=== PATIENT | female | born 1930 | race Caucasian/White ===

== ENCOUNTER 2018-03-07 12:31 | Inpatient (IN) ==
[2018-03-07] MEDS ORDERED: *HR* LORazepam 1 MG TABLET PO ONE (13:04)
--- NOTE | 2018-03-07 13:42 | Emergency Department Note ---
Disposition Clinical Impression: Suicidal ideation Urinary tract infection Qualifiers: Urinary tract infection type: acute cystitis Hematuria presence: with hematuria Qualified Code(s): N30.01 - Acute cystitis with hematuria Disposition: Still a Patient Condition: Good General Adult HPI - General Chief complaint: ED Urogenital-Female Stated complaint: UTI Time Seen by Provider: 03/07/18 12:40 Source: patient Limitations: no limitations Nursing Notes Reviewed: Yes Vital Signs Reviewed: Yes - History of Present Illness HPI Narrative: Female patient with indwelling catheter presenting to the emergency department complaining of a UTI. States she was sent here by her primary care physician for admission. She has no complaints currently. Family is at bedside stating that she has not been acting herself for the past 3 days. They deny any trauma. Pain Scale: 0 - Related Data Home Medications Medication Instructions Recorded Confirmed Aspirin Enteric Coated [Aspirin EC] 81 mg PO DAILY 12/31/16 03/07/18 Calcium Crb,Cit/D3/Min34/Antonio 1 each PO DAILY 12/31/16 03/07/18 [Citracal + Bone Density Tablet] Ergocalciferol (VITAMIN D2) 50,000 unit PO QWEEK 12/31/16 03/07/18 [Vitamin D2] Gluc Quan/Chondro Quan A/Vit C/Mn 1 each PO DAILY 12/31/16 03/07/18 [Glucosamine Chondroitin Tab] Lansoprazole [Prevacid] 30 mg PO DAILY 12/31/16 03/07/18 Metformin HCl [Glucophage] 1,000 mg PO BID 12/31/16 03/07/18 Oxygen 2 l NS HS 12/31/16 03/07/18 Triamterene/HCTZ 37.5/25mg 1 tab PO DAILY 12/31/16 03/07/18 [Dyazide] amLODIPine [Norvasc] 5 mg PO DAILY 12/31/16 03/07/18 Oxybutynin [Ditropan] 5 mg PO BID 11/11/17 03/07/18 Trazodone HCl 150 mg PO HS 11/15/17 03/07/18 Magnesium Oxide [Magnesium] 400 mg PO DAILY 03/07/18 03/07/18 Meloxicam [Meloxicam] 7.5 mg PO BID 03/07/18 03/07/18 Previous Rx's Medication Instructions Recorded Atorvastatin [Lipitor] 40 mg PO HS tablet 11/16/17 LORazepam [Ativan] 0.5 mg PO TID 5 Days #15 tablet 11/16/17 Sennosides/Docusate Sodium [Senna 2 each PO BID tablet 11/16/17 Plus] Allergies Allergy/AdvReac Type Severity Reaction Status Date / Time atorvastatin [From Lipitor] Allergy Hives Verified 07/23/15 16:34 bacitracin Allergy Blister Verified 07/23/15 16:34 [From Neosporin ([id number])] brompheniramine Allergy See Verified 07/23/15 16:34 [From Drixoral] Comments codeine Allergy Rash Verified 07/23/15 16:34 Cyclobenzaprine Allergy Fatigued Verified 07/23/15 16:34 [From Flexeril] dexbrompheniramine Allergy See Verified 07/23/15 16:34 [From Drixoral] Comments Erythromycin Base Allergy Rash Verified 07/23/15 16:34 [From Erythrocin] Neomycin Allergy Blister Verified 07/23/15 16:34 [From Neosporin ([id number])] Penicillins [PCN] Allergy Rash Verified 07/23/15 16:34 polymyxin B Allergy Blister Verified 07/23/15 16:34 [From Neosporin ([id number])] pseudoephedrine Allergy See Verified 07/23/15 16:34 [From Drixoral] Comments trospium Allergy Swelling Verified 07/23/15 16:34 of Lip/Tongue/Throat All systems ED: reviewed and negative except as stated. Constitutional: Denies: fever, chills ENT ED: Denies: congestion Cardiovascular: Denies: chest pain, palpitations, syncope Respiratory: Denies: cough, dyspnea Gastrointestinal: Reports: abdominal pain (Suprapubic). Denies: nausea, vomiting, diarrhea, hematemesis, melena, hematochezia Genitourinary: Reports: other (Indwelling Alexandra catheter) Musculoskeletal: Denies: back pain Integumentary: Denies: rash Psychiatric: Reports: anxiety Past Medical History - Past Medical History Attestation: Yes The following information was validated with the patient. Source: patient Medical history: Reports: COPD, diabetes, GERD, hyperlipidemia, RA, thyroid disease, other Surgical history: Reports: cataract Psychiatric history: Reports: anxiety, depression ADMIN ASST history: Reports: no ADMIN ASST history - Social History Smoking Status: Former smoker Smokeless Tobacco Status: No Alcohol use: Reports: none Drug use: Reports: none Physical Exam - General Limitations: no limitations General appearance: alert, in no apparent distress Course Course Narrative: Female patient presenting to emergency with a complaint of Chronic UTIs. She is very anxious. She is requesting her Ativan that she generally takes at home but did not take today. She states that she did not like him to the emergency department by her primary care physician suggested she come to the hospital get admitted. She has been on antibiotics 2 times with no relief of her urinary tract infection. He does have a chronic indwelling Alexandra she is unsure why other than she is incontinent. She denies any fevers or chills. He states she has been admitted before for what appeared to be sepsis from a UTI that was not cured outpatient. We will get basic labs on patient and get a urine on her. We will attempt to contact her primary care physician. - Reevaluation(s) Reevaluation #1: We will get basic lab workup on patient and start her on Bactrim at this time. She is now stating that she just wants to . She stated this several times our social work program coordinator. We have pink slipped her. We will have her evaluated by Geriatric psych. Time: 14:12 - Consultations Consultation #1: I spoke with one of the workers at Dr. Alvarenga's office. She states that Dr. Alvarenga told her to call the patient to come to the emergency room to have her Alexandra changed and be started on IV antibiotics. Urine culture from [facility] recently that was positive for Klebsiella in her urine. We have microbiology that is positive for this here 2. The micro-on March 02 shows the sensitivities are consistent with the same micro-from [facility]. Time: 14:08 Consultation #2: Dr Meek accepted pt in stable condition Time: 16:06 Vital Signs Temperature 97.4 F L 03/07/18 12:34 Pulse Rate 91 03/07/18 12:34 Respiratory Rate 16 03/07/18 12:34 Blood Pressure 106/71 03/07/18 12:34 O2 Sat by Pulse Oximetry 96 03/07/18 12:34 Temperature 97.4 F L 03/07/18 12:58 Pulse Rate 79 03/07/18 14:43 Respiratory Rate 18 03/07/18 16:23 Blood Pressure 110/69 03/07/18 16:23 O2 Sat by Pulse Oximetry 96 03/07/18 14:43 Oxygen Delivery Oxygen Delivery Room Air Medical Decision Making - Medical Records Medical records reviewed: Yes I reviewed the patient's medical records. - Lab Data Lab results reviewed: Yes I reviewed the patient's lab results. Result diagrams: 03/07/18 13:58 03/07/18 13:58 Lab Results 03/07/18 03/07/18 03/07/18 Range/Units 13:58 13:58 16:04 WBC 10.6 (4.3-11.1) K/mcL RBC 4.14 (3.82-4.97) M/mcL Hgb 12.3 (11.5-15.4) g/dL Hct 36.1 (35.3-44.9) % MCV 87.2 (83.0-100.0) fL MCH 29.7 (28.0-33.3) pg MCHC 34.1 (31.6-35.5) g/dL RDW 12.9 (11.5-14.5) % Plt Count 167 (140-400) K/mcL MPV 10.3 (9.4-12.4) fL Immature Gran % 0.4 (0-4) % Seg Neutrophils % 69.0 % Lymphocytes % 20.2 % Monocytes % 9.0 % Eosinophils % 1.1 % Basophils % 0.3 % Neutrophils # 7.3 (1.6-8.9) K/mcL Lymphocytes # 2.2 (0.6-4.6) K/mcL Monocytes # 1.0 (0.0-1.3) K/mcL Eosinophils # 0.1 (0.0-0.6) K/mcL Basophils # 0.0 (0.0-0.2) K/mcL Sodium 138 (136-145) mEq/L Potassium 4.6 (3.5-5.1) mEq/L Chloride 101 (98-107) mEq/L Carbon Dioxide 27 (23-29) mEq/L BUN 25 H (8-23) mg/dL Creatinine 1.06 (0.60-1.20) mg/dL Est GFR ( Amer) 60 (> 60) Est GFR (Non-Af Amer) 49 L (> 60) BUN/Creatinine Ratio 24 (6-26) Glucose 115 H (70-105) mg/dL Calculated Osmolality 291 (280-300) Calcium 9.5 (8.6-10.3) mg/dL Urine Color Yellow (Yellow) Urine Clarity Clear (Clear) Urine pH 8.0 (5.0-8.0) pH Units Ur Specific [place] 1.016 (1.010-1.025) Urine Protein Trace (Neg-Trace) mg/dL Urine Glucose (UA) Normal (Normal) mg/dL Urine Ketones Negative (Negative) mg/dL Urine Blood Negative (Negative) Urine Nitrite Negative (Negative) Urine Bilirubin Negative (Negative) Urine Urobilinogen Normal (Normal) mg/dL Ur Leukocyte Esterase Moderate H (Negative) Urine Microscopic RBC 3-5 H (0-3) per hpf Urine Microscopic WBC 30-50 H (0-3) per hpf Ur Squamous Epith Cells Many H (None-Few) per lpf Urine Bacteria None Seen (None-Few) per hpf Hyaline Casts None Seen (None-Few) per lpf Ur Culture Indicated? NO. A (NO) Salicylates < 2.5 L (15.0-30.0) mg/dL Acetaminophen < 10 L (10-20) mcg/mL Ethyl Alcohol < 10 (Less than 10) mg/dL
[2018-03-07] MEDS ORDERED: D5 IVPB STA (14:12)
[2018-03-07] MEDS ORDERED: WATER IVPB STA (14:12)
[2018-03-07] MEDS ORDERED: SULFAMETHOXAZOLE IVPB STA (14:12)
[2018-03-07] MEDS ORDERED: TRIMETH IVPB STA (14:12)
[2018-03-07 14:13] LABS: Basophils % 0.3 %; Eosinophils # 0.1 K/mcL (0.0-0.6); Eosinophils % 1.1 %; Hematocrit 36.1 % (35.3-44.9); Hemoglobin 12.3 g/dL (11.5-15.4); Immature Granulocytes % 0.4 % (0-4); Lymphocytes # 2.2 K/mcL (0.6-4.6); Lymphocytes % 20.2 %; Mean Corpuscular HGB Conc 34.1 g/dL (31.6-35.5); Mean Corpuscular Hemoglobin 29.7 pg (28.0-33.3); Mean Corpuscular Volume 87.2 fL (83.0-100.0); Mean Platelet Volume 10.3 fL (9.4-12.4); Neutrophils # 7.3 K/mcL (1.6-8.9); Platelet Count 167 K/mcL (140-400); Red Blood Count 4.14 M/mcL (3.82-4.97); Red Cell Distribution Width 12.9 % (11.5-14.5)
--- NOTE | 2018-03-07 14:46 | Emergency Department Note ---
Disposition Clinical Impression: Urinary tract infection Qualifiers: Urinary tract infection type: acute cystitis Hematuria presence: with hematuria Qualified Code(s): N30.01 - Acute cystitis with hematuria Disposition: Still a Patient Referrals: Aldo Alvarenga MD [Primary Care Provider] - Forms: ED Satisfaction Letter General Adult HPI - General Chief complaint: ED Urogenital-Female Stated complaint: UTI Time Seen by Provider: 03/07/18 12:40 Source: patient Limitations: no limitations - History of Present Illness Pain Scale: 0 - Related Data Home Medications Medication Instructions Recorded Confirmed Aspirin Enteric Coated [Aspirin EC] 81 mg PO DAILY 12/31/16 11/11/17 Calcium Crb,Cit/D3/Min34/Antonio 1 each PO DAILY 12/31/16 11/11/17 [Citracal + Bone Density Tablet] Ergocalciferol (VITAMIN D2) 50,000 unit PO QWEEK 12/31/16 11/11/17 [Vitamin D2] Gluc Quan/Chondro Quan A/Vit C/Mn 1 each PO DAILY 12/31/16 11/11/17 [Glucosamine Chondroitin Tab] Lansoprazole [Prevacid] 30 mg PO DAILY 12/31/16 11/11/17 Magnesium Oxide [Magnesium] 500 mg PO DAILY 12/31/16 11/11/17 Metformin HCl [Glucophage] 1,000 mg PO BID 12/31/16 11/11/17 Oxygen 2 l NS HS 12/31/16 11/11/17 Potassium Chloride [Klor-Con 10] 10 meq PO BID 12/31/16 11/11/17 Triamterene/HCTZ 37.5/25mg 1 tab PO DAILY 12/31/16 11/11/17 [Dyazide] amLODIPine [Norvasc] 5 mg PO DAILY 12/31/16 11/11/17 Oxybutynin [Ditropan] 5 mg PO BID 11/11/17 11/11/17 Levothyroxine [Synthroid] 25 [place] [address]/15/17 11/15/17 Trazodone HCl 150 mg PO HS 11/15/17 11/15/17 Previous Rx's Medication Instructions Recorded Atorvastatin [Lipitor] 40 mg PO HS tablet 11/16/17 Cefdinir [Omnicef] 300 mg PO BID capsule 11/16/17 LORazepam [Ativan] 0.5 mg PO TID 5 Days #15 tablet 11/16/17 Nitrofurantoin (BID) [Macrobid] 100 mg PO BIDWM capsule 11/16/17 Sennosides/Docusate Sodium [Senna 2 each PO BID tablet 11/16/17 Plus] Allergies Allergy/AdvReac Type Severity Reaction Status Date / Time atorvastatin [From Lipitor] Allergy Hives Verified 07/23/15 16:34 bacitracin Allergy Blister Verified 07/23/15 16:34 [From Neosporin ([id number])] brompheniramine Allergy See Verified 07/23/15 16:34 [From Drixoral] Comments codeine Allergy Rash Verified 07/23/15 16:34 Cyclobenzaprine Allergy Fatigued Verified 07/23/15 16:34 [From Flexeril] dexbrompheniramine Allergy See Verified 07/23/15 16:34 [From Drixoral] Comments Erythromycin Base Allergy Rash Verified 07/23/15 16:34 [From Erythrocin] Neomycin Allergy Blister Verified 07/23/15 16:34 [From Neosporin ([id number])] Penicillins [PCN] Allergy Rash Verified 07/23/15 16:34 polymyxin B Allergy Blister Verified 07/23/15 16:34 [From Neosporin ([id number])] pseudoephedrine Allergy See Verified 07/23/15 16:34 [From Drixoral] Comments trospium Allergy Swelling Verified 07/23/15 16:34 of Lip/Tongue/Throat Past Medical History - Past Medical History Medical history: Reports: COPD, diabetes, GERD, hyperlipidemia, RA, thyroid disease, other Surgical history: Reports: cataract Psychiatric history: Reports: anxiety, depression BEADING INSTALLER history: 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 I agree with the documented findings, disposition and treatment plan as described except to the extent set forth below. Patient seen with emergency medicine resident Dr. Davida Hancock, Please see a copy of his note for details of the H&P, ED evaluation, management and disposition. I have independently evaluated the patient and confirmed appropriate portions of the history and physical exam. Briefly: 87-year-old female anxiety and some dementia presents by EMS for UTI. Patient had a Alexandra catheter changed, urinalysis suggestive for UTI. Patient did make statements of suicidal ideation which is not characteristic for her per family member and medical record review. Patient will undergo comprehensive evaluation and then likely be admitted to the hospitalist service for medical clearance and then evaluation by mental health service. Admission disposition pending Time: 14:44 Vital Signs Temperature 97.4 F L 03/07/18 12:34 Pulse Rate 91 03/07/18 12:34 Respiratory Rate 16 03/07/18 12:34 Blood Pressure 106/71 03/07/18 12:34 O2 Sat by Pulse Oximetry 96 03/07/18 12:34 Temperature 97.4 F L 03/07/18 12:58 Pulse Rate 79 03/07/18 14:43 Respiratory Rate 18 03/07/18 14:43 Blood Pressure 118/74 03/07/18 14:43 O2 Sat by Pulse Oximetry 96 03/07/18 14:43 Oxygen Delivery Oxygen Delivery Room Air Medical Decision Making - Lab Data Result diagrams: 03/07/18 13:58 Lab Results 03/07/18 Range/Units 13:58 WBC 10.6 (4.3-11.1) K/mcL RBC 4.14 (3.82-4.97) M/mcL Hgb 12.3 (11.5-15.4) g/dL Hct 36.1 (35.3-44.9) % MCV 87.2 (83.0-100.0) fL MCH 29.7 (28.0-33.3) pg MCHC 34.1 (31.6-35.5) g/dL RDW 12.9 (11.5-14.5) % Plt Count 167 (140-400) K/mcL MPV 10.3 (9.4-12.4) fL Immature Gran % 0.4 (0-4) % Seg Neutrophils % 69.0 % Lymphocytes % 20.2 % Monocytes % 9.0 % Eosinophils % 1.1 % Basophils % 0.3 % Neutrophils # 7.3 (1.6-8.9) K/mcL Lymphocytes # 2.2 (0.6-4.6) K/mcL Monocytes # 1.0 (0.0-1.3) K/mcL Eosinophils # 0.1 (0.0-0.6) K/mcL Basophils # 0.0 (0.0-0.2) K/mcL
[2018-03-07 14:47] LABS: BUN/Creatinine Ratio 24 (6-26); Blood Urea Nitrogen 25 mg/dL (8-23); Calcium 9.5 mg/dL (8.6-10.3); Carbon Dioxide 27 mEq/L (23-29); Chloride 101 mEq/L (98-107); Glucose 115 mg/dL (70-105); Osmolality,Calculated 291 (280-300); Potassium 4.6 mEq/L (3.5-5.1); Sodium 138 mEq/L (136-145); eGFR For African Americans 60 (> 60); eGFR For Non-African Americans 49 (> 60)
[2018-03-07 15:50] LABS: Acetaminophen < 10 mcg/mL (10-20); Ethanol < 10 mg/dL (Less than 10); Salicylate < 2.5 mg/dL (15.0-30.0)
[2018-03-07 16:19] LABS: Bilirubin,Urine Negative (Negative); Blood,Urine Negative (Negative); Clarity,Urine Clear (Clear); Color,Urine Yellow (Yellow); Glucose,Urine (UA) Normal (Normal); Ketones,Urine Negative (Negative); Leukocyte Esterase,Urine Moderate (Negative); Nitrite,Urine Negative (Negative); Protein,Urine Trace mg/dL (Neg-Trace); Specific Gravity,Urine 1.016 (1.010-1.025); Urobilinogen,Urine Normal (Normal)
[2018-03-07 16:22] LABS: Bacteria,Urine None Seen per hpf (None-Few); Hyaline Casts,Urine None Seen per lpf (None-Few); Squamous Epithelial Cell,Urine Many per lpf (None-Few); WBC,Urine 30-50 per hpf (0-3)
[2018-03-07 16:40] LABS: Amphetamine Screen,Urine Negative ng/mL (Cutoff=1000); Barbiturate Screen,Urine Negative ng/mL (Cutoff=200); Benzodiazepines Screen,Urine Negative ng/mL (Cutoff=200); Cannabinoid Screen,Urine Negative ng/mL (Cutoff = 50); Cocaine Screen,Urine Negative ng/mL (Cutoff= 300); Opiate Screen,Urine Positive ng/mL (Cutoff=300); Phencyclidine Screen,Urine Negative ng/mL (Cutoff=25)
[2018-03-07] MEDS ORDERED: D5% in Water 1,000 ML IVC PRN (17:09)
[2018-03-07] MEDS ORDERED: *HR* Dextrose 50 % in Water (Syg) 50 ML SYRINGE IVP PRN (17:09)
[2018-03-07] MEDS ORDERED: Dextrose Gel 15 GM/37.5 ML TUBE PO PRN ×2 (17:09)
[2018-03-07] MEDS ORDERED: *HR* LORazepam 2 MG/ML VIAL IVP ONE (17:49)
[2018-03-07] MEDS ORDERED: Naloxone 0.4 MG/ML INJ IVP PRN (17:52)
--- NOTE | 2018-03-07 18:18 | Internal Med History&Physical ---
<Pop Balderas - Last Filed: 03/07/18 19:26> Date of Encounter: 03/07/18 Time of Encounter: 17:00 Internal Medicine - H&P: HPI Chief complaint: Urinary Urgency/Frequency/UTI sx Admitted From: Emergency Dept Plans for Post Hospital Care: Home History of present illness: Ms. Fonseca is a 87 year old female w/PMH of COPD, diabetes controlled with oral antihyperglycemic medications, GERD, HLD, RA, and thyroid disease presents from the ED w/CC of urinary urgency, frequency, and UTI sx for the past several days. Pt. reports hx of chronic UTIs w/last hospitalization on November 11, 2017 for UTI/urosepsis. Also reports urinary and fecal incontinence. Sent to ED by PCP d/t being on abx x2 for UTI w/o relief. Alexandra changed in ED. Pt. denies recent illness, fever, chills, nausea, vomiting, changes in vision, headache, unusual bleeding, cough, chest congestion, chest pain, shortness of breath, abdominal pain, diarrhea, constipation, dizziness, lightheadedness, numbness, tingling, pre-syncope, or syncope. Past Med Surg Social Fam HX - Past Medical History Source: patient, old records reviewed, obtained from family Medical history: COPD, diabetes, GERD, hyperlipidemia, RA, thyroid disease, other Psychiatric history: anxiety, depression - Past Surgical History Surgical History: cataract Additional surgical history: tonsils,carpal tunnel - Social History Smoking Status: Former smoker Packs per day: 1 PPD - Reports quitting >30 years ago Smokeless Tobacco Status: No Alcohol use: none Drug use: none Current living situation: Home, With Family Activity Level: Uses cane/walker Recent Out of Country Travel Within the Last 8 Weeks: No Exposure or Possible Exposure to Illness During Travel: No - Family History Daughter Race: Family Member Ethnicity: Non- Living Status: Still Living Hx Family Cardiac Disorders: Yes Mother Race: Family Member Ethnicity: Non- Living Status: Age at : 73 Cause of : Colon cancer Hx Family Cancer: Yes (Colon) Father Race: Family Member Ethnicity: Non- Living Status: Age at : 71 Cause of : [place] Hx Family Cardiac Disorders: Yes ([place], [place]) Internal Medicine - H&P: Meds Aspirin Enteric Coated [Aspirin EC] 81 mg PO DAILY 12/31/16 [History] Calcium Crb,Cit/D3/Min34/Antonio [Citracal + Bone Density Tablet] 1 each PO DAILY 12/31/16 [History] Ergocalciferol (VITAMIN D2) [Vitamin D2] 50,000 unit PO QWEEK 12/31/16 [History] Gluc Quan/Chondro Quan A/Vit C/Mn [Glucosamine Chondroitin Tab] 1 each PO DAILY [History] Lansoprazole [Prevacid] 30 mg PO DAILY 12/31/16 [History] Metformin HCl [Glucophage] 1,000 mg PO BID 12/31/16 [History] Oxygen 2 l NS HS 12/31/16 [History] Triamterene/HCTZ 37.5/25mg [Dyazide] 1 tab PO DAILY 12/31/16 [History] amLODIPine [Norvasc] 5 mg PO DAILY 12/31/16 [History] Oxybutynin [Ditropan] 5 mg PO BID 11/11/17 [History] Trazodone HCl 150 mg PO HS 11/15/17 [History] Atorvastatin [Lipitor] 40 mg PO HS tablet 11/16/17 [Rx] LORazepam [Ativan] 0.5 mg PO TID 5 Days #15 tablet 11/16/17 [Rx] Sennosides/Docusate Sodium [Senna Plus] 2 each PO BID tablet 11/16/17 [Rx] Magnesium Oxide [Magnesium] 400 mg PO DAILY 03/07/18 [History] Meloxicam [Meloxicam] 7.5 mg PO BID 03/07/18 [History] 3 Allergy/AdvReac Type Severity Reaction Status Date / Time bacitracin Allergy Blister Verified 07/23/15 16:34 [From Neosporin ([id number])] brompheniramine Allergy See Verified 07/23/15 16:34 [From Drixoral] Comments codeine Allergy Rash Verified 07/23/15 16:34 Cyclobenzaprine Allergy Fatigued Verified 07/23/15 16:34 [From Flexeril] dexbrompheniramine Allergy See Verified 07/23/15 16:34 [From Drixoral] Comments Erythromycin Base Allergy Rash Verified 07/23/15 16:34 [From Erythrocin] Neomycin Allergy Blister Verified 07/23/15 16:34 [From Neosporin ([id number])] Penicillins [PCN] Allergy Rash Verified 07/23/15 16:34 polymyxin B Allergy Blister Verified 07/23/15 16:34 [From Neosporin ([id number])] pseudoephedrine Allergy See Verified 07/23/15 16:34 [From Drixoral] Comments trospium Allergy Swelling Verified 07/23/15 16:34 of Lip/Tongue/Throat All Systems PM: A 10-system review of systems was performed and is negative for pertinent findings except as documented above in the HPI. - Constitutional Constitutional: fatigue, weakness (Bilateral LEs), no chills, no fever(s), no night sweats - EENT Eyes: no change in vision, no discharge, no pain, no photophobia Ears: no ear discharge, no ear pain, no tinnitus Nose, mouth and throat: no dysphagia, no nasal discharge, no neck pain, no sore throat - Breasts Breasts: as per HPI - Cardiovascular Cardiovascular ROS IM: no chest pain, no diaphoresis, no dyspnea, no lightheadedness, no palpitations, no syncope - Respiratory Respiratory: no cough, no dyspnea, no wheezing, no excessive phlegm production - Gastrointestinal Gastrointestinal: no abdominal pain, no diarrhea, no hematemesis, no hematochezia, no melena, no nausea, no vomiting - Genitourinary Genitourinary: no change in urinary stream, no dysuria, no flank pain, no hematuria - Musculoskeletal Musculoskeletal ROS IM: as per HPI, arthralgias, no numbness, no tingling - Integumentary Integumentary IM: no rash, no unusual bruising - Neurological Neurological ROS: as per HPI, confusion, weakness, no convulsions, no focal weakness, no numbness, no tingling, no tremor(s) - Psychiatric Psychiatric: as per HPI, anxiety, depression - Endocrine Endocrine IM: as per HPI - Hematologic/Lymphatic Hematologic/Lymphatic: no easy bruising - Allergic/Immunologic Allergic/Immunologic: as per HPI - Constitutional Vitals: Temp Pulse Resp BP Pulse Ox 97.4 F L 79 18 110/69 96 03/07/18 12:58 03/07/18 14:43 03/07/18 16:23 03/07/18 16:23 03/07/18 14:43 General appearance: Present: cooperative, mild distress (Anxiety), A&O X 3, pleasant, obese, answers questions appropriately - Head Head exam: Present: atraumatic, normocephalic - Eye Eye exam: Present: PERRL, conjuntiva pink, sclera anicteric Pupils: Present: PERRL - ENT ENT exam: Present: normal exam - Neck Neck exam general surgery: Present: normal inspection, supple, trachea midline. Absent: lymphadenopathy - Respiratory Respiratory exam: Present: CTAB. Absent: accessory muscle use, rales, rhonchi, wheezes - GI/Abdominal GI/Abdominal exam: Present: normal bowel sounds, soft, no peritoneal signs. Absent: distended, tenderness - Rectal Rectal exam: Present: deferred - Additional comments: exam deferred. - Extremities Exam Extremities exam: Present: warm, radial pulses palpable and symmetrical. Absent : calf tenderness, cyanotic, pedal edema - Back Exam Back exam: Present: normal inspection - Neurological Exam Neurological exam: Present: CN II-XII intact, oriented X3, no focal deficits. Absent: pronater drift, facial droop, speech deficit - Psychiatric Psychiatric exam: Present: anxious - Skin Skin exam: Present: dry, intact Internal Med - H&P Results - Labs CBC & Chem 7: 03/07/18 13:58 03/07/18 13:58 - EKG Data EKG shows normal: sinus rhythm - EKG Data Prior EKG available for review: no EKG comments: 03/07/18 19:25 EKG dated 03/07/18 shows sinus rhythm with RBBB. - Assessment and plan (1) Urinary tract infection Current Visit: Yes Status: Acute Assessment and plan: Acute on chronic UTI. Hospitalized on 11/11/17 for UTI. Reports hx of chronic UTIs. Indwelling Alexandra catheter changed today in ED. Microbiology C&S report shows sensitivity to Bactrim from previous admission. ID consult ordered and requires follow-up from morning provider d/t consult being placed after 5 p.m. IVPB Bactrim started in ED @ 800 mg. Will reduce to 400 mg. daily d/t current renal dysfunction. Pt. does not currently meet sepsis criteria w/VS of 97.9F temp, HR of 75, RR of 14, BP of 121/64, and SpO2 of 93% on RA. Pt. has hx of urosepsis and should be monitored closely. Continuous cardiac telemetry. Supplemental O2 w/titration and SpO2 monitoring. Monitor f/u labs, I&O, and daily weight. Pt. discussed w/Dr. Burns who agrees w/plan of care. Pt. is high risk for further morbidity and increasing infection d/t current sx, failed OP therapy for UTI, hx of recurrent UTIs and urosepsis, generalized weakness, current renal dysfunction, hx, and risk factors of hopelessness and anxiety/ depression r/t health. Inpatient. Qualifiers: Urinary tract infection type: acute cystitis Hematuria presence: with hematuria Qualified Code(s): N30.01 - Acute cystitis with hematuria (2) Weakness Current Visit: Yes Status: Acute Assessment and plan: Acute weaknes d/t current and re-current UTIs. Pt. reports being in an ECF post- discharge in 11/28 for rehabilitation. States she has bilateral LE weakness and left hip pain. Falls/safety precautions. Up with assist only. PT/OT consults ordered to assess for rehabilitation needs. (3) GERD (gastroesophageal reflux disease) Current Visit: Yes Status: Chronic Assessment and plan: Hx of chronic GERD. Continue pts. PO Prevacid. IVP Zofran 4 mg Q6HR PRN for N/ V. Qualifiers: Esophagitis presence: esophagitis presence not specified Qualified Code(s) : K21.9 - Gastro-esophageal reflux disease without esophagitis (4) Rheumatoid arthritis Current Visit: Yes Status: Chronic Assessment and plan: Hx of chronic RA. Will hold pts. Meloxicam d/t current renal dysfunction. Tylenol 650 mg Q6HR PRN for mild pain. Tramadol 50 mg TID PRN for moderate pain. Qualifiers: Rheumatoid arthritis location: multiple sites Rheumatoid factor presence: unspecified presence Qualified Code(s): M06.9 - Rheumatoid arthritis, unspecified (5) Thyroid disease Current Visit: Yes Status: Chronic Assessment and plan: Hx of chronic thyroid disease. TSH and Free T4 in a.m. labs. Pt. does not currently take Synthroid but reports taking in the past. (6) Anxiety and depression Current Visit: Yes Status: Chronic Assessment and plan: Hx of chronic anxiety and depression. Pt. reports that she just wants to go to sleep and not wake up. States that she is 87 years old and has anxiety about her health and health of her family. Pt. is clear that she has no suicidal ideations or feelings of self-harm. More feelings of despair and hopelessness. Continue pts. trazodone and Ativan. Monitor pt. for signs of increasing anxiety or depression. Will order sitter if needed. (7) HLD (hyperlipidemia) Current Visit: Yes Status: Chronic Assessment and plan: Hx of chronic HLD. Lipid panel in a.m. labs. Continue patient's Lipitor. Qualifiers: Hyperlipidemia type: pure hypercholesterolemia Qualified Code(s): E78.00 - Pure hypercholesterolemia, unspecified; E78.0 - Pure hypercholesterolemia (8) COPD (chronic obstructive pulmonary disease) Current Visit: Yes Status: Chronic Assessment and plan: Hx of chronic COPD. Stable. Supplemental O2 w/titration and SpO2 monitoring. Qualifiers: COPD type: emphysema Emphysema type: unspecified Qualified Code(s): J43.9 - Emphysema, unspecified (9) Constipation Current Visit: Yes Status: Chronic Assessment and plan: Hx of chronic constipation. Pt. reports no BM since Wednesday. Will continue pts. Senna and add Colace 200 mg daily. Monitor I&O. Qualifiers: Constipation type: other constipation type Qualified Code(s): K59.09 - Other constipation (10) Diabetes 1.5, managed as type 2 Current Visit: Yes Status: Chronic Assessment and plan: Hx of diabetes controlled by oral anti-hyperglycemic medications. Hold Glucophage and administer low-dose correction insulin sliding scale with hypoglycemic protocol. BG checks ACHS. A1c in a.m. labs. (11) DVT prophylaxis Current Visit: Yes Status: Acute Assessment and plan: Bilateral SCDs on LEs for DVT prophylaxis. (12) Hopelessness Current Visit: Yes Status: Acute Assessment and plan: Acute on chronic feelings of hopelessness. ED notes state that pt. wants to resulting in pt. being pink-slipped. During admission assessment, I clarified with the patient that she is not having suicidal ideations or feelings of harming herself. Pt. states that she is tired of being sick and has high anxiety regarding her poor health as well as poor health of family members. Pt. states that she would just like to go to sleep and not wake up. Denies ever having thoughts of suicide. Will place sitter if anxiety or depression increases. - Time Spent With Patient Total time spent is greater than 50% in coordination of care (as documented) at patient's floor/unit and/or counseling patient: Greater than 35 minutes <Sadie Burns - Last Filed: 03/07/18 22:24> Date of Encounter: 03/07/18 Internal Medicine - H&P: HPI History of present illness: Ms. Fonseca is a 87 year old female All Systems PM: A 10-system review of systems was performed and is negative for pertinent findings except as documented above in the HPI. - Constitutional Vitals: Temp Pulse Resp BP Pulse Ox 97.9 F 75 14 121/64 93 03/07/18 18:46 03/07/18 18:46 03/07/18 18:46 03/07/18 18:46 03/07/18 18:46 Internal Med - H&P Results - Labs CBC & Chem 7: 03/07/18 13:58 03/07/18 13:58 - Attending Attestation I have seen and examined this patient independently. I have discussed with KEG WASHER Mr Balderas regarding the management plan. Agree with the documentation. - Assessment and plan (1) Diabetes 1.5, managed as type 2 Current Visit: Yes Status: Chronic (2) COPD (chronic obstructive pulmonary disease) Current Visit: Yes Status: Chronic Qualifiers: COPD type: emphysema Emphysema type: unspecified Qualified Code(s): J43.9 - Emphysema, unspecified (3) Weakness Current Visit: Yes Status: Acute (4) Constipation Current Visit: Yes Status: Chronic Qualifiers: Constipation type: other constipation type Qualified Code(s): K59.09 - Other constipation (5) Urinary tract infection Current Visit: Yes Status: Acute Qualifiers: Urinary tract infection type: acute cystitis Hematuria presence: with hematuria Qualified Code(s): N30.01 - Acute cystitis with hematuria (6) GERD (gastroesophageal reflux disease) Current Visit: Yes Status: Chronic Qualifiers: Esophagitis presence: esophagitis presence not specified Qualified Code(s) : K21.9 - Gastro-esophageal reflux disease without esophagitis (7) Rheumatoid arthritis Current Visit: Yes Status: Chronic Qualifiers: Rheumatoid arthritis location: multiple sites Rheumatoid factor presence: unspecified presence Qualified Code(s): M06.9 - Rheumatoid arthritis, unspecified (8) Thyroid disease Current Visit: Yes Status: Chronic (9) Anxiety and depression Current Visit: Yes Status: Chronic (10) DVT prophylaxis Current Visit: Yes Status: Acute (11) HLD (hyperlipidemia) Current Visit: Yes Status: Chronic Qualifiers: Hyperlipidemia type: pure hypercholesterolemia Qualified Code(s): E78.00 - Pure hypercholesterolemia, unspecified; E78.0 - Pure hypercholesterolemia (12) Hopelessness Current Visit: Yes Status: Acute - Time Spent With Patient Total time spent is greater than 50% in coordination of care (as documented) at patient's floor/unit and/or counseling patient:
[2018-03-07] MEDS ORDERED: Ondansetron 4 MG/2 ML VIAL IVP PRN (18:28)
[2018-03-07] MEDS ORDERED: traMADol 50 MG TABLET PO PRN (18:55)
[2018-03-07] MEDS ORDERED: Acetaminophen 325 MG TABLET PO PRN (18:55)
[2018-03-07] MEDS: Sennosides/Docusate Sodium TABLET PO SCH (20:23)
[2018-03-07] MEDS: Lactobacillus 1 EACH CAP.SPRINK PO SCH (20:23)
[2018-03-07] MEDS: traZODone 50 MG TABLET PO SCH (20:24)
[2018-03-07] MEDS: Insulin LISPRO 300 UNITS/3 ML VIAL SQ SCH (20:42)
[2018-03-07] MEDS ORDERED: *HR* LORazepam 0.5 MG TABLET PO SCH (21:00)
[2018-03-08 05:46] LABS: Basophils % 0.3 %; Eosinophils # 0.3 K/mcL (0.0-0.6); Eosinophils % 3.6 %; Hemoglobin 11.4 g/dL (11.5-15.4); Immature Granulocytes % 0.4 % (0-4); Lymphocytes # 1.3 K/mcL (0.6-4.6); Mean Corpuscular HGB Conc 32.6 g/dL (31.6-35.5); Mean Corpuscular Hemoglobin 28.3 pg (28.0-33.3); Mean Corpuscular Volume 86.8 fL (83.0-100.0); Mean Platelet Volume 10.4 fL (9.4-12.4); Monocytes # 0.8 K/mcL (0.0-1.3); Monocytes % 10.1 %; Neutrophils # 5.1 K/mcL (1.6-8.9); Platelet Count 157 K/mcL (140-400); Red Blood Count 4.03 M/mcL (3.82-4.97); Red Cell Distribution Width 13.1 % (11.5-14.5); Segmented Neutrophils % 68.6 %
[2018-03-08 06:02] LABS: Alanine Aminotransferase 11 Units/L (7-52); Albumin 3.9 g/dL (3.5-5.7); Albumin/Globulin Ratio 1.8 (1.1-2.2); Alkaline Phosphatase 64 Units/L (34-104); Aspartate Amino Transferase 15 Units/L (13-39); BUN/Creatinine Ratio 18 (6-26); Bilirubin,Total 0.5 mg/dL (0.3-1.0); Blood Urea Nitrogen 17 mg/dL (8-23); Calcium 8.9 mg/dL (8.6-10.3); Carbon Dioxide 29 mEq/L (23-29); Chloride 100 mEq/L (98-107); Chol/HDL Ratio 3.7 (0-4.9); Cholesterol 107 mg/dL (< 200); Globulin 2.2 g/dL (2.4-3.5); Glucose 136 mg/dL (70-105); HDL Cholesterol 29 mg/dL (40-59); LDL Cholesterol,Calculated 34 mg/dL (0-99); Magnesium 1.2 mg/dL (1.6-2.6); Osmolality,Calculated 288 (280-300); Potassium 4.2 mEq/L (3.5-5.1); Sodium 137 mEq/L (136-145); Total Protein 6.1 g/dL (6.4-8.9); Triglycerides 221 mg/dL (< 150); eGFR For African Americans > 60 (> 60); eGFR For Non-African Americans 56 (> 60)
[2018-03-08 07:00] LABS: Estimated Average Glucose 143 mg/dl; Hemoglobin A1C 6.6 %
[2018-03-08] MEDS: Magnesium Oxide 400 MG TABLET PO SCH (08:36)
[2018-03-08] MEDS: Insulin LISPRO 300 UNITS/3 ML VIAL SQ SCH ×4 (08:36→21:16)
[2018-03-08] MEDS: Sennosides/Docusate Sodium TABLET PO SCH ×2 (08:36→21:16)
[2018-03-08] MEDS: amLODIPine 5 MG TABLET PO SCH (08:36)
[2018-03-08] MEDS: Lactobacillus 1 EACH CAP.SPRINK PO SCH (08:36)
[2018-03-08] MEDS: Aspirin Enteric Coated 81 MG Tablet PO SCH (08:36)
[2018-03-08] MEDS ORDERED: D3 PO SCH (09:00)
[2018-03-08] MEDS ORDERED: CHONDRO SU A PO SCH (09:00)
[2018-03-08] MEDS ORDERED: [UNRECOGNIZED DRUG - OTHER] PO SCH (09:00)
[2018-03-08] MEDS ORDERED: [UNRECOGNIZED DRUG - OTHER] PO SCH (09:00)
[2018-03-08] MEDS ORDERED: VIT C PO SCH (09:00)
[2018-03-08] MEDS ORDERED: CALCIUM CRB CIT PO SCH (09:00)
[2018-03-08] MEDS ORDERED: GLUC SU PO SCH (09:00)
[2018-03-08] MEDS: Sulfamethoxazole/Trimeth 10 ML in D5% in Water 500 ML IVPB SCH (09:20)
[2018-03-08] MEDS: *HR* LORazepam 0.5 MG TABLET PO PRN ×2 (12:49→21:27)
--- NOTE | 2018-03-08 13:29 | Infectious Disease Consult ---
Date of Encounter: 03/08/18 Time of Encounter: 13:26 Assessment and Plan (1) UTI (urinary tract infection) Status: Resolved Assessment and plan: Causative organism is klebsiella pneumoniae multidrug resistant susceptible to aminoglycosides, fluoroquinolones and Bactrim. Patient is on Bactrim IV Agree with current management Duration of treatment and 14 days A switched to oral Bactrim; CrCl measured at about 40, no dose adjustment for now, if CrCl gets worse, i'd consider changing patient to oral ciprofloxacin We will sign off, please call us if there is any change in the clinical picture. Qualifiers: Urinary tract infection type: acute cystitis Hematuria presence: without hematuria Qualified Code(s): N30.00 - Acute cystitis without hematuria (2) Allergy to antibiotic Status: Acute Assessment and plan: Multiple antibiotic allergies. Exact reaction not known. Patient tells me she does not remember. (3) Chronic kidney disease, stage 4 (severe) Status: Acute Assessment and plan: crcl 40 Infectious Disease HPI - Data of Consult Patient: new to practice Consult date: 03/08/18 Requesting Physician: Flakito Meek Primary Care Provider: Aldo Alvarenga MD - Consult Narrative Reason for consult: uti History of present illness: Ms. Fonseca is a 87 year old female Patient is an 87-year-old woman admitted to [facility] on 03/07 4 recurrent multidrug resistant UTI. We are consulted for antibiotic recommendations. Patient with extensive past medical history mentioned below including her with arthritis, diabetes mellitus, coronary artery disease, thyroid disease represent a chronic Alexandra catheter. Exact reason why she has a chronic Alexandra is probably due to neurogenic bladder but patient does not know. She tells me that without a Alexandra she leaks urine all day. Patient follows up with urology. I saw notes from our urology team on her previously. She apparently tells me that her Alexandra fell off and the nurses came on 3 different days prior to placement of Alexandra. The third day was successful. Nurse and up getting a urine culture. I asked the nurse why she said because the doctor ordered. Patient is not the best historian and not sure if she had any symptoms at that time there was no documentation. Patient denied any fevers or chills or altered mental status or nausea or vomiting or abdominal pain home. CC: Flakito Meek Past Med Surg Social Fam HX - Past Medical History Medical history: COPD, diabetes, GERD, hyperlipidemia, RA, thyroid disease, other Psychiatric history: anxiety, depression - Past Surgical History Surgical History: cataract Additional surgical history: tonsils,carpal tunnel - Social History Smoking Status: Former smoker Packs per day: 1 PPD - Reports quitting >30 years ago Smokeless Tobacco Status: No Alcohol use: none Drug use: none - Family History Daughter Race: Family Member Ethnicity: Non- Living Status: Still Living Hx Family Cardiac Disorders: Yes Mother Race: Family Member Ethnicity: Non- Living Status: Age at : 73 Cause of : Colon cancer Hx Family Cancer: Yes (Colon) Father Race: Family Member Ethnicity: Non- Living Status: Age at : 71 Cause of : [place] Hx Family Cardiac Disorders: Yes ([place], [place]) Infectious Disease-CN:Meds Aspirin Enteric Coated [Aspirin EC] 81 mg PO DAILY 12/31/16 [History] Calcium Crb,Cit/D3/Min34/Antonio [Citracal + Bone Density Tablet] 1 each PO DAILY 12/31/16 [History] Ergocalciferol (VITAMIN D2) [Vitamin D2] 50,000 unit PO QWEEK 12/31/16 [History] Gluc Quan/Chondro Quan A/Vit C/Mn [Glucosamine Chondroitin Tab] 1 each PO DAILY [History] Lansoprazole [Prevacid] 30 mg PO DAILY 12/31/16 [History] Metformin HCl [Glucophage] 1,000 mg PO BID 12/31/16 [History] Oxygen 2 l NS HS 12/31/16 [History] Triamterene/HCTZ 37.5/25mg [Dyazide] 1 tab PO DAILY 12/31/16 [History] amLODIPine [Norvasc] 5 mg PO DAILY 12/31/16 [History] Oxybutynin [Ditropan] 5 mg PO BID 11/11/17 [History] Trazodone HCl 150 mg PO HS 11/15/17 [History] Atorvastatin [Lipitor] 40 mg PO HS tablet 11/16/17 [Rx] LORazepam [Ativan] 0.5 mg PO TID 5 Days #15 tablet 11/16/17 [Rx] Sennosides/Docusate Sodium [Senna Plus] 2 each PO BID tablet 03/06/18 [Rx] Magnesium Oxide [Magnesium] 400 mg PO DAILY 03/07/18 [History] Meloxicam [Meloxicam] 7.5 mg PO BID 03/07/18 [History] 3 Allergy/AdvReac Type Severity Reaction Status Date / Time bacitracin Allergy Blister Verified 07/23/15 16:34 [From Neosporin ([id number])] brompheniramine Allergy See Verified 07/23/15 16:34 [From Drixoral] Comments codeine Allergy Rash Verified 07/23/15 16:34 Cyclobenzaprine Allergy Fatigued Verified 07/23/15 16:34 [From Flexeril] dexbrompheniramine Allergy See Verified 07/23/15 16:34 [From Drixoral] Comments Erythromycin Base Allergy Rash Verified 07/23/15 16:34 [From Erythrocin] Neomycin Allergy Blister Verified 07/23/15 16:34 [From Neosporin ([id number])] Penicillins [PCN] Allergy Rash Verified 07/23/15 16:34 polymyxin B Allergy Blister Verified 07/23/15 16:34 [From Neosporin ([id number])] pseudoephedrine Allergy See Verified 07/23/15 16:34 [From Drixoral] Comments trospium Allergy Swelling Verified 07/23/15 16:34 of Lip/Tongue/Throat Review of systems: 10 point review of systems done, negative other for what mentioned in history of present illness. Exam - Constitutional Vitals: Temp Pulse Resp BP Pulse Ox 98.9 F 64 15 123/53 94 03/08/18 06:46 03/08/18 06:46 03/08/18 06:46 03/08/18 06:46 03/08/18 08:36 General appearance: no acute distress, no febrile - Head Head exam: Present: atraumatic, normocephalic - Respiratory Respiratory exam: Present: CTAB. Absent: wheezes - Cardiovascular Cardiovascular exam: Present: RRR, +S1, +S2 - GI/Abdominal GI/Abdominal exam: Present: normal bowel sounds, soft. Absent: tenderness Infectious Disease CN: Results - Labs CBC & Chem 7: 03/08/18 05:23 03/08/18 05:23 Consult Discharge Plan - Plan Referrals: Aldo Alvarenga MD [Primary Care Provider] - 03/23/18 2:45 pm
--- NOTE | 2018-03-08 16:23 | Electrocardiograph Report ---
[address] [place] [address] Test Date: 2018-03-07 Pat Name: Mitzi Fonseca Department: 113 Room: 3B14 Gender: District Director: ISIDRA : [id number] Requested By: [id number] Order Number: [id number] Reading MD: Paz Gaspar Measurements Intervals [place] Rate: 75 P: 44 OK: 160 QRS: -1 QRSD: 125 T: 29 QT: 467 QTc: 495 Interpretive Statements SINUS RHYTHM RIGHT BUNDLE BRANCH BLOCK Electronically Signed On 03-08-2018 16:21:59 EDT by Paz Gaspar
--- NOTE | 2018-03-08 17:21 | Internal Med Progress Note ---
Date of Encounter: 03/08/18 Time of Encounter: 17:18 - Assessment and plan (1) Urinary tract infection Current Visit: Yes Status: Acute Assessment and plan: She has history of for UTI and was recently hospitalized, urine culture from previous admission showed multidrug resistant organism but sensitive to Bactrim and a fluoroquinolone. Patient already started on IV Bactrim. ID consulted and appreciate his input, recommended to continue Bactrim for total course of 14 days. Plan to change to oral antibiotics tomorrow and a discharge. Qualifiers: Urinary tract infection type: acute cystitis Hematuria presence: with hematuria Qualified Code(s): N30.01 - Acute cystitis with hematuria (2) Diabetes 1.5, managed as type 2 Current Visit: Yes Status: Chronic Assessment and plan: Hx of diabetes controlled by oral anti-hyperglycemic medications. Hold Glucophage and administer low-dose correction insulin sliding scale with hypoglycemic protocol. A1c 6.6. (3) COPD (chronic obstructive pulmonary disease) Current Visit: Yes Status: Chronic Assessment and plan: Hx of chronic COPD. Stable. Supplemental O2 w/titration and SpO2 monitoring. Qualifiers: COPD type: emphysema Emphysema type: unspecified Qualified Code(s): J43.9 - Emphysema, unspecified (4) Weakness Current Visit: Yes Status: Acute (5) Constipation Current Visit: Yes Status: Chronic Assessment and plan: Hx of chronic constipation. Pt. reports no BM since Wednesday. Will continue pts. Senna and add Colace 200 mg daily. Monitor I&O. Qualifiers: Constipation type: other constipation type Qualified Code(s): K59.09 - Other constipation (6) GERD (gastroesophageal reflux disease) Current Visit: Yes Status: Chronic Assessment and plan: Hx of chronic GERD. Continue pts. PO Prevacid. IVP Zofran 4 mg Q6HR PRN for N/ V. Qualifiers: Esophagitis presence: esophagitis presence not specified Qualified Code(s) : K21.9 - Gastro-esophageal reflux disease without esophagitis (7) Rheumatoid arthritis Current Visit: No Status: Chronic Assessment and plan: Hx of chronic RA. Will hold pts. Meloxicam d/t current renal dysfunction. Tylenol 650 mg Q6HR PRN for mild pain. Tramadol 50 mg TID PRN for moderate pain. Qualifiers: Rheumatoid arthritis location: multiple sites Rheumatoid factor presence: unspecified presence Qualified Code(s): M06.9 - Rheumatoid arthritis, unspecified (8) Thyroid disease Current Visit: No Status: Chronic Assessment and plan: Hx of chronic thyroid disease. TSH and Free T4 in a.m. labs. Pt. does not currently take Synthroid but reports taking in the past. (9) Anxiety and depression Current Visit: Yes Status: Chronic Assessment and plan: Hx of chronic anxiety and depression. Pt. reports that she just wants to go to sleep and not wake up. States that she is 87 years old and has anxiety about her health and health of her family. Pt. is clear that she has no suicidal ideations or feelings of self-harm. More feelings of despair and hopelessness. Continue pts. trazodone and Ativan. Monitor pt. for signs of increasing anxiety or depression. Will order sitter if needed. (10) DVT prophylaxis Current Visit: Yes Status: Acute (11) HLD (hyperlipidemia) Current Visit: Yes Status: Chronic Assessment and plan: Hx of chronic HLD. Continue patient's Lipitor. Qualifiers: Hyperlipidemia type: pure hypercholesterolemia Qualified Code(s): E78.00 - Pure hypercholesterolemia, unspecified; E78.0 - Pure hypercholesterolemia (12) Hopelessness Current Visit: Yes Status: Acute Assessment and plan: Acute on chronic feelings of hopelessness. ED notes state that pt. wants to resulting in pt. being pink-slipped. During admission assessment, I clarified with the patient that she is not having suicidal ideations or feelings of harming herself. Pt. states that she is tired of being sick and has high anxiety regarding her poor health as well as poor health of family members. Pt. states that she would just like to go to sleep and not wake up. Denies ever having thoughts of suicide. Will place sitter if anxiety or depression increases. - Time Spent With Patient Total time spent is greater than 50% in coordination of care (as documented) at patient's floor/unit and/or counseling patient: Greater than 35 minutes - Subjective Interval history: Patient seen and examined, she has no complaints at this time. - Constitutional Vitals: Temp Pulse Resp BP Pulse Ox 98.3 F 82 16 110/74 95 03/08/18 15:37 03/08/18 15:37 03/08/18 15:37 03/08/18 15:37 03/08/18 15:37 General appearance: Present: cooperative, mild distress (Anxiety), A&O X 3, pleasant, obese, answers questions appropriately Exam: PHYSICAL EXAMINATION: GENERAL APPEARANCE: The patient is alert, oriented and in no acute distress. HEENT: Head is normocephalic. The sinuses are nontender. Pupils are equal and reactive. The nares are patent. Oropharynx clear without lesions. NECK: Supple without lymphadenopathy. HEART: Regular rate and rhythm. LUNGS: No crackles or wheezes are heard. ABDOMEN: Soft, nontender, nondistended with good bowel sounds heard. Inguinal area is normal. EXTREMITIES: Without cyanosis, clubbing or edema. NEUROLOGICAL: Gross nonfocal. SKIN: Warm and dry without any rash. Internal Medicine: Result - Labs CBC & Chem 7: 03/08/18 05:23 03/08/18 05:23 Labs: Short CBC 03/08/18 Range/Units 05:23 WBC 7.5 (4.3-11.1) K/mcL Hgb 11.4 L (11.5-15.4) g/dL Hct 35.0 L (35.3-44.9) % Plt Count 157 (140-400) K/mcL Neutrophils # 5.1 (1.6-8.9) K/mcL BMP 03/08/18 05:23 Sodium 137 Potassium 4.2 Chloride 100 Carbon Dioxide 29 BUN 17 Creatinine 0.94 Glucose 136 H Calcium 8.9 Liver Function 03/08/18 Range/Units 05:23 Total Bilirubin 0.5 (0.3-1.0) mg/dL AST 15 (13-39) Units/L ALT 11 (7-52) Units/L Alkaline Phosphatase 64 (34-104) Units/L Albumin 3.9 (3.5-5.7) g/dL Consult Discharge Plan - Plan Referrals: Aldo Alvarenga MD [Primary Care Provider] - 03/23/18 2:45 pm
[2018-03-08] MEDS: traZODone 50 MG TABLET PO SCH (21:16)
[2018-03-09 06:26] LABS: Basophils % 0.4 %; Eosinophils # 0.3 K/mcL (0.0-0.6); Eosinophils % 2.9 %; Hematocrit 35.5 % (35.3-44.9); Hemoglobin 11.9 g/dL (11.5-15.4); Immature Granulocytes % 0.3 % (0-4); Lymphocytes # 2.2 K/mcL (0.6-4.6); Lymphocytes % 22.2 %; Mean Corpuscular HGB Conc 33.5 g/dL (31.6-35.5); Mean Corpuscular Hemoglobin 28.9 pg (28.0-33.3); Mean Corpuscular Volume 86.2 fL (83.0-100.0); Mean Platelet Volume 10.9 fL (9.4-12.4); Monocytes # 1.1 K/mcL (0.0-1.3); Monocytes % 11.3 %; Neutrophils # 6.2 K/mcL (1.6-8.9); Platelet Count 157 K/mcL (140-400); Red Blood Count 4.12 M/mcL (3.82-4.97); Red Cell Distribution Width 13.1 % (11.5-14.5); Segmented Neutrophils % 62.9 %
[2018-03-09 06:44] LABS: Albumin/Globulin Ratio 1.7 (1.1-2.2); Bilirubin,Total 0.3 mg/dL (0.3-1.0); Calcium 9.4 mg/dL (8.6-10.3); Globulin 2.4 g/dL (2.4-3.5); Potassium 3.9 mEq/L (3.5-5.1); Total Protein 6.4 g/dL (6.4-8.9)
[2018-03-09 07:32] VITALS: BP 155/76
[2018-03-09] MEDS: Lactobacillus 1 EACH CAP.SPRINK PO SCH (08:37)
[2018-03-09] MEDS: amLODIPine 5 MG TABLET PO SCH (08:37)
[2018-03-09] MEDS: Magnesium Oxide 400 MG TABLET PO SCH (08:37)
[2018-03-09] MEDS: Aspirin Enteric Coated 81 MG Tablet PO SCH (08:37)
[2018-03-09] MEDS: Sennosides/Docusate Sodium TABLET PO SCH (08:38)
[2018-03-09] MEDS: Insulin LISPRO 300 UNITS/3 ML VIAL SQ SCH ×2 (08:38→12:04)
[2018-03-09] MEDS: Sulfamethoxazole/Trimeth 10 ML in D5% in Water 500 ML IVPB SCH (08:38)
--- NOTE | 2018-03-09 09:43 | Discharge Summary ---
- NOTES TO OUTPATIENT PROVIDER Notes to Outpatient Provider: Recommend follow-up within one week for repeat BMP. 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 UA indicative of UTI. 03/02/18 Urine culture showed Klebsiella. Evaluated by infectious disease who recommended Bactrim; to complete a total course of 14 days. Qualifiers: Urinary tract infection type: acute cystitis Hematuria presence: with hematuria Qualified Code(s): N30.01 - Acute cystitis with hematuria (2) Weakness Priority: Primary Status: Acute Assessment and Plan: secondary to current and re-current UTIs. Evaluated by PT/OT who recommended SNF at discharge however patient refused. Discharge home with C. (3) Diabetes 1.5, managed as type 2 Priority: Secondary Status: Chronic Assessment and Plan: per hx. Hgb A1c 6.6%. Continue home diabetes medication regimen. (4) COPD (chronic obstructive pulmonary disease) Priority: Secondary Status: Chronic Assessment and Plan: per hx. No evidence of exacerbation. Qualifiers: COPD type: emphysema Emphysema type: unspecified Qualified Code(s): J43.9 - Emphysema, unspecified (5) Constipation Priority: Secondary Status: Chronic Assessment and Plan: hx chronic constipation. Cont MiraLAX at discharge. Qualifiers: Constipation type: other constipation type Qualified Code(s): K59.09 - Other constipation (6) GERD (gastroesophageal reflux disease) Priority: Secondary Status: Chronic Assessment and Plan: Hx of chronic GERD. Continue prevacid Qualifiers: Esophagitis presence: esophagitis presence not specified Qualified Code(s) : K21.9 - Gastro-esophageal reflux disease without esophagitis (7) Rheumatoid arthritis Priority: Secondary Status: Chronic Assessment and Plan: Hx of chronic RA. Hold home meloxicam while she is on Bactrim for UTI. Defer resuming meloxicam to PCP. Qualifiers: Rheumatoid arthritis location: multiple sites Rheumatoid factor presence: unspecified presence Qualified Code(s): M06.9 - Rheumatoid arthritis, unspecified (8) Thyroid disease Priority: Secondary Status: Chronic Assessment and Plan: Hx of chronic thyroid disease. Not on levothyroxine. TSH normal. Free T4 0.9. Recommend follow-up with PCP outpatient. (9) Anxiety and depression Priority: Secondary Status: Chronic Assessment and Plan: Hx of chronic anxiety and depression. Per previous documentation, patient reported that she just wants to go to sleep and not wake up; stated that she is 87 years old and has anxiety about her health and health of her family. Denied SI/HI on 03/09/18 exam. (10) HLD (hyperlipidemia) Priority: Secondary Status: Chronic Assessment and Plan: Hx of chronic HLD. Continue patient's Lipitor. Qualifiers: Hyperlipidemia type: pure hypercholesterolemia Qualified Code(s): E78.00 - Pure hypercholesterolemia, unspecified; E78.0 - Pure hypercholesterolemia (11) Hopelessness Priority: Primary Status: Acute Assessment and Plan: plan as noted above Hospital course: See assessment and plan for hospital course Discharge discussed with: patient (Seen and examined at bedside; patient is new to me. Information obtained from chart review and patient report. Says she is weak and tired but overall improved. Discussed with her discharge plans to home versus SNF per therapy recommendations and patient is adamantly refusing SNF. Says she will be over take care of herself at home with however . I strongly encouraged her to reconsider however she is adamantly refusing. Stress case with infectious disease and will discharge home on Bactrim.) - Time Spent with Patient Total time spent providing and/or coordinating discharge services: - Discharge Medications Prescriptions: Polyethylene Glycol 3350 [MiraLAX] 17 gm PO DAILY #30 powd.pack Sulfamethoxazole/Trimeth DS [Bactrim DS] 1 each PO BID 12 Days #24 tablet Home Medications: Aspirin Enteric Coated [Aspirin EC] 81 mg PO DAILY 12/31/16 [History] Calcium Crb,Cit/D3/Min34/Antonio [Citracal + Bone Density Tablet] 1 each PO DAILY 12/31/16 [History] Ergocalciferol (VITAMIN D2) [Vitamin D2] 50,000 unit PO QWEEK 12/31/16 [History] Gluc Quan/Chondro Quan A/Vit C/Mn [Glucosamine Chondroitin Tab] 1 each PO DAILY [History] Lansoprazole [Prevacid] 30 mg PO DAILY 12/31/16 [History] Metformin HCl [Glucophage] 1,000 mg PO BID 12/31/16 [History] Oxygen 2 l NS HS 12/31/16 [History] Triamterene/HCTZ 37.5/25mg [Dyazide] 1 tab PO DAILY 12/31/16 [History] amLODIPine [Norvasc] 5 mg PO DAILY 12/31/16 [History] Oxybutynin [Ditropan] 5 mg PO BID 11/11/17 [History] Trazodone HCl 150 mg PO HS 11/15/17 [History] Atorvastatin [Lipitor] 40 mg PO HS tablet 11/16/17 [Rx] LORazepam [Ativan] 0.5 mg PO TID 5 Days #15 tablet 11/16/17 [Rx] Sennosides/Docusate Sodium [Senna Plus] 2 each PO BID tablet 11/16/17 [Rx] Magnesium Oxide [Magnesium] 400 mg PO DAILY 03/07/18 [History] Polyethylene Glycol 3350 [MiraLAX] 17 gm PO DAILY #30 powd.pack 03/09/18 [Rx] Sulfamethoxazole/Trimeth DS [Bactrim DS] 1 each PO BID 12 Days #24 tablet [Rx] Allergies/Adverse Reactions: 3 Allergy/AdvReac Type Severity Reaction Status Date / Time bacitracin Allergy Blister Verified 07/23/15 16:34 [From Neosporin ([id number])] brompheniramine Allergy See Verified 07/23/15 16:34 [From Drixoral] Comments codeine Allergy Rash Verified 07/23/15 16:34 Cyclobenzaprine Allergy Fatigued Verified 07/23/15 16:34 [From Flexeril] dexbrompheniramine Allergy See Verified 07/23/15 16:34 [From Drixoral] Comments Erythromycin Base Allergy Rash Verified 07/23/15 16:34 [From Erythrocin] Neomycin Allergy Blister Verified 07/23/15 16:34 [From Neosporin ([id number])] Penicillins [PCN] Allergy Rash Verified 07/23/15 16:34 polymyxin B Allergy Blister Verified 07/23/15 16:34 [From Neosporin ([id number])] pseudoephedrine Allergy See Verified 07/23/15 16:34 [From Drixoral] Comments trospium Allergy Swelling Verified 07/23/15 16:34 of Lip/Tongue/Throat Date of admission: 03/07/18 18:15 Primary care physician: Aldo Alvarenga MD Discharging clinician: Susy Savage Anticipated date of discharge: 03/09/18 - Constitutional Vitals: Temp Pulse Resp BP Pulse Ox 98.6 F 95 14 155/76 91 03/09/18 07:25 03/09/18 07:25 03/09/18 07:25 03/09/18 07:25 03/09/18 08:38 General appearance: Present: cooperative, A&O X 3, pleasant, obese, answers questions appropriately - Head Head exam: Present: atraumatic, normocephalic - Eye Eye exam: Present: PERRL, conjuntiva pink, sclera anicteric Pupils: Present: PERRL - Neck Neck exam general surgery: Present: supple, trachea midline. Absent: lymphadenopathy - Respiratory Respiratory exam: Present: CTAB. Absent: accessory muscle use, rales, rhonchi, wheezes - Cardiovascular Cardiovascular exam: Present: RRR, +S1, +S2. Absent: diastolic murmur, gallop, rubs, systolic murmur - GI/Abdominal GI/Abdominal exam: Present: normal bowel sounds, soft, no peritoneal signs. Absent: distended, tenderness - Extremities Exam Extremities exam: Present: warm, radial pulses palpable and symmetrical. Absent : calf tenderness, cyanotic, pedal edema - Neurological Exam Neurological exam: Present: CN II-XII intact, oriented X3, no focal deficits. Absent: pronater drift, facial droop, speech deficit - Skin Skin exam: Present: dry, intact - Patient Status Disposition: Home Health Service Condition: Good Functional capacity at discharge: uses cane/walker Overall status at discharge: patient is back to baseline - Discharge Instructions Instructions: Sulfamethoxazole/Trimethoprim (By mouth), Urinary Tract Infection in Women (GEN), Alexandra Catheter Placement and Care (DC), Fall Prevention for Older Adults (GEN), Chronic Urinary Retention in Women (DC) Follow Up With: Aldo Alvarenga MD [Primary Care Provider] - 03/17/18 11:00 am - Diet and Activity Activity: as per physical therapy Diet: diabetic diet
--- NOTE | 2018-03-09 10:06 | Physician Discharge Referral ---
Home Health/Hosp Referral Info Transfer to: Home Health Attending Provider: Susy Savage CNP Provider in Charge Post Discharge: PCP - Diagnosis (1) Urinary tract infection Status: Acute (2) Weakness Status: Acute (3) Diabetes 1.5, managed as type 2 Status: Chronic (4) COPD (chronic obstructive pulmonary disease) Status: Chronic (5) Constipation Status: Chronic (6) GERD (gastroesophageal reflux disease) Status: Chronic (7) Rheumatoid arthritis Status: Chronic (8) Thyroid disease Status: Chronic (9) Anxiety and depression Status: Chronic (10) HLD (hyperlipidemia) Status: Chronic (11) Hopelessness Status: Acute - Respiratory Orders None Smoking Cessation: Smoking cessation has been advised. For more information, call the [place] Tobacco Quit Line at 2-853-LMEM-NOW. - Diet/Nutrition Diet/Nutrition Orders: No Concentrated Sweets - Activity Activity Orders: Ambulate, Walker - Services Needed Following services are medically necessary services: Nursing (Recommend repeat BMP within one week to monitor renal function; results to be faxed to primary care physician), Home Health Aide, Physical Therapy, Occupational Therapy - Transfer Medications Prescriptions: Polyethylene Glycol 3350 [MiraLAX] 17 gm PO DAILY #30 powd.pack Sulfamethoxazole/Trimeth DS [Bactrim DS] 1 each PO BID 12 Days #24 tablet Home Medications: Aspirin Enteric Coated [Aspirin EC] 81 mg PO DAILY 12/31/16 [History] Calcium Crb,Cit/D3/Min34/Antonio [Citracal + Bone Density Tablet] 1 each PO DAILY 12/31/16 [History] Ergocalciferol (VITAMIN D2) [Vitamin D2] 50,000 unit PO QWEEK 12/31/16 [History] Gluc Quan/Chondro Quan A/Vit C/Mn [Glucosamine Chondroitin Tab] 1 each PO DAILY [History] Lansoprazole [Prevacid] 30 mg PO DAILY 12/31/16 [History] Metformin HCl [Glucophage] 1,000 mg PO BID 12/31/16 [History] Oxygen 2 l NS HS 12/31/16 [History] Triamterene/HCTZ 37.5/25mg [Dyazide] 1 tab PO DAILY 12/31/16 [History] amLODIPine [Norvasc] 5 mg PO DAILY 12/31/16 [History] Oxybutynin [Ditropan] 5 mg PO BID 11/11/17 [History] Trazodone HCl 150 mg PO HS 11/15/17 [History] Atorvastatin [Lipitor] 40 mg PO HS tablet 11/16/17 [Rx] LORazepam [Ativan] 0.5 mg PO TID 5 Days #15 tablet 11/16/17 [Rx] Sennosides/Docusate Sodium [Senna Plus] 2 each PO BID tablet 11/16/17 [Rx] Magnesium Oxide [Magnesium] 400 mg PO DAILY 03/07/18 [History] Polyethylene Glycol 3350 [MiraLAX] 17 gm PO DAILY #30 powd.pack 03/09/18 [Rx] Sulfamethoxazole/Trimeth DS [Bactrim DS] 1 each PO BID 12 Days #24 tablet [Rx] Allergies/Adverse Reactions: 3 Allergy/AdvReac Type Severity Reaction Status Date / Time bacitracin Allergy Blister Verified 07/23/15 16:34 [From Neosporin ([id number])] brompheniramine Allergy See Verified 07/23/15 16:34 [From Drixoral] Comments codeine Allergy Rash Verified 07/23/15 16:34 Cyclobenzaprine Allergy Fatigued Verified 07/23/15 16:34 [From Flexeril] dexbrompheniramine Allergy See Verified 07/23/15 16:34 [From Drixoral] Comments Erythromycin Base Allergy Rash Verified 07/23/15 16:34 [From Erythrocin] Neomycin Allergy Blister Verified 07/23/15 16:34 [From Neosporin ([id number])] Penicillins [PCN] Allergy Rash Verified 07/23/15 16:34 polymyxin B Allergy Blister Verified 07/23/15 16:34 [From Neosporin ([id number])] pseudoephedrine Allergy See Verified 07/23/15 16:34 [From Drixoral] Comments trospium Allergy Swelling Verified 07/23/15 16:34 of Lip/Tongue/Throat Certification: Further, I certify that my clinical findings support that this patient is homebound (i.e. absences from home require considerable and taxing effort and are for medical reasons or anabaptist services or infrequently or short duration when for other reasons) because: Homebound Reason: Patient requires assistance of a person or device to safely leave home Attestation: My signature below is to certify that this patient is under my care and that I, or nurse practitioner, or a physician's producer assistant working with me, has a face-to -face encounter with this patient.
== END 2018-03-09 15:03 | disposition home health service (06) | DRG 690 ==
LOC: 3BNU 12:31 → EMEROO 12:31 → 3BNU 17:14
PROVIDERS: ADMIT Hospitalist; ATTEND Hospitalist

== ENCOUNTER 2018-05-03 09:23 | Inpatient (IN) ==
[2018-05-03 09:56] LABS: Basophils % 0.2 %; Eosinophils % 0.2 %; Hematocrit 39.8 % (35.3-44.9); Hemoglobin 13.6 g/dL (11.5-15.4); Immature Granulocytes % 1.8 % (0-4); Lymphocytes # 2.6 K/mcL (0.6-4.6); Mean Corpuscular HGB Conc 34.2 g/dL (31.6-35.5); Mean Corpuscular Hemoglobin 28.7 pg (28.0-33.3); Mean Platelet Volume 10.3 fL (9.4-12.4); Monocytes # 1.5 K/mcL (0.0-1.3); Monocytes % 8.7 %; Neutrophils # 12.8 K/mcL (1.6-8.9); Platelet Count 169 K/mcL (140-400); Red Blood Count 4.74 M/mcL (3.82-4.97); Red Cell Distribution Width 13.1 % (11.5-14.5); Segmented Neutrophils % 74.1 %
[2018-05-03] MEDS ORDERED: *HR* HYDROcodone/Acet 5/325 mg TABLET PO ONE ×2 (10:02→12:08)
[2018-05-03] MEDS ORDERED: Ondansetron 4 MG/2 ML VIAL IVP ONE (10:02)
[2018-05-03] MEDS ORDERED: Aspirin 325 MG TABLET PO ONE (10:02)
[2018-05-03 10:14] LABS: Bilirubin,Urine Negative (Negative); Blood,Urine Small (Negative); Clarity,Urine Turbid (Clear); Color,Urine Yellow (Yellow); Glucose,Urine (UA) Normal (Normal); Ketones,Urine Negative (Negative); Leukocyte Esterase,Urine Large (Negative); Nitrite,Urine Positive (Negative); PH,Urine 7.5 pH Units (5.0-8.0); Protein,Urine 100 mg/dL (Neg-Trace); Specific Gravity,Urine 1.016 (1.010-1.025); Urobilinogen,Urine Normal (Normal)
[2018-05-03 10:17] LABS: Squamous Epithelial Cell,Urine Few per lpf (None-Few); WBC,Urine TNTC per hpf (0-3)
[2018-05-03 10:21] LABS: Troponin I < 0.03 ng/mL (< 0.04)
[2018-05-03 10:25] LABS: Alanine Aminotransferase 20 Units/L (7-52); Albumin 3.9 g/dL (3.5-5.7); Albumin/Globulin Ratio 1.5 (1.1-2.2); Alkaline Phosphatase 84 Units/L (34-104); Aspartate Amino Transferase 10 Units/L (13-39); BUN/Creatinine Ratio 21 (6-26); Bilirubin,Direct 0.2 mg/dL (0.0-0.2); Bilirubin,Indirect 1.2 mg/dL (0.0-1.2); Bilirubin,Total 1.4 mg/dL (0.3-1.0); Blood Urea Nitrogen 18 mg/dL (8-23); Calcium 9.7 mg/dL (8.6-10.3); Carbon Dioxide 28 mEq/L (23-29); Chloride 94 mEq/L (98-107); Globulin 2.6 g/dL (2.4-3.5); Glucose 285 mg/dL (70-105); Osmolality,Calculated 288 (280-300); Potassium 3.7 mEq/L (3.5-5.1); Sodium 133 mEq/L (136-145); Total Protein 6.5 g/dL (6.4-8.9); eGFR For Non-African Americans > 60 (> 60)
[2018-05-03 10:33] LABS: Yeast,Urine Many per hpf (None Seen)
[2018-05-03 10:34] LABS: Bacteria,Urine Moderate per hpf (None-Few)
[2018-05-03] MEDS ORDERED: 0.9 % Sodium Chloride 1,000 ML IVC ONE (11:02)
--- NOTE | 2018-05-03 11:11 | Emergency Department Note ---
Disposition Clinical Impression: Hyperbilirubinemia UTI (urinary tract infection) Qualifiers: Urinary tract infection type: site unspecified Hematuria presence: without hematuria Qualified Code(s): N39.0 - Urinary tract infection, site not specified Shoulder pain Qualifiers: Chronicity: acute Laterality: left Qualified Code(s): M25.512 - Pain in left shoulder Right ankle pain Qualifiers: Chronicity: acute Qualified Code(s): M25.571 - Pain in right ankle and joints of right foot Disposition: Admitted As Inpatient Condition: Fair Referrals: Aldo Alvarenga MD [Primary Care Provider] - Altered Mental Status HPI - General Chief Complaint: ED Altered Mental Status Stated Complaint: UTI Time Seen by Provider: 05/03/18 09:31 Source: patient, family, EMS Mode of arrival: EMS Limitations: no limitations Nursing Notes Reviewed: Yes Vital Signs Reviewed: Yes - History of Present Illness complaint: altered mental status, other (left shoulder and right ankle pain) Onset (ago): day(s) (2) Timing confirmed by: spouse Pain Severity: moderate Pain Scale: 6 Consistency of Symptoms: constant Context: history of similar presentation Associated symptoms: Denies: chest pain, cough, diaphoresis, fever, chills, headaches, loss of appetite, malaise, nausea/vomiting, rash, seizure, shortness of breath, syncope, weakness, difficulty walking, diarrhea, incontinence, other Treatments prior to arrival: other (none) - Related Data Home Medications Medication Instructions Recorded Confirmed Aspirin Enteric Coated [Aspirin EC] 81 mg PO DAILY 12/31/16 03/07/18 Calcium Crb,Cit/D3/Min34/Antonio 1 each PO DAILY 12/31/16 03/07/18 [Citracal + Bone Density Tablet] Ergocalciferol (VITAMIN D2) 50,000 unit PO QWEEK 12/31/16 03/07/18 [Vitamin D2] Gluc Quan/Chondro Quan A/Vit C/Mn 1 each PO DAILY 12/31/16 03/07/18 [Glucosamine Chondroitin Tab] Lansoprazole [Prevacid] 30 mg PO DAILY 12/31/16 03/07/18 Metformin HCl [Glucophage] 1,000 mg PO BID 12/31/16 03/07/18 Triamterene/HCTZ 37.5/25mg 1 tab PO DAILY 12/31/16 03/07/18 [Dyazide] amLODIPine [Norvasc] 5 mg PO DAILY 12/31/16 03/07/18 Oxybutynin [Ditropan] 5 mg PO BID 11/11/17 03/07/18 Trazodone HCl 150 mg PO HS 11/15/17 03/07/18 Magnesium Oxide [Magnesium] 400 mg PO DAILY 03/07/18 03/07/18 Escitalopram [Lexapro] 30 mg PO DAILY 05/03/18 05/03/18 HYDROcodone/Acet 5/325 mg [[place] 1 tab PO BID PRN 05/03/18 05/03/18 5-325 mg] predniSONE [PredniSONE] 20 mg PO BID 05/03/18 05/03/18 Previous Rx's Medication Instructions Recorded LORazepam [Ativan] 0.5 mg PO TID 5 Days #15 tablet 11/16/17 Allergies Allergy/AdvReac Type Severity Reaction Status Date / Time bacitracin Allergy Blister Verified 07/23/15 16:34 [From Neosporin ([id number])] brompheniramine Allergy See Verified 07/23/15 16:34 [From Drixoral] Comments ciprofloxacin [From Cipro] Allergy See Verified 05/03/18 12:34 Comments codeine Allergy Rash Verified 07/23/15 16:34 Cyclobenzaprine Allergy Fatigued Verified 07/23/15 16:34 [From Flexeril] dexbrompheniramine Allergy See Verified 07/23/15 16:34 [From Drixoral] Comments Erythromycin Base Allergy Rash Verified 07/23/15 16:34 [From Erythrocin] Neomycin Allergy Blister Verified 07/23/15 16:34 [From Neosporin ([id number])] Penicillins [PCN] Allergy Rash Verified 07/23/15 16:34 polymyxin B Allergy Blister Verified 07/23/15 16:34 [From Neosporin ([id number])] pseudoephedrine Allergy See Verified 07/23/15 16:34 [From Drixoral] Comments trospium Allergy Swelling Verified 07/23/15 16:34 of Lip/Tongue/Throat mirtazapine [From Remeron] AdvReac Shakiness Verified 05/03/18 12:34 prednisone AdvReac Anxiety Verified 05/03/18 12:34 rosuvastatin [From Crestor] AdvReac Muscle Pain Verified 05/03/18 12:34 All systems ED: reviewed and negative except as stated. Review of Systems: As Per HPI Constitutional: Denies: fever, chills, weakness Eyes: Denies: vision change Cardiovascular: Denies: chest pain, palpitations Respiratory: Denies: dyspnea Gastrointestinal: Denies: abdominal pain, nausea, vomiting Genitourinary: Reports: hematuria (last week ), other (Smith changed last week. Chronic indwelling for years. Sees Dr. Forde). Denies: urgency, dysuria, frequency Musculoskeletal: Reports: arthralgia (left shoulder, right ankle). Denies: back pain, neck pain, joint swelling Integumentary: Denies: rash, abrasion, lesions Neurological: Denies: headache, weakness, numbness, paresthesias, confusion, abnormal gait, vertigo Endocrine: Denies: fatigue Hematological/Lymphatic: Denies: easy bleeding, easy bruising, lymphadenopathy Past Medical History - Past Medical History Attestation: Yes The following information was validated with the patient. 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 Absent: scleral icterus, conjunctival injection, periorbital swelling - ENT ENT exam: mucous membranes moist - Neck Neck exam: Present: normal inspection, full ROM, trachea midline. Absent: tenderness, meningismus - Chest Chest inspection: Present: normal inspection - Respiratory Respiratory exam: Present: normal lung sounds bilaterally. Absent: respiratory distress - Cardiovascular Cardiovascular exam: Present: regular rate, normal rhythm - Extremities Exam Extremities exam: Present: normal inspection, normal capillary refill, joint swelling (mild, right ankle - medial and lateral. No other joint edema). Absent : tenderness, pedal edema, calf tenderness - Expanded Lower Extremity Exam Neurovascular/Tendon exam: Present: normal capillary refill, normal fine/light touch. Absent: pulse deficit, motor deficit, sensory deficit, tendon deficit, extremity cold to touch, pallor, foot drop, significant pain with passive ROM of distal joint Gait: not tested/not observed - Back Exam Back exam: Present: normal inspection. Absent: CVA tenderness (R), CVA tenderness (L) - Neurological Exam Neurological exam: Present: alert, oriented X3, CN II-XII intact. Absent: motor sensory deficit - Psychiatric Psychiatric exam: Present: normal affect, normal mood - Skin Skin exam: Present: warm, dry, intact, normal color Course Vital Signs Temperature 98.3 F 05/03/18 09:25 Pulse Rate 94 05/03/18 09:25 Respiratory Rate 18 05/03/18 09:25 Blood Pressure 137/96 05/03/18 09:25 O2 Sat by Pulse Oximetry 100 05/03/18 09:25 Temperature 98.3 F 05/03/18 09:25 Pulse Rate 94 05/03/18 09:25 Respiratory Rate 18 05/03/18 09:25 Blood Pressure 137/96 05/03/18 09:25 O2 Sat by Pulse Oximetry 100 05/03/18 09:25 Oxygen Delivery Oxygen Delivery Room Air Altered Mental Status - Medical Records Medical records reviewed: Yes I reviewed the patient's medical records. - Lab Data Lab results reviewed: Yes I reviewed the patient's lab results. Lab results narrative: Laboratory Last Values WBC 17.3 K/mcL (4.3-11.1) H 05/03/18 09:45 RBC 4.74 M/mcL (3.82-4.97) 05/03/18 09:45 Hgb 13.6 g/dL (11.5-15.4) 05/03/18 09:45 Hct 39.8 % (35.3-44.9) 05/03/18 09:45 MCV 84.0 fL (83.0-100.0) 05/03/18 09:45 MCH 28.7 pg (28.0-33.3) 05/03/18 09:45 MCHC 34.2 g/dL (31.6-35.5) 05/03/18 09:45 RDW 13.1 % (11.5-14.5) 05/03/18 09:45 Plt Count 169 K/mcL (140-400) 05/03/18 09:45 MPV 10.3 fL (9.4-12.4) 05/03/18 09:45 Immature Gran % 1.8 % (0-4) 05/03/18 09:45 Seg Neutrophils % 74.1 % 05/03/18 09:45 Lymphocytes % 15.0 % 05/03/18 09:45 Monocytes % 8.7 % 05/03/18 09:45 Eosinophils % 0.2 % 05/03/18 09:45 Basophils % 0.2 % 05/03/18 09:45 Neutrophils # 12.8 K/mcL (1.6-8.9) H 05/03/18 09:45 Lymphocytes # 2.6 K/mcL (0.6-4.6) 05/03/18 09:45 Monocytes # 1.5 K/mcL (0.0-1.3) H 05/03/18 09:45 Eosinophils # 0.0 K/mcL (0.0-0.6) 05/03/18 09:45 Basophils # 0.0 K/mcL (0.0-0.2) 05/03/18 09:45 Sodium 133 mEq/L (136-145) L 05/03/18 09:45 Potassium 3.7 mEq/L (3.5-5.1) 05/03/18 09:45 Chloride 94 mEq/L (98-107) L 05/03/18 09:45 Carbon Dioxide 28 mEq/L (23-29) 05/03/18 09:45 BUN 18 mg/dL (8-23) 05/03/18 09:45 Creatinine 0.87 mg/dL (0.60-1.20) 05/03/18 09:45 Est GFR ( Amer) > 60 (> 60) 05/03/18 09:45 Est GFR (Non-Af Amer) > 60 (> 60) 05/03/18 09:45 BUN/Creatinine Ratio 21 (6-26) 05/03/18 09:45 Glucose 285 mg/dL (70-105) H 05/03/18 09:45 Calculated Osmolality 288 (280-300) 05/03/18 09:45 Lactic Acid 1.5 mmol/L (0.5-2.2) 05/03/18 11:29 Calcium 9.7 mg/dL (8.6-10.3) 05/03/18 09:45 Total Bilirubin 1.6 mg/dL (0.3-1.0) H 05/03/18 11:29 Direct Bilirubin 0.3 mg/dL (0.0-0.2) H 05/03/18 11:29 Indirect Bilirubin 1.3 mg/dL (0.0-1.2) H 05/03/18 11:29 AST 10 Units/L (13-39) L 05/03/18 09:45 ALT 20 Units/L (7-52) 05/03/18 09:45 Alkaline Phosphatase 84 Units/L (34-104) 05/03/18 09:45 Troponin I < 0.03 ng/mL (< 0.04) 05/03/18 09:45 Serum Total Protein 6.5 g/dL (6.4-8.9) 05/03/18 09:45 Albumin 3.9 g/dL (3.5-5.7) 05/03/18 09:45 Globulin 2.6 g/dL (2.4-3.5) 05/03/18 09:45 Albumin/Globulin Ratio 1.5 (1.1-2.2) 05/03/18 09:45 TSH 2.240 mcIU/mL (0.340-5.600) 05/03/18 09:45 Urine Color Yellow (Yellow) 05/03/18 10:04 Urine Clarity Turbid (Clear) A 05/03/18 10:04 Urine pH 7.5 pH Units (5.0-8.0) 05/03/18 10:04 Ur Specific [place] 1.016 (1.010-1.025) 05/03/18 10:04 Urine Protein 100 mg/dL (Neg-Trace) H 05/03/18 10:04 Urine Glucose (UA) Normal mg/dL (Normal) 05/03/18 10:04 Urine Ketones Negative mg/dL (Negative) 05/03/18 10:04 Urine Blood Small (Negative) H 05/03/18 10:04 Urine Nitrite Positive (Negative) A 05/03/18 10:04 Urine Bilirubin Negative (Negative) 05/03/18 10:04 Urine Urobilinogen Normal mg/dL (Normal) 05/03/18 10:04 Ur Leukocyte Esterase Large (Negative) H 05/03/18 10:04 Urine Microscopic RBC 3-5 per hpf (0-3) H 05/03/18 10:04 Urine Microscopic WBC TNTC per hpf (0-3) H 05/03/18 10:04 Ur Squamous Epith Cells Few per lpf (None-Few) 05/03/18 10:04 Urine Bacteria Moderate per hpf (None-Few) H 05/03/18 10:04 Urine Yeast Many per hpf (None Seen) H 05/03/18 10:04 Ur Culture Indicated? YES (NO) A 05/03/18 10:04 Result diagrams: 05/03/18 09:45 05/03/18 09:45 Lab Results 05/03/18 05/03/18 05/03/18 Range/Units 09:45 09:45 10:04 WBC 17.3 H (4.3-11.1) K/mcL RBC 4.74 (3.82-4.97) M/mcL Hgb 13.6 (11.5-15.4) g/dL Hct 39.8 (35.3-44.9) % MCV 84.0 (83.0-100.0) fL MCH 28.7 (28.0-33.3) pg MCHC 34.2 (31.6-35.5) g/dL RDW 13.1 (11.5-14.5) % Plt Count 169 (140-400) K/mcL MPV 10.3 (9.4-12.4) fL Immature Gran % 1.8 (0-4) % Seg Neutrophils % 74.1 % Lymphocytes % 15.0 % Monocytes % 8.7 % Eosinophils % 0.2 % Basophils % 0.2 % Neutrophils # 12.8 H (1.6-8.9) K/mcL Lymphocytes # 2.6 (0.6-4.6) K/mcL Monocytes # 1.5 H (0.0-1.3) K/mcL Eosinophils # 0.0 (0.0-0.6) K/mcL Basophils # 0.0 (0.0-0.2) K/mcL Sodium 133 L (136-145) mEq/L Potassium 3.7 (3.5-5.1) mEq/L Chloride 94 L (98-107) mEq/L Carbon Dioxide 28 (23-29) mEq/L BUN 18 (8-23) mg/dL Creatinine 0.87 (0.60-1.20) mg/dL Est GFR ( Amer) > 60 (> 60) Est GFR (Non-Af Amer) > 60 (> 60) BUN/Creatinine Ratio 21 (6-26) Glucose 285 H (70-105) mg/dL Calculated Osmolality 288 (280-300) Calcium 9.7 (8.6-10.3) mg/dL Total Bilirubin 1.4 H (0.3-1.0) mg/dL Direct Bilirubin 0.2 (0.0-0.2) mg/dL Indirect Bilirubin 1.2 (0.0-1.2) mg/dL AST 10 L (13-39) Units/L ALT 20 (7-52) Units/L Alkaline Phosphatase 84 (34-104) Units/L Troponin I < 0.03 (< 0.04) ng/mL Serum Total Protein 6.5 (6.4-8.9) g/dL Albumin 3.9 (3.5-5.7) g/dL Globulin 2.6 (2.4-3.5) g/dL Albumin/Globulin Ratio 1.5 (1.1-2.2) TSH 2.240 (0.340-5.600) mcIU/mL Urine Color Yellow (Yellow) Urine Clarity Turbid A (Clear) Urine pH 7.5 (5.0-8.0) pH Units Ur Specific [place] 1.016 (1.010-1.025) Urine Protein 100 H (Neg-Trace) mg/dL Urine Glucose (UA) Normal (Normal) mg/dL Urine Ketones Negative (Negative) mg/dL Urine Blood Small H (Negative) Urine Nitrite Positive A (Negative) Urine Bilirubin Negative (Negative) Urine Urobilinogen Normal (Normal) mg/dL Ur Leukocyte Esterase Large H (Negative) Urine Microscopic RBC 3-5 H (0-3) per hpf Urine Microscopic WBC TNTC H (0-3) per hpf Ur Squamous Epith Cells Few (None-Few) per lpf Urine Bacteria Moderate H (None-Few) per hpf Urine Yeast Many H (None Seen) per hpf Ur Culture Indicated? YES A (NO) - Radiology Data Radiology results reviewed: Yes I reviewed the patient's radiology results. Chest X-Ray 05/03/18 09:36 IMPRESSION: 1. No active pulmonary disease. D/ / Terrell Jonas MD / Terrell Jonas MD Interpreting Provider: Terrell Jonas MD Abdomen/Pelvis CT 05/03/18 11:02 IMPRESSION: Normal exam. COMPARISON: None. 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 Heart is normal in size. No pericardial effusion. Organs: Liver, gallbladder, pancreas, spleen, bilateral adrenal glands are unremarkable. GI/Bowel: Stomach, small and large bowel loops are grossly unremarkable. Pelvis: Balloon of Smith catheter in the urinary bladder. Small amount of gas in the bladder related to the presence of Smith catheter. The bladder is decompressed.. No lymphadenopathy. No soft tissue masses or abnormal fluid collections. Uterus and bilateral ovaries are unremarkable. 2 subcentimeter calcified uterine fibroids. Peritoneum/Retroperitoneum: Punctate nonobstructive stone in the midpole of the right kidney. No hydronephrosis. 5 mm hyperdense exophytic mass in the lower pole of the right kidney, too small to be further characterized, may represent a hyperdense cyst. No abdominal aortic aneurysm. Calcified plaque in the wall of abdominal aorta and its branches. No retroperitoneal lymphadenopathy. Bones/Soft Tissues: No lytic or blastic lesions in all visualized osseous structures. Facet degenerative changes lead to grade 1 anterolisthesis of L5 on S1. IMPRESSION: 1. 5 mm hyperdense exophytic mass in the lower pole of the right kidney, too small to be further characterized, may represent a hyperdense cyst. This is too small to be reliably identified with renal ultrasound. Suggest follow-up with abdomen CT without contrast in 6 months. 2. Punctate nonobstructive stone in the midpole of the right kidney. No hydronephrosis. D/ / Marily Fernandez MD / Marily Fernandez MD Interpreting Provider: Marily Fernandez MD - EKG Data EKG attestation: Yes I reviewed and interpreted this EKG. EKG shows normal: sinus rhythm Rate: normal Rhythm: NSR ST segment depression in: v4, v5 When compared to previous EKG there are: no significant changes Interpretation: unchanged when compared to prior tracing (date), nonspecific ST- T wave changes TPA Checklist - LKW: 3-4.5 hrs Add. Warnings/Precautions Patient/family understanding: The patient/family members have been counseled and understood the risk, benefit , and alternatives of treatment.
[2018-05-03 12:18] LABS: Bilirubin,Direct 0.3 mg/dL (0.0-0.2); Bilirubin,Indirect 1.3 mg/dL (0.0-1.2); Bilirubin,Total 1.6 mg/dL (0.3-1.0)
[2018-05-03] MEDS: cefTRIAXone 1,000 MG in 0.9 % Sodium Chloride Mini Bag 100 ML IVPB ONE ×2 (12:54→13:20)
[2018-05-03] MEDS ORDERED: cefTRIAXone 2,000 MG in Water for inj. (sterile) 20 ML 20 ML IVP ONE (12:55)
--- NOTE | 2018-05-03 13:18 | Emergency Department Note ---
Disposition Clinical Impression: Hyperbilirubinemia UTI (urinary tract infection) Qualifiers: Urinary tract infection type: site unspecified Hematuria presence: without hematuria Qualified Code(s): N39.0 - Urinary tract infection, site not specified Shoulder pain Qualifiers: Chronicity: acute Laterality: left Qualified Code(s): M25.512 - Pain in left shoulder Right ankle pain Qualifiers: Chronicity: acute Qualified Code(s): M25.571 - Pain in right ankle and joints of right foot Disposition: Admitted As Inpatient Condition: Fair General Adult HPI - General Chief complaint: ED Altered Mental Status Stated complaint: UTI Time Seen by Provider: 05/03/18 09:31 Source: patient, family, EMS Mode of arrival: EMS Limitations: no limitations - History of Present Illness Pain Scale: 6 - Related Data Home Medications Medication Instructions Recorded Confirmed Aspirin Enteric Coated [Aspirin EC] 81 mg PO DAILY 12/31/16 05/03/18 Calcium Crb,Cit/D3/Min34/Antonio 1 each PO DAILY 12/31/16 05/03/18 [Citracal + Bone Density Tablet] Ergocalciferol (VITAMIN D2) 50,000 unit PO QWEEK 12/31/16 05/03/18 [Vitamin D2] Gluc Quan/Chondro Quan A/Vit C/Mn 1 each PO DAILY 12/31/16 05/03/18 [Glucosamine Chondroitin Tab] Lansoprazole [Prevacid] 30 mg PO DAILY 12/31/16 05/03/18 Metformin HCl [Glucophage] 1,000 mg PO BID 12/31/16 05/03/18 Triamterene/HCTZ 37.5/25mg 1 tab PO DAILY 12/31/16 05/03/18 [Dyazide] amLODIPine [Norvasc] 5 mg PO DAILY 12/31/16 05/03/18 Oxybutynin [Ditropan] 5 mg PO BID 11/11/17 05/03/18 Trazodone HCl 150 mg PO HS 11/15/17 05/03/18 Magnesium Oxide [Magnesium] 400 mg PO DAILY 03/07/18 05/03/18 Escitalopram [Lexapro] 30 mg PO DAILY 05/03/18 05/03/18 HYDROcodone/Acet 5/325 mg [[place] 1 tab PO BID PRN 05/03/18 05/03/18 5-325 mg] predniSONE [PredniSONE] 20 mg PO BID 05/03/18 05/03/18 Previous Rx's Medication Instructions Recorded LORazepam [Ativan] 0.5 mg PO TID 5 Days #15 tablet 11/16/17 Allergies Allergy/AdvReac Type Severity Reaction Status Date / Time bacitracin Allergy Blister Verified 07/23/15 16:34 [From Neosporin ([id number])] brompheniramine Allergy See Verified 07/23/15 16:34 [From Drixoral] Comments ciprofloxacin [From Cipro] Allergy See Verified 05/03/18 12:34 Comments codeine Allergy Rash Verified 07/23/15 16:34 Cyclobenzaprine Allergy Fatigued Verified 07/23/15 16:34 [From Flexeril] dexbrompheniramine Allergy See Verified 07/23/15 16:34 [From Drixoral] Comments Erythromycin Base Allergy Rash Verified 07/23/15 16:34 [From Erythrocin] Neomycin Allergy Blister Verified 07/23/15 16:34 [From Neosporin ([id number])] Penicillins [PCN] Allergy Rash Verified 07/23/15 16:34 polymyxin B Allergy Blister Verified 07/23/15 16:34 [From Neosporin ([id number])] pseudoephedrine Allergy See Verified 07/23/15 16:34 [From Drixoral] Comments trospium Allergy Swelling Verified 07/23/15 16:34 of Lip/Tongue/Throat mirtazapine [From Remeron] AdvReac Shakiness Verified 05/03/18 12:34 prednisone AdvReac Anxiety Verified 05/03/18 12:34 rosuvastatin [From Crestor] AdvReac Muscle Pain Verified 05/03/18 12:34 Constitutional: Denies: fever, chills, weakness Eyes: Denies: vision change Cardiovascular: Denies: chest pain, palpitations Respiratory: Denies: dyspnea Gastrointestinal: Denies: abdominal pain, nausea, vomiting Genitourinary: Reports: hematuria (last week ), other (Alexandra changed last week. Chronic indwelling for years. Sees Dr. Forde). 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 - Social History Smoking Status: Former smoker Smokeless Tobacco Status: No Alcohol use: Reports: none Drug use: Reports: none Physical Exam - General Limitations: no limitations General appearance: alert, in no apparent distress Course Vital Signs Temperature 98.3 F 05/03/18 09:25 Pulse Rate 94 05/03/18 09:25 Respiratory Rate 18 05/03/18 09:25 Blood Pressure 137/96 05/03/18 09:25 O2 Sat by Pulse Oximetry 100 05/03/18 09:25 Temperature 97.8 F 05/05/18 00:10 Pulse Rate 100 05/05/18 00:10 Respiratory Rate 16 05/05/18 00:10 Blood Pressure 107/72 05/05/18 00:10 O2 Sat by Pulse Oximetry 95 05/05/18 00:10 Oxygen Delivery Oxygen Delivery Room Air Medical Decision Making - Lab Data Result diagrams: 05/04/18 05:27 05/04/18 05:27 Lab Results 05/03/18 05/03/18 05/03/18 Range/Units 09:45 09:45 10:04 WBC 17.3 H (4.3-11.1) K/mcL RBC 4.74 (3.82-4.97) M/mcL Hgb 13.6 (11.5-15.4) g/dL Hct 39.8 (35.3-44.9) % MCV 84.0 (83.0-100.0) fL MCH 28.7 (28.0-33.3) pg MCHC 34.2 (31.6-35.5) g/dL RDW 13.1 (11.5-14.5) % Plt Count 169 (140-400) K/mcL MPV 10.3 (9.4-12.4) fL Immature Gran % 1.8 (0-4) % Seg Neutrophils % 74.1 % Lymphocytes % 15.0 % Monocytes % 8.7 % Eosinophils % 0.2 % Basophils % 0.2 % Neutrophils # 12.8 H (1.6-8.9) K/mcL Lymphocytes # 2.6 (0.6-4.6) K/mcL Monocytes # 1.5 H (0.0-1.3) K/mcL Eosinophils # 0.0 (0.0-0.6) K/mcL Basophils # 0.0 (0.0-0.2) K/mcL Sodium 133 L (136-145) mEq/L Potassium 3.7 (3.5-5.1) mEq/L Chloride 94 L (98-107) mEq/L Carbon Dioxide 28 (23-29) mEq/L BUN 18 (8-23) mg/dL Creatinine 0.87 (0.60-1.20) mg/dL Est GFR ( Amer) > 60 (> 60) Est GFR (Non-Af Amer) > 60 (> 60) BUN/Creatinine Ratio 21 (6-26) Glucose 285 H (70-105) mg/dL Calculated Osmolality 288 (280-300) Lactic Acid (0.5-2.2) mmol/L Calcium 9.7 (8.6-10.3) mg/dL Total Bilirubin 1.4 H (0.3-1.0) mg/dL Direct Bilirubin 0.2 (0.0-0.2) mg/dL Indirect Bilirubin 1.2 (0.0-1.2) mg/dL AST 10 L (13-39) Units/L ALT 20 (7-52) Units/L Alkaline Phosphatase 84 (34-104) Units/L Troponin I < 0.03 (< 0.04) ng/mL Serum Total Protein 6.5 (6.4-8.9) g/dL Albumin 3.9 (3.5-5.7) g/dL Globulin 2.6 (2.4-3.5) g/dL Albumin/Globulin Ratio 1.5 (1.1-2.2) TSH 2.240 (0.340-5.600) mcIU/mL Urine Color Yellow (Yellow) Urine Clarity Turbid A (Clear) Urine pH 7.5 (5.0-8.0) pH Units Ur Specific [place] 1.016 (1.010-1.025) Urine Protein 100 H (Neg-Trace) mg/dL Urine Glucose (UA) Normal (Normal) mg/dL Urine Ketones Negative (Negative) mg/dL Urine Blood Small H (Negative) Urine Nitrite Positive A (Negative) Urine Bilirubin Negative (Negative) Urine Urobilinogen Normal (Normal) mg/dL Ur Leukocyte Esterase Large H (Negative) Urine Microscopic RBC 3-5 H (0-3) per hpf Urine Microscopic WBC TNTC H (0-3) per hpf Ur Squamous Epith Cells Few (None-Few) per lpf Urine Bacteria Moderate H (None-Few) per hpf Urine Yeast Many H (None Seen) per hpf Ur Culture Indicated? YES A (NO) 05/03/18 05/03/18 Range/Units 11:29 11:29 WBC (4.3-11.1) K/mcL RBC (3.82-4.97) M/mcL Hgb (11.5-15.4) g/dL Hct (35.3-44.9) % MCV (83.0-100.0) fL MCH (28.0-33.3) pg MCHC (31.6-35.5) g/dL RDW (11.5-14.5) % Plt Count (140-400) K/mcL MPV (9.4-12.4) fL Immature Gran % (0-4) % Seg Neutrophils % % Lymphocytes % % Monocytes % % Eosinophils % % Basophils % % Neutrophils # (1.6-8.9) K/mcL Lymphocytes # (0.6-4.6) K/mcL Monocytes # (0.0-1.3) K/mcL Eosinophils # (0.0-0.6) K/mcL Basophils # (0.0-0.2) K/mcL Sodium (136-145) mEq/L Potassium (3.5-5.1) mEq/L Chloride (98-107) mEq/L Carbon Dioxide (23-29) mEq/L BUN (8-23) mg/dL Creatinine (0.60-1.20) mg/dL Est GFR ( Amer) (> 60) Est GFR (Non-Af Amer) (> 60) BUN/Creatinine Ratio (6-26) Glucose (70-105) mg/dL Calculated Osmolality (280-300) Lactic Acid 1.5 (0.5-2.2) mmol/L Calcium (8.6-10.3) mg/dL Total Bilirubin 1.6 H (0.3-1.0) mg/dL Direct Bilirubin 0.3 H (0.0-0.2) mg/dL Indirect Bilirubin 1.3 H (0.0-1.2) mg/dL AST (13-39) Units/L ALT (7-52) Units/L Alkaline Phosphatase (34-104) Units/L Troponin I (< 0.04) ng/mL Serum Total Protein (6.4-8.9) g/dL Albumin (3.5-5.7) g/dL Globulin (2.4-3.5) g/dL Albumin/Globulin Ratio (1.1-2.2) TSH (0.340-5.600) mcIU/mL Urine Color (Yellow) Urine Clarity (Clear) Urine pH (5.0-8.0) pH Units Ur Specific [place] (1.010-1.025) Urine Protein (Neg-Trace) mg/dL Urine Glucose (UA) (Normal) mg/dL Urine Ketones (Negative) mg/dL Urine Blood (Negative) Urine Nitrite (Negative) Urine Bilirubin (Negative) Urine Urobilinogen (Normal) mg/dL Ur Leukocyte Esterase (Negative) Urine Microscopic RBC (0-3) per hpf Urine Microscopic WBC (0-3) per hpf Ur Squamous Epith Cells (None-Few) per lpf Urine Bacteria (None-Few) per hpf Urine Yeast (None Seen) per hpf Ur Culture Indicated? (NO) Attestation Statement - Attestation Attestation: I examined this patient and my medical decision-making was reviewed with the Resident Physician. I agree with the documented findings, disposition and treatment plan as described except to the extent set forth below. Findings consistent with urinary tract infection. Patient will be admitted for further management. Antibiotics and cultures were initiated.
[2018-05-03] MEDS ORDERED: cefTRIAXone 1,000 MG in 0.9 % Sodium Chloride Mini Bag 100 ML IVPB ONE (14:00)
--- NOTE | 2018-05-03 16:12 | Electrocardiograph Report ---
[address] [place], [place] [address] Test Date: 2018-05-03 Pat Name: Mitzi Fonseca Department: Room: 2A Gender: F Tool Analyst: : 1930 Requested By: Terrie Sewell Order Number: [id number] Reading MD: Paz Gaspar Measurements Intervals [place] Rate: 92 P: 68 WI: 126 QRS: 55 QRSD: 120 T: 63 QT: 392 QTc: 485 Interpretive Statements Sinus rhythm RBBB Electronically Signed On 05-03-2018 16:10:57 EDT by Paz Gaspar
[2018-05-03] MEDS: *HR* Heparin 5,000 UNIT/ML VIAL SQ SCH (17:06)
[2018-05-03] MEDS ORDERED: Naloxone 0.4 MG/ML INJ IVP PRN (17:13)
[2018-05-03] MEDS ORDERED: Acetaminophen 325 MG TABLET PO PRN (17:13)
[2018-05-03] MEDS ORDERED: Ringers Solution, Lactated 1,000 ML IVC SCH (17:15)
--- NOTE | 2018-05-03 17:25 | Internal Med History&Physical ---
Date of Encounter: 05/03/18 Time of Encounter: 17:24 Internal Medicine - H&P: HPI Chief complaint: Joint pains Admitted From: Emergency Dept Plans for Post Hospital Care: Home History of present illness: Ms. Fonseca is a 87 year old female with history of diabetes, rheumatoid arthritis, he is being admitted for catheter associated UTI, per emergency room records. Upon questioning the patient, she reports three-day history of multiple joint pains, especially left shoulder and right ankle and multiple small joints of her hand. She has been feeling sick with worsening generalized weakness and significant debilitating joint pains. She does take tramadol and occasional [place] at home for chronic arthritic pains, which does not seem to help at this time. Reports no falls or trauma. Does not follow with rheumatology. No fever , chills, nausea, vomiting or abdominal pain. Patient does have chronic indwelling Alexandra catheter for the past year, which is changed every month, the last time about one week ago. She follows in the urology clinic for this. Noticed a tinge of hematuria last week when she followed with Dr. Forde, was told that this is normal with chronic Alexandra and no cause for worry. Past Med Surg Social Fam HX - Past Medical History Source: patient Medical history: arthritis, COPD, diabetes, GERD, RA, thyroid disease, other Psychiatric history: anxiety, depression - Past Surgical History Surgical History: no surgical history, cataract Additional surgical history: tonsils,carpal tunnel - Social History Smoking Status: Former smoker (quit long time ago) Smokeless Tobacco Status: No Alcohol use: none Drug use: none Current living situation: Home, With Family Activity Level: Uses cane/walker Recent Out of Country Travel Within the Last 8 Weeks: No Exposure or Possible Exposure to Illness During Travel: No - Family History Daughter Family Member Ethnicity: Non- Living Status: Still Living Hx Family Cardiac Disorders: Yes Mother Family Member Ethnicity: Non- Living Status: Hx Family Cancer: Yes (Colon) Father Family Member Ethnicity: Non- Living Status: Hx Family Cardiac Disorders: Yes (HD, [place]) Internal Medicine - H&P: Meds Aspirin Enteric Coated [Aspirin EC] 81 mg PO DAILY 12/31/16 [History] Calcium Crb,Cit/D3/Min34/Antonio [Citracal + Bone Density Tablet] 1 each PO DAILY 12/31/16 [History] Ergocalciferol (VITAMIN D2) [Vitamin D2] 50,000 unit PO QWEEK 12/31/16 [History] Gluc Quan/Chondro Quan A/Vit C/Mn [Glucosamine Chondroitin Tab] 1 each PO DAILY [History] Lansoprazole [Prevacid] 30 mg PO DAILY 12/31/16 [History] Metformin HCl [Glucophage] 1,000 mg PO BID 12/31/16 [History] Triamterene/HCTZ 37.5/25mg [Dyazide] 1 tab PO DAILY 12/31/16 [History] amLODIPine [Norvasc] 5 mg PO DAILY 12/31/16 [History] Oxybutynin [Ditropan] 5 mg PO BID 11/11/17 [History] Trazodone HCl 150 mg PO HS 11/15/17 [History] LORazepam [Ativan] 0.5 mg PO TID 5 Days #15 tablet 11/16/17 [Rx] Magnesium Oxide [Magnesium] 400 mg PO DAILY 03/07/18 [History] Escitalopram [Lexapro] 30 mg PO DAILY 05/03/18 [History] HYDROcodone/Acet 5/325 mg [[place] 5-325 mg] 1 tab PO BID PRN 05/03/18 [History] predniSONE [PredniSONE] 20 mg PO BID 05/03/18 [History] 3 Allergy/AdvReac Type Severity Reaction Status Date / Time bacitracin Allergy Blister Verified 07/23/15 16:34 [From Neosporin ([id number])] brompheniramine Allergy See Verified 07/23/15 16:34 [From Drixoral] Comments ciprofloxacin [From Cipro] Allergy See Verified 05/03/18 12:34 Comments codeine Allergy Rash Verified 07/23/15 16:34 Cyclobenzaprine Allergy Fatigued Verified 07/23/15 16:34 [From Flexeril] dexbrompheniramine Allergy See Verified 07/23/15 16:34 [From Drixoral] Comments Erythromycin Base Allergy Rash Verified 07/23/15 16:34 [From Erythrocin] Neomycin Allergy Blister Verified 07/23/15 16:34 [From Neosporin ([id number])] Penicillins [PCN] Allergy Rash Verified 07/23/15 16:34 polymyxin B Allergy Blister Verified 07/23/15 16:34 [From Neosporin ([id number])] pseudoephedrine Allergy See Verified 07/23/15 16:34 [From Drixoral] Comments trospium Allergy Swelling Verified 07/23/15 16:34 of Lip/Tongue/Throat mirtazapine [From Remeron] AdvReac Shakiness Verified 05/03/18 12:34 prednisone AdvReac Anxiety Verified 05/03/18 12:34 rosuvastatin [From Crestor] AdvReac Muscle Pain Verified 05/03/18 12:34 All Systems PM: A 10-system review of systems was performed and is negative for pertinent findings except as documented above in the HPI. - Constitutional Constitutional: chills, weakness - EENT Eyes: no change in vision, no discharge, no pain, no photophobia Ears: no ear discharge, no ear pain, no tinnitus Nose, mouth and throat: no dysphagia, no nasal discharge, no neck pain, no sore throat - Cardiovascular Cardiovascular ROS IM: no chest pain, no diaphoresis, no dyspnea, no lightheadedness, no palpitations, no syncope - Respiratory Respiratory: no cough, no dyspnea, no wheezing, no excessive phlegm production - Gastrointestinal Gastrointestinal: no abdominal pain, no diarrhea, no hematemesis, no hematochezia, no melena, no nausea, no vomiting - Genitourinary Genitourinary: no change in urinary stream, no dysuria, no flank pain, no hematuria - Musculoskeletal Musculoskeletal ROS IM: arthralgias, limited range of motion - Integumentary Integumentary IM: no rash, no unusual bruising - Neurological Neurological ROS: no confusion, no convulsions, no focal weakness, no numbness, no tingling, no tremor(s) - Hematologic/Lymphatic Hematologic/Lymphatic: no easy bruising - Constitutional Vitals: Temp Pulse Resp BP Pulse Ox 98.7 F 69 16 128/77 95 05/03/18 16:13 05/03/18 16:13 05/03/18 16:13 05/03/18 16:13 05/03/18 16:13 General appearance: Present: mild distress, A&O X 3, answers questions appropriately Exam: . - Respiratory Respiratory exam: Present: CTAB. Absent: accessory muscle use, rales, rhonchi, wheezes - Cardiovascular Cardiovascular exam: Present: RRR, +S1, +S2. Absent: diastolic murmur, gallop, rubs, systolic murmur - GI/Abdominal GI/Abdominal exam: Present: normal bowel sounds, soft, no peritoneal signs. Absent: distended, tenderness - Extremities Exam Extremities exam: Present: warm, radial pulses palpable and symmetrical. Absent : calf tenderness, cyanotic, pedal edema Additional comments: tenderness over left shoulder and B/L ankle joints; no significant joint swelling noted; B/L small joints in hands slightly deformed, tenderness noted; no erythema/ gouty deposits; - Neurological Exam Neurological exam: Present: CN II-XII intact, oriented X3, no focal deficits. Absent: pronater drift, facial droop, speech deficit - Skin Skin exam: Present: dry, intact Internal Med - H&P Results - Labs CBC & Chem 7: 05/04/18 05:27 05/04/18 05:27 - Assessment and plan (1) Shoulder pain Current Visit: Yes Status: Acute Assessment and plan: Likely related to a flareup of rheumatoid arthritis. Check ESR and CRP. We will consult rheumatology. Patient recently completed a course of oral steroids. Pain control with when necessary Tylenol and oxycodone. Review of previous imaging studies on multiple joints, which showed significant arthritis. Qualifiers: Chronicity: acute Laterality: left Qualified Code(s): M25.512 - Pain in left shoulder (2) Urinary tract infection Current Visit: Yes Status: Acute Assessment and plan: Urinalysis suggestive of UTI. Could be catheter associated UTI, but could be colonization given the absence of symptoms. Patient did present with leukocytosis and tachycardia, will start IV antibiotics at this time-vancomycin and Rocephin. Follow-up blood and urine cultures. Previous urine culture grew multidrug resistant Klebsiella and Enterococcus faecalis. Qualifiers: Urinary tract infection type: site unspecified Hematuria presence: without hematuria Qualified Code(s): N39.0 - Urinary tract infection, site not specified (3) Hypothyroidism Current Visit: Yes Status: Chronic Qualifiers: Hypothyroidism type: unspecified Qualified Code(s): E03.9 - Hypothyroidism , unspecified (4) Anxiety and depression Current Visit: Yes Status: Chronic Assessment and plan: Resume home medications. (5) COPD (chronic obstructive pulmonary disease) Current Visit: Yes Status: Chronic Assessment and plan: Reports a history of COPD and has been on nocturnal home oxygen in the past. However, currently she does not have inhalers/nebulizers/home oxygen. Continue when necessary breathing treatments. Qualifiers: COPD type: unspecified COPD Qualified Code(s): J44.9 - Chronic obstructive pulmonary disease, unspecified (6) Constipation Current Visit: Yes Status: Chronic Qualifiers: Constipation type: slow transit constipation Qualified Code(s): K59.01 - Slow transit constipation (7) Rheumatoid arthritis Current Visit: Yes Status: Chronic Qualifiers: Rheumatoid arthritis location: multiple sites Rheumatoid factor presence: unspecified presence Qualified Code(s): M06.9 - Rheumatoid arthritis, unspecified (8) Sepsis Current Visit: Yes Status: Suspected Assessment and plan: Presented with leukocytosis and tachycardia, which could be sepsis but it could also be related to flareup of rheumatoid arthritis. Continue antibiotics and monitor vital signs closely. Follow-up cultures. Qualifiers: Sepsis type: sepsis due to unspecified organism Qualified Code(s): A41.9 - Sepsis, unspecified organism - Time Spent With Patient Total time spent is greater than 50% in coordination of care (as documented) at patient's floor/unit and/or counseling patient:
[2018-05-03] MEDS ORDERED: *HR* Dextrose 50 % in Water (Syg) 50 ML SYRINGE IVP PRN (17:57)
[2018-05-03] MEDS ORDERED: Dextrose Gel 15 GM/37.5 ML TUBE PO PRN ×2 (17:57)
[2018-05-03] MEDS ORDERED: D5% in Water 1,000 ML IVC PRN (17:57)
[2018-05-03] MEDS: traMADol 50 MG TABLET PO PRN (20:51)
[2018-05-03] MEDS: traZODone 50 MG TABLET PO SCH (20:51)
[2018-05-03] MEDS: *HR* LORazepam 0.5 MG TABLET PO SCH (20:51)
[2018-05-03] MEDS ORDERED: Insulin LISPRO 300 UNITS/3 ML VIAL SQ SCH (21:00)
[2018-05-04] MEDS ORDERED: cefTRIAXone 2,000 MG in Water for inj. (sterile) 20 ML 20 ML IVP SCH
[2018-05-04] MEDS: *HR* OxyCODONE Immed Rel 5 MG TABLET PO PRN (01:12)
[2018-05-04] MEDS: *HR* Heparin 5,000 UNIT/ML VIAL SQ SCH ×2 (05:07→17:24)
[2018-05-04 05:47] LABS: Basophils % 0.1 %; Eosinophils # 0.2 K/mcL (0.0-0.6); Eosinophils % 1.1 %; Hematocrit 31.8 % (35.3-44.9); Immature Granulocytes % 1.3 % (0-4); Lymphocytes # 2.8 K/mcL (0.6-4.6); Lymphocytes % 18.4 %; Mean Corpuscular HGB Conc 33.6 g/dL (31.6-35.5); Mean Corpuscular Hemoglobin 29.2 pg (28.0-33.3); Mean Corpuscular Volume 86.9 fL (83.0-100.0); Mean Platelet Volume 10.2 fL (9.4-12.4); Monocytes # 1.5 K/mcL (0.0-1.3); Monocytes % 10.3 %; Neutrophils # 10.2 K/mcL (1.6-8.9); Platelet Count 123 K/mcL (140-400); Red Blood Count 3.66 M/mcL (3.82-4.97); Red Cell Distribution Width 13.2 % (11.5-14.5); Segmented Neutrophils % 68.8 %
[2018-05-04 05:53] LABS: Hemoglobin 10.7 g/dL (11.5-15.4)
[2018-05-04 06:09] LABS: BUN/Creatinine Ratio 19 (6-26); Blood Urea Nitrogen 16 mg/dL (8-23); Calcium 8.2 mg/dL (8.6-10.3); Carbon Dioxide 24 mEq/L (23-29); Chloride 100 mEq/L (98-107); Glucose 250 mg/dL (70-105); Osmolality,Calculated 288 (280-300); Potassium 3.7 mEq/L (3.5-5.1); Sodium 134 mEq/L (136-145); eGFR For Non-African Americans > 60 (> 60)
[2018-05-04] MEDS ORDERED: Insulin LISPRO 300 UNITS/3 ML VIAL SQ SCH ×2 (07:30→21:00)
[2018-05-04] MEDS ORDERED: Aminoglycoside Consult 1 EACH MC ONE (08:23)
[2018-05-04] MEDS: Aspirin Enteric Coated 81 MG Tablet PO SCH (08:28)
[2018-05-04] MEDS: amLODIPine 5 MG TABLET PO SCH (08:28)
[2018-05-04] MEDS: Magnesium Oxide 400 MG TABLET PO SCH (08:28)
[2018-05-04] MEDS: *HR* LORazepam 0.5 MG TABLET PO SCH ×3 (08:28→20:40)
[2018-05-04] MEDS: Cholecalciferol (D-3) 1,000 UNIT TABLET PO SCH (08:48)
[2018-05-04] MEDS: Insulin LISPRO 300 UNITS/3 ML VIAL SQ SCH ×2 (12:23→17:24)
--- NOTE | 2018-05-04 13:37 | Rheumatology Consult Note ---
<Abbi Hendricks - Last Filed: 05/04/18 17:24> Date of Encounter: 05/04/18 Time of Encounter: 13:21 Rheumatology Assess and Plan (1) Polyarthralgia Current Visit: Yes Status: Acute Significant bilateral shoulder pain/ tenderness but no pelvic girdle tenderness along with bilateral wrist and finger swelling. This may be polymyalgia rheumatica with concerns for possible GCA. Inflammatory reactive proteins are elevated; ESR 66, CRP 210. 04/20/2018 RF and CCP negative for RA -may give a trial dose of prednisone 60mg daily to see if it improves pain which would be more indicative of PMR. Will re-evaluate tomorrow (2) Shoulder pain Current Visit: Yes Status: Acute As above Qualifiers: Chronicity: acute Laterality: left Qualified Code(s): M25.512 - Pain in left shoulder (3) Elevated C-reactive protein Current Visit: Yes Status: Acute Elevated CRP 210 with ESR 66. Work up for autoimmune disease but also could be infectious cause. -management as above (4) UTI (urinary tract infection) Current Visit: No Status: Resolved Urinary tract infection demonstrated by urinalysis with nitrite and leukocyte esterase positive. -Management per primary team Qualifiers: Urinary tract infection type: acute cystitis Hematuria presence: without hematuria Qualified Code(s): N30.00 - Acute cystitis without hematuria Rheumatology HPI Consult date: 05/04/18 Requesting physician: Angela Quinones Consult reason: joint pain, concern RA Chief complaint: joint pain History of present illness: Ms. Fonseca is a 87 year old female with PMH RA, hypothyroidism, COPD, DM presented to [facility] via EMS complaining of joint pain. Upon admission she was found to have a urinary tract infection is currently on antibiotics. Rheumatology was consulted due to joint pain in multiple areas including bilateral hands, shoulders, and left ankle. Patient is a very poor historian and only answers some questions despite being alert and oriented times 3. There is no family at bedside upon my examination. The patient reports that the joint pain started 3 days ago. She does not elaborate on the quality of the pain or if she takes anything to help with the pain. She has stiffness of the joints in her hands in the morning and throughout the day. She denied raynauds, trauma/ fall. She did not answer when asked if she has swelling, weakness, psoriasis. Per medical history she has rheumatoid arthritis listed as a diagnosis, however upon review of medications there are none listed that are to treat rheumatoid arthritis besides prednisone, however she does not know if she takes the prednisone. She does not know if she has rheumatoid arthritis or if she has ever seen a quantitative strategy analyst. Past Med Surg Social Fam HX - Past Medical History Attestation: Yes The following information was validated with the patient. Medical history: arthritis, COPD, diabetes, GERD, RA, thyroid disease, other Psychiatric history: anxiety, depression - Past Surgical History Surgical History: no surgical history, cataract Additional surgical history: tonsils,carpal tunnel - Social History Smoking Status: Former smoker (quit long time ago) Smokeless Tobacco Status: No Alcohol use: none Drug use: none - Family History Daughter Family Member Ethnicity: Non- Living Status: Still Living Hx Family Cardiac Disorders: Yes Mother Family Member Ethnicity: Non- Living Status: Hx Family Cancer: Yes (Colon) Father Family Member Ethnicity: Non- Living Status: Hx Family Cardiac Disorders: Yes (HD, [place]) Medications and Allergies Aspirin Enteric Coated [Aspirin EC] 81 mg PO DAILY 12/31/16 [History] Calcium Crb,Cit/D3/Min34/Antonio [Citracal + Bone Density Tablet] 1 each PO DAILY 12/31/16 [History] Ergocalciferol (VITAMIN D2) [Vitamin D2] 50,000 unit PO QWEEK 12/31/16 [History] Gluc Quan/Chondro Quan A/Vit C/Mn [Glucosamine Chondroitin Tab] 1 each PO DAILY [History] Lansoprazole [Prevacid] 30 mg PO DAILY 12/31/16 [History] Metformin HCl [Glucophage] 1,000 mg PO BID 12/31/16 [History] Triamterene/HCTZ 37.5/25mg [Dyazide] 1 tab PO DAILY 12/31/16 [History] amLODIPine [Norvasc] 5 mg PO DAILY 12/31/16 [History] Oxybutynin [Ditropan] 5 mg PO BID 11/11/17 [History] Trazodone HCl 150 mg PO HS 11/15/17 [History] LORazepam [Ativan] 0.5 mg PO TID 5 Days #15 tablet 11/16/17 [Rx] Magnesium Oxide [Magnesium] 400 mg PO DAILY 03/07/18 [History] Escitalopram [Lexapro] 30 mg PO DAILY 05/03/18 [History] HYDROcodone/Acet 5/325 mg [[place] 5-325 mg] 1 tab PO BID PRN 05/03/18 [History] predniSONE [PredniSONE] 20 mg PO BID 05/03/18 [History] 3 Allergy/AdvReac Type Severity Reaction Status Date / Time bacitracin Allergy Blister Verified 07/23/15 16:34 [From Neosporin ([id number])] brompheniramine Allergy See Verified 07/23/15 16:34 [From Drixoral] Comments ciprofloxacin [From Cipro] Allergy See Verified 05/03/18 12:34 Comments codeine Allergy Rash Verified 07/23/15 16:34 Cyclobenzaprine Allergy Fatigued Verified 07/23/15 16:34 [From Flexeril] dexbrompheniramine Allergy See Verified 07/23/15 16:34 [From Drixoral] Comments Erythromycin Base Allergy Rash Verified 07/23/15 16:34 [From Erythrocin] Neomycin Allergy Blister Verified 07/23/15 16:34 [From Neosporin ([id number])] Penicillins [PCN] Allergy Rash Verified 07/23/15 16:34 polymyxin B Allergy Blister Verified 07/23/15 16:34 [From Neosporin ([id number])] pseudoephedrine Allergy See Verified 07/23/15 16:34 [From Drixoral] Comments trospium Allergy Swelling Verified 07/23/15 16:34 of Lip/Tongue/Throat mirtazapine [From Remeron] AdvReac Shakiness Verified 05/03/18 12:34 prednisone AdvReac Anxiety Verified 05/03/18 12:34 rosuvastatin [From Crestor] AdvReac Muscle Pain Verified 05/03/18 12:34 All Systems Review: The remainder of the systems were reviewed and are negative Review of Systems: - Constitutional: would not answer fevers, chills, weight loss, generalized fatigue - EENT: would not answer change in vision, dry eyes - CVS: would not answer chest pain - Pulm: would not answer SOB, cough, sputum - MSK: admits joint pain in hands, shoulders, left ankle, limited ROM - Skin: would not answer rashes, ulcers, color changes, itching - Neuro: would not answer ataxia Rheumatology Exam Vital Signs, Last 4 Hours Temp Pulse Resp BP Pulse Ox 05/04/18 12:36 99.7 F H 90 17 114/74 95 Exam: Gen.: Vitals noted. No acute distress. AAOx3 HEENT: oropharynx clear, Normocephalic, atraumatic, no tenderness to temporal region bilateral, no jaw tenderness Cardiac: RRR, no murmur, +S1/S2, no pitting edema Pulmonary: CTA bilaterally, no wheezes, rales or rhonchi, equal chest expansion Abdomen: soft, nontender, Bowel sounds noted, no guarding, no organomegaly MSK: ROM decreased, joint swelling noted in wrist and fingers, shoulder tenderness, heberden and becky nodes present skin: no erythema or rash Neuro: A&Ox3, no focal defecits Psych: normal affect and mood Rheumatology Results 05/04/18 05:27 05/04/18 05:27 All other labs normal. Consult Discharge Plan - Plan Referrals: Aldo Alvarenga MD [Primary Care Provider] - <Walter Foster - Last Filed: 05/04/18 18:00> Date of Encounter: 05/04/18 Rheumatology HPI History of present illness: Ms. Fonseca is a 87 year old female All Systems Review: The remainder of the systems were reviewed and are negative Rheumatology Results 05/04/18 05:27 05/04/18 05:27 All other labs normal. - Attending Attestation I examined this patient and my medical decision making was reviewed with the resident physician. I agree with the documented findings, disposition and treatment as described with these exceptions. In Summary, Mitzi Fonseca is an 87 year old with PMH of DM, osteoarthritis, COPD who presents to [facility] with worsening joint pain also found to have a UTI. Patient today is alert and oriented but is not responding to questions frequently when asked so history is a bit difficult. Reports severe shoulder pain, hand stiffness. It is difficult to gather if a headache is a complaint as she is inconsistently responding and response to scalp and temporal tenderness is inconsistent as well. - UA - RBC, Protein, nitrtites with few squamous; bacteria present - ESR and CRP markedly elevated - CXR unremarkable - Previous RF and CCP negative Exam - Limited ROM due to pain. Diffuse swelling of the bilateral hands and inability to make a fist. At this time, I think we should consider polymyalgia rheumatica; this is typically a clinical diagnosis based on history but this is a bit difficult to obtain at this time. She also reports some features concerning for giant cell arteritis. I would recommend starting her on prednisone 60 mg and assessing for a response. I will return tomorrow to reassess, discuss more with patient and possibly family if able. If GCA continues to be on the differential, will work to get a biopsy as soon as possible. I discussed the case with Dr. Quinones.
--- NOTE | 2018-05-04 14:12 | Internal Med Progress Note ---
Hospitalist Progress Note - Encounter Date of Encounter: 05/04/18 Time of Encounter: 11:40 - Subjective Interval History: noted to be somewhat drowsy today, with a low voice; responds to questions but does not give detailed answers; no fever/chills; continues to have joint pains, only slightly improved; no chest pain, shortness of breath; - Exam Vitals: Temp Pulse Resp BP Pulse Ox 99.7 F H 90 17 114/74 95 05/04/18 12:36 05/04/18 12:36 05/04/18 12:36 05/04/18 12:36 05/04/18 12:36 Exam: General- well-developed, lying in bed, no distress, somnolent Respiratory- clear to auscultation B/L anterolaterally CVS- S1, S2 heard; RRR; trace pedal edema Abdomen- soft, obese, nontender - Assessment and Plan (1) Shoulder pain Current Visit: Yes Status: Acute Assessment and Plan: Likely related to a flareup of rheumatoid arthritis?. ESR and CRP are mildly elevated. RF and anti-CCP IgG checked recently were negative. Consulted rheumatology. Patient recently completed a course of oral steroids recently. Pain control with when necessary Tylenol, Tramadol and oxycodone. PT/OT evaluation when stable; (2) Urinary tract infection Current Visit: Yes Status: Acute Assessment and Plan: Urinalysis suggestive of UTI. Could be catheter-associated UTI. Preliminary Urine culture grew GNR- Pseudomonas, yeast species; will change antibiotics to Cefepime, discontinue Rocephin and Vancomycin; Follow-up final blood and urine cultures. (3) Hypothyroidism Current Visit: Yes Status: Chronic (4) Anxiety and depression Current Visit: Yes Status: Chronic (5) COPD (chronic obstructive pulmonary disease) Current Visit: Yes Status: Chronic (6) Constipation Current Visit: Yes Status: Chronic (7) Rheumatoid arthritis Current Visit: Yes Status: Suspected Assessment and Plan: patient self-reports h/o- rheumatoid arthritis, but RF and anti-CCP negative as mentioned above; will f/up Rheumatology recommendations; (8) Sepsis Current Visit: Yes Status: Suspected Assessment and Plan: Presented with leukocytosis and tachycardia, which could be sepsis due to UTI. Continue antibiotics and monitor vital signs closely. Follow-up cultures. Leukocytosis improving; DVT Prophylaxis: on s.c Heparin - Time Spent with Patient Total time spent is greater than 50% in coordination of care (as documented) at patient's floor/unit and/or counseling patient: Plan of Care Discussed with: collection systems consultant Internal Medicine: Result - Labs CBC & Chem 7: 05/04/18 05:27 05/04/18 05:27 Labs: Short CBC 05/04/18 Range/Units 05:27 WBC 14.9 H (4.3-11.1) K/mcL Hgb 10.7 L D (11.5-15.4) g/dL Hct 31.8 L (35.3-44.9) % Plt Count 123 L (140-400) K/mcL Neutrophils # 10.2 H (1.6-8.9) K/mcL BMP 05/04/18 05:27 Sodium 134 L Potassium 3.7 Chloride 100 Carbon Dioxide 24 BUN 16 Creatinine 0.83 Glucose 250 H Calcium 8.2 L Consult Discharge Plan - Plan Referrals: Aldo Alvarenga MD [Primary Care Provider] - (1) Shoulder pain Qualifiers: Chronicity: acute Laterality: left Qualified Code(s): M25.512 - Pain in left shoulder (2) Urinary tract infection Qualifiers: Urinary tract infection type: site unspecified Hematuria presence: without hematuria Qualified Code(s): N39.0 - Urinary tract infection, site not specified (3) Hypothyroidism Qualifiers: Hypothyroidism type: unspecified Qualified Code(s): E03.9 - Hypothyroidism, unspecified (5) COPD (chronic obstructive pulmonary disease) Qualifiers: COPD type: unspecified COPD Qualified Code(s): J44.9 - Chronic obstructive pulmonary disease, unspecified (6) Constipation Qualifiers: Constipation type: slow transit constipation Qualified Code(s): K59.01 - Slow transit constipation (7) Rheumatoid arthritis Qualifiers: Rheumatoid arthritis location: multiple sites Rheumatoid factor presence: unspecified presence Qualified Code(s): M06.9 - Rheumatoid arthritis, unspecified (8) Sepsis Qualifiers: Sepsis type: sepsis due to unspecified organism Qualified Code(s): A41.9 - Sepsis, unspecified organism
[2018-05-04] MEDS: Cefepime HCl 2,000 MG in Water for inj. (sterile) 20 ML 20 ML IVP SCH (16:04)
[2018-05-04] MEDS ORDERED: predniSONE 20 MG TABLET PO ONE (17:00)
[2018-05-04] MEDS ORDERED: MethylPREDNISolone 40 MG/ML VIAL IVP ONE (17:57)
[2018-05-04] MEDS: Insulin DETEMIR 100 UNIT/ML X5UNITS SQ SCH (20:35)
[2018-05-04] MEDS: traZODone 50 MG TABLET PO SCH (20:40)
[2018-05-04] MEDS: traMADol 50 MG TABLET PO PRN (20:40)
[2018-05-05] MEDS: Cefepime HCl 2,000 MG in Water for inj. (sterile) 20 ML 20 ML IVP SCH ×2 (02:08→14:51)
[2018-05-05] MEDS: *HR* Heparin 5,000 UNIT/ML VIAL SQ SCH ×2 (06:20→16:45)
[2018-05-05 06:38] LABS: Basophils % 0.1 %; Hematocrit 35.8 % (35.3-44.9); Hemoglobin 11.9 g/dL (11.5-15.4); Immature Granulocytes % 1.4 % (0-4); Lymphocytes # 0.8 K/mcL (0.6-4.6); Lymphocytes % 5.2 %; Mean Corpuscular HGB Conc 33.2 g/dL (31.6-35.5); Mean Corpuscular Hemoglobin 29.1 pg (28.0-33.3); Mean Corpuscular Volume 87.5 fL (83.0-100.0); Mean Platelet Volume 10.8 fL (9.4-12.4); Monocytes # 0.8 K/mcL (0.0-1.3); Monocytes % 5.3 %; Neutrophils # 13.5 K/mcL (1.6-8.9); Platelet Count 133 K/mcL (140-400); Red Blood Count 4.09 M/mcL (3.82-4.97); Red Cell Distribution Width 13.1 % (11.5-14.5)
[2018-05-05] MEDS ORDERED: predniSONE 20 MG TABLET PO SCH (09:00)
--- NOTE | 2018-05-05 09:04 | Rheumatology Progress Note ---
<Abbi Hendricks - Last Filed: 05/05/18 13:17> Date of Encounter: 05/05/18 Time of Encounter: 09:02 Rheumatology Assess and Plan (1) Polyarthralgia Current Visit: Yes Status: Acute Patient is markedly improved from yesterday after having received a trial dose of Solu-Medrol 40 mg. She has no tenderness to palpation of her shoulders still has some pain. Joint swelling has improved and is only present on the left wrist and fingers. She is able to semi make a fist as opposed to yesterday she could not even try. This is encouraging and is indicative of polymyalgia rheumatica as this is a clinical diagnosis. There is still the possibility of concomitant giant cell arteritis. The patient denies headache, jaw pain. She does have minimal pain with eating just because she does not have her mouth plate she reports. -Inflammatory reactive proteins are elevated; ESR 66, CRP 210. -04/20/2018 RF and CCP negative for RA -Exam: no tenderness to the shoulders bilaterally, improved range of motion of upper extremities, decreased swelling of the hands with only swelling in the left wrist and fingers, able to semi make a fist. Much more talkative today. Recommend the continuation of steroids as this is likely PMR. Upon discharge she should get Prednisone 60mg qd. She will follow up out patient in 1 week with the office making the appointment. Will consider discussion of temporal artery biopsy to test for GCA. (2) Shoulder pain Current Visit: Yes Status: Acute As above Qualifiers: Chronicity: acute Laterality: left Qualified Code(s): M25.512 - Pain in left shoulder (3) Elevated C-reactive protein Current Visit: Yes Status: Acute Elevated CRP 210 with ESR 66. Work up for autoimmune disease but also could be infectious cause. -management as above (4) UTI (urinary tract infection) Current Visit: No Status: Resolved Urinary tract infection demonstrated by urinalysis with nitrite and leukocyte esterase positive. Urine culture positive for gram-negative rods and yeast. -Management per primary team Qualifiers: Urinary tract infection type: acute cystitis Hematuria presence: without hematuria Qualified Code(s): N30.00 - Acute cystitis without hematuria - Subjective Interval history: 87 year old female with PMH hypothyroidism, COPD, DM presented to [facility] via EMS complaining of joint pain and found to have a urinary tract infection and is currently on antibiotics. Today upon my examination of the patient at bedside she is markedly improved from yesterday in terms of tenderness to her shoulders and arms, joint swelling improved with only swelling of her left wrist and hand, she can almost make a fist bilaterally as supposed to yesterday she could not. She is alert and oriented times 3 and is much more talkative today. The patient reported that her tenderness and joint pain is much improved. Patient was able to tell more of the history of what happened and not she woke up one morning unable to lift her arms and get out of bed due to significant pain in her shoulders and left leg. She denied raynauds. She has joint stiffness in her hands in the mornings which improves after a couple hours. Exam Vital Signs, Last 4 Hours Temp Pulse Resp BP Pulse Ox 05/05/18 07:43 98.8 F 78 16 117/79 97 Exam: Gen.: Vitals noted. No acute distress. AAOx3 HEENT: oropharynx clear, Normocephalic, atraumatic, dry mouth Neck: Supple. Tenderness Cardiac: RRR, no murmur, +S1/S2, no pitting edema Pulmonary: CTA bilaterally, no wheezes, rales or rhonchi, equal chest expansion Abdomen: soft, nontender, Bowel sounds noted, no organomegaly MSK: ROM decreased, joint swelling of left hand and fingers, cannot make a fully closed fist, no tenderness disorders, becky and heberden nodules b/l Neuro: A&Ox3, moves all extremities Psych: Appropriate mood and behavior Objective Data 05/05/18 05:35 05/04/18 05:27 All other labs normal. Consult Discharge Plan - Plan Referrals: Aldo Alvarenga MD [Primary Care Provider] - <Walter Foster W - Last Filed: 05/05/18 14:24> Date of Encounter: 05/05/18 Exam Vital Signs, Last 4 Hours Temp Pulse Resp BP Pulse Ox 05/05/18 11:39 98.5 F 102 18 121/71 96 Objective Data 05/05/18 05:35 05/04/18 05:27 All other labs normal. - Attending Attestation I examined this patient and my medical decision making was reviewed with the resident physician. I agree with the documented findings, disposition and treatment as described with these exceptions. Mitzi has markedly improved with IV solu-medrol. At this time, she is clinically appearing to be most consistent with polymyalgia rheumatica. Talking to her daughter and , most of these symptoms started 2-3 weeks ago with diffuse aching, pain all over and inability to move. The patient denies headaches, temporal pain, jaw claudication and tongue pain though admits to some posterior scalp pain but has had this for a while. At this time, most consistent with polymyalgia rheumatica and while she had some posterior neck and mild scalp pain, no classic features of GCA. I did discuss the utility of a biopsy and she is not wanting to do any procedures. Given the severity of initial symptoms and the rapid improvement, would discharge on prednisone 40 mg and I will see her in my clinic next week to see how she is progressing and hopefully discharge. I will be out of the hospital till Wednesday and if she is still here, I will round.
[2018-05-05] MEDS: Insulin LISPRO 300 UNITS/3 ML VIAL SQ SCH ×4 (09:32→21:44)
[2018-05-05] MEDS: Insulin DETEMIR 100 UNIT/ML X5UNITS SQ SCH (09:32)
[2018-05-05] MEDS: amLODIPine 5 MG TABLET PO SCH (09:33)
[2018-05-05] MEDS: Magnesium Oxide 400 MG TABLET PO SCH (09:33)
[2018-05-05] MEDS: predniSONE 20 MG TABLET PO SCH (09:33)
[2018-05-05] MEDS: *HR* LORazepam 0.5 MG TABLET PO SCH ×3 (09:33→21:39)
[2018-05-05] MEDS: Cholecalciferol (D-3) 1,000 UNIT TABLET PO SCH (09:33)
[2018-05-05] MEDS: Aspirin Enteric Coated 81 MG Tablet PO SCH (09:33)
--- NOTE | 2018-05-05 14:45 | Internal Med Progress Note ---
Hospitalist Progress Note - Encounter Date of Encounter: 05/05/18 Time of Encounter: 11:00 - Subjective Interval History: continues to complain of widespread pain but after discussing with the RN and windows server support technician, it appears that she had significantly improved from the day prior. Denies any headache, jaw pain with chewing, or change in vision. - Exam Vitals: Temp Pulse Resp BP Pulse Ox 98.5 F 102 18 121/71 96 05/05/18 11:39 05/05/18 11:39 05/05/18 11:39 05/05/18 11:39 05/05/18 11:39 Exam: General- alert mild distress due to pain Respiratory- clear to auscultation B/L anterolaterally CVS- S1, S2 heard; RRR; trace pedal edema Abdomen- soft, obese, nontender MSK - joint swelling noted in left hand and wrist. Both feet non-tender on palpation. Mild shoulder girdle tenderness. - Assessment and Plan (1) Urinary tract infection Current Visit: Yes Status: Acute Assessment and Plan: Urinalysis suggestive of UTI. Could be catheter-associated UTI. Preliminary Urine culture grew GNR- Pseudomonas sen to cefepime and resistant to cipro/levo Afebrile, increase in WBC can be due to steroid that was started yesterday. Continue D2 Cefepime Follow-up final blood and urine cultures (2) Shoulder pain Current Visit: Yes Status: Acute Assessment and Plan: concerning for PMR. ESR and CRP are mildly elevated. RF and anti-CCP IgG checked recently were negative Rheumatology input appreciated, marked improvement after steroids continue PO prednisone 60mg till Rheumatology follow up next week Pain control with when necessary Tylenol, Tramadol and oxycodone. PT/OT evaluation done today, recommended SNF work on placement with SW/case management (3) Sepsis Current Visit: Yes Status: Suspected Assessment and Plan: Presented with leukocytosis and tachycardia, which could be sepsis due to UTI. Continue antibiotics as above. Follow-up cultures. Leukocytosis slightly worsened but she also received steroids yesterday (4) COPD (chronic obstructive pulmonary disease) Current Visit: Yes Status: Chronic Assessment and Plan: Reports a history of COPD and has been on nocturnal home oxygen in the past. However, currently she does not have inhalers/nebulizers/home oxygen. Continue when necessary breathing treatments. (5) Anxiety and depression Current Visit: Yes Status: Chronic Assessment and Plan: Resume home medications. (6) Diabetes mellitus Current Visit: Yes Status: Acute Assessment and Plan: Worsening hyperglycemia due to steroids. Will increase Levemir to 15 units twice a day and expand the sliding scale coverage to high-dose. (7) Hypothyroidism Current Visit: Yes Status: Chronic Assessment and Plan: resume home meds DVT Prophylaxis: SQ heparin - Time Spent with Patient Total time spent is greater than 50% in coordination of care (as documented) at patient's floor/unit and/or counseling patient: Plan of Care Discussed with: strategy execution consultant Internal Medicine: Result - Labs CBC & Chem 7: 05/05/18 05:35 05/04/18 05:27 Labs: Short CBC 05/05/18 Range/Units 05:35 WBC 15.3 H (4.3-11.1) K/mcL Hgb 11.9 (11.5-15.4) g/dL Hct 35.8 (35.3-44.9) % Plt Count 133 L (140-400) K/mcL Neutrophils # 13.5 H (1.6-8.9) K/mcL - Impressions Impressions Head CT 05/04/18 17:51 IMPRESSION: No acute intracranial abnormality. D/ / 05/04/2018 19:39:47 Xavier Weinstein MD / francis Interpreting Provider: Xavier Weinstein MD Consult Discharge Plan - Plan Referrals: Aldo Alvarenga MD [Primary Care Provider] - (1) Urinary tract infection Qualifiers: Urinary tract infection type: site unspecified Hematuria presence: without hematuria Qualified Code(s): N39.0 - Urinary tract infection, site not specified (2) Shoulder pain Qualifiers: Chronicity: acute Laterality: left Qualified Code(s): M25.512 - Pain in left shoulder (3) Sepsis Qualifiers: Sepsis type: sepsis due to unspecified organism Qualified Code(s): A41.9 - Sepsis, unspecified organism (4) COPD (chronic obstructive pulmonary disease) Qualifiers: COPD type: unspecified COPD Qualified Code(s): J44.9 - Chronic obstructive pulmonary disease, unspecified (6) Diabetes mellitus Qualifiers: Diabetes mellitus type: type 2 Diabetes mellitus 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
[2018-05-05] MEDS ORDERED: MethylPREDNISolone 40 MG/ML VIAL IVP SCH (18:00)
[2018-05-05] MEDS ORDERED: Insulin DETEMIR 100 UNIT/ML X5UNITS SQ SCH (21:00)
[2018-05-05] MEDS: traZODone 50 MG TABLET PO SCH (21:39)
[2018-05-05] MEDS: traMADol 50 MG TABLET PO PRN (21:40)
[2018-05-06] MEDS ORDERED: Insulin LISPRO 300 UNITS/3 ML VIAL SQ ONE (01:16)
[2018-05-06] MEDS: Cefepime HCl 2,000 MG in Water for inj. (sterile) 20 ML 20 ML IVP SCH ×2 (02:19→15:29)
[2018-05-06] MEDS: *HR* Heparin 5,000 UNIT/ML VIAL SQ SCH ×2 (05:31→17:45)
[2018-05-06 05:32] LABS: Basophils % 0.1 %; Hematocrit 29.7 % (35.3-44.9); Immature Granulocytes % 0.8 % (0-4); Mean Corpuscular Hemoglobin 28.9 pg (28.0-33.3); Mean Corpuscular Volume 84.9 fL (83.0-100.0); Mean Platelet Volume 10.6 fL (9.4-12.4); Monocytes # 1.4 K/mcL (0.0-1.3); Monocytes % 7.1 %; Neutrophils # 16.5 K/mcL (1.6-8.9); Platelet Count 161 K/mcL (140-400); Red Cell Distribution Width 13.1 % (11.5-14.5)
[2018-05-06 05:34] LABS: Calcium 8.3 mg/dL (8.6-10.3); Potassium 3.9 mEq/L (3.5-5.1)
[2018-05-06 05:40] LABS: Hemoglobin 10.1 g/dL (11.5-15.4)
[2018-05-06] MEDS: Insulin LISPRO 300 UNITS/3 ML VIAL SQ SCH ×8 (08:47→21:07)
[2018-05-06] MEDS: Magnesium Oxide 400 MG TABLET PO SCH (08:55)
[2018-05-06] MEDS: *HR* LORazepam 0.5 MG TABLET PO SCH ×3 (08:55→21:18)
[2018-05-06] MEDS: Cholecalciferol (D-3) 1,000 UNIT TABLET PO SCH (08:55)
[2018-05-06] MEDS: 0.9 % Sodium Chloride 1,000 ML IVC SCH ×2 (08:55→23:49)
[2018-05-06] MEDS: Aspirin Enteric Coated 81 MG Tablet PO SCH (08:55)
[2018-05-06] MEDS: amLODIPine 5 MG TABLET PO SCH (08:55)
[2018-05-06] MEDS: predniSONE 20 MG TABLET PO SCH (08:55)
[2018-05-06] MEDS: Insulin DETEMIR 100 UNIT/ML X5UNITS SQ SCH ×2 (12:08→21:22)
--- NOTE | 2018-05-06 15:25 | Internal Med Progress Note ---
Hospitalist Progress Note - Encounter Date of Encounter: 05/06/18 Time of Encounter: 14:10 - Subjective Interval History: patient in much better spirit, denies significant pain over her joints other than shoulder girdles. No fever/chills or dysuria - Exam Vitals: Temp Pulse Resp BP Pulse Ox 97.9 F 90 18 114/72 94 05/06/18 11:54 05/06/18 11:54 05/06/18 11:54 05/06/18 11:54 05/06/18 11:54 Exam: General- alert, not in distress Respiratory- clear to auscultation B/L anterolaterally CVS- S1, S2 heard; RRR; trace pedal edema Abdomen- soft, obese, nontender MSK - joint swelling noted in left hand and wrist which is improving. Both feet non-tender on palpation. Mild shoulder girdle tenderness. - Assessment and Plan (1) Urinary tract infection Current Visit: Yes Status: Acute Assessment and Plan: Urinalysis suggestive of UTI. Could be catheter-associated UTI. Urine culture grew GNR- Pseudomonas sen to cefepime and resistant to cipro/levo Afebrile, increase in WBC can be due to steroid that was started yesterday. Continue D3 Cefepime, aim for 5 day course (2) Shoulder pain Current Visit: Yes Status: Acute Assessment and Plan: concerning for PMR. ESR and CRP are mildly elevated. RF and anti-CCP IgG checked recently were negative Rheumatology input appreciated, marked improvement after steroids continue PO prednisone 60mg till Rheumatology follow up next week Pain control with when necessary Tylenol, Tramadol and oxycodone. PT/OT evaluation done today, recommended SNF and pending placement confirmation (3) Sepsis Current Visit: Yes Status: Suspected Assessment and Plan: Presented with leukocytosis and tachycardia, which could be sepsis due to UTI. Resolving on antibiotics as above. Leukocytosis likely due to high dose steroids (4) COPD (chronic obstructive pulmonary disease) Current Visit: Yes Status: Chronic Assessment and Plan: Reports a history of COPD and has been on nocturnal home oxygen in the past. However, currently she does not have inhalers/nebulizers/home oxygen. Continue when necessary breathing treatments. (5) Anxiety and depression Current Visit: Yes Status: Chronic Assessment and Plan: Resume home medications. (6) Diabetes mellitus Current Visit: Yes Status: Acute Assessment and Plan: Worsening hyperglycemia due to steroids. Will increase Levemir to 25 units twice a day and add 10U lispro TIDWM in addition to high dose sliding scale coverage (7) Hypothyroidism Current Visit: Yes Status: Chronic Assessment and Plan: resume home meds DVT Prophylaxis: SQ heparin - Time Spent with Patient Total time spent is greater than 50% in coordination of care (as documented) at patient's floor/unit and/or counseling patient: Plan of Care Discussed with: nurse Internal Medicine: Result - Labs CBC & Chem 7: 05/06/18 04:41 05/06/18 04:41 Labs: Short CBC 05/06/18 Range/Units 04:41 WBC 18.9 H (4.3-11.1) K/mcL Hgb 10.1 L D (11.5-15.4) g/dL Hct 29.7 L (35.3-44.9) % Plt Count 161 (140-400) K/mcL Neutrophils # 16.5 H (1.6-8.9) K/mcL BMP 05/06/18 04:41 Sodium 131 L Potassium 3.9 Chloride 97 L Carbon Dioxide 24 BUN 43 H Creatinine 1.11 Glucose 426 H Calcium 8.3 L Consult Discharge Plan - Plan Referrals: Aldo Alvarenga MD [Primary Care Provider] - (1) Urinary tract infection Qualifiers: Urinary tract infection type: site unspecified Hematuria presence: without hematuria Qualified Code(s): N39.0 - Urinary tract infection, site not specified (2) Shoulder pain Qualifiers: Chronicity: acute Laterality: left Qualified Code(s): M25.512 - Pain in left shoulder (3) Sepsis Qualifiers: Sepsis type: sepsis due to unspecified organism Qualified Code(s): A41.9 - Sepsis, unspecified organism (4) COPD (chronic obstructive pulmonary disease) Qualifiers: COPD type: unspecified COPD Qualified Code(s): J44.9 - Chronic obstructive pulmonary disease, unspecified (6) Diabetes mellitus Qualifiers: Diabetes mellitus type: type 2 Diabetes 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
[2018-05-06] MEDS: traZODone 50 MG TABLET PO SCH (21:05)
[2018-05-07] MEDS: Cefepime HCl 2,000 MG in Water for inj. (sterile) 20 ML 20 ML IVP SCH ×2 (05:33→18:21)
[2018-05-07] MEDS: *HR* Heparin 5,000 UNIT/ML VIAL SQ SCH ×2 (05:34→18:21)
[2018-05-07 05:40] LABS: Basophils % 0.1 %; Hematocrit 30.3 % (35.3-44.9); Hemoglobin 10.3 g/dL (11.5-15.4); Immature Granulocytes % 1.3 % (0-4); Lymphocytes # 1.3 K/mcL (0.6-4.6); Lymphocytes % 7.9 %; Mean Corpuscular Hemoglobin 29.1 pg (28.0-33.3); Mean Corpuscular Volume 85.6 fL (83.0-100.0); Mean Platelet Volume 10.3 fL (9.4-12.4); Monocytes # 0.9 K/mcL (0.0-1.3); Monocytes % 5.6 %; Neutrophils # 13.9 K/mcL (1.6-8.9); Platelet Count 171 K/mcL (140-400); Red Blood Count 3.54 M/mcL (3.82-4.97); Segmented Neutrophils % 85.1 %
[2018-05-07 05:56] LABS: BUN/Creatinine Ratio 37 (6-26); Blood Urea Nitrogen 34 mg/dL (8-23); Calcium 8.2 mg/dL (8.6-10.3); Carbon Dioxide 22 mEq/L (23-29); Chloride 107 mEq/L (98-107); Glucose 191 mg/dL (70-105); Osmolality,Calculated 297 (280-300); Potassium 3.9 mEq/L (3.5-5.1); Sodium 137 mEq/L (136-145); eGFR For Non-African Americans 57 (> 60)
[2018-05-07] MEDS ORDERED: 0.9 % Sodium Chloride 1,000 ML IVC ONE (07:41)
[2018-05-07] MEDS: Cholecalciferol (D-3) 1,000 UNIT TABLET PO SCH (09:45)
[2018-05-07] MEDS: predniSONE 20 MG TABLET PO SCH (09:46)
[2018-05-07] MEDS: Aspirin Enteric Coated 81 MG Tablet PO SCH (09:46)
[2018-05-07] MEDS: Magnesium Oxide 400 MG TABLET PO SCH (09:46)
[2018-05-07] MEDS: *HR* LORazepam 0.5 MG TABLET PO SCH ×3 (09:46→21:22)
[2018-05-07] MEDS: amLODIPine 5 MG TABLET PO SCH (09:46)
[2018-05-07] MEDS: Insulin DETEMIR 100 UNIT/ML X5UNITS SQ SCH ×2 (09:46→21:22)
[2018-05-07] MEDS: Insulin LISPRO 300 UNITS/3 ML VIAL SQ SCH ×7 (09:47→21:22)
--- NOTE | 2018-05-07 10:58 | Internal Med Progress Note ---
Hospitalist Progress Note - Encounter Date of Encounter: 05/07/18 Time of Encounter: 10:00 - Subjective Interval History: Patient has fluctuation in mood swing, initially denied any complaint then states that her "life is miserable with all the family members falling sick". Denies significant pain over her joints other than shoulder girdles. No fever/ chills or dysuria - Exam Vitals: Temp Pulse Resp BP Pulse Ox 97.2 F L 89 18 138/77 96 05/07/18 06:56 05/07/18 06:56 05/07/18 06:56 05/07/18 06:56 05/07/18 06:56 Exam: General- alert, not in distress Respiratory- clear to auscultation B/L anterolaterally CVS- S1, S2 heard; RRR; trace pedal edema Abdomen- soft, obese, nontender MSK - joint swelling noted in left hand and wrist which is improving. Both feet non-tender on palpation. Mild shoulder girdle tenderness. - Assessment and Plan (1) Urinary tract infection Current Visit: Yes Status: Acute Assessment and Plan: Urinalysis suggestive of UTI. Could be catheter-associated UTI. Urine culture grew GNR- Pseudomonas sen to cefepime and resistant to cipro/levo Afebrile, leukocytosis improving Continue D4 Cefepime, complete tomorrow (2) Shoulder pain Current Visit: Yes Status: Acute Assessment and Plan: concerning for polymyalgia rheumatica. ESR and CRP are mildly elevated. RF and anti-CCP IgG were previously negative, mildly elevated RF this time at 19 Rheumatology input appreciated, marked improvement after steroids continue PO prednisone 60mg till Rheumatology follow up next week on 05/12 Pain control with when necessary Tylenol, Tramadol and oxycodone. PT/OT, recommended SNF and pending placement confirmation (3) Diabetes mellitus Current Visit: Yes Status: Acute Assessment and Plan: hyperglycemia have been improving since yesterday PM, latest 183 Will continue Levemir 25 units twice a day Further increase lispro to 14U TIDWM, keep high dose sliding scale coverage (4) Sepsis Current Visit: Yes Status: Suspected Assessment and Plan: Presented with leukocytosis and tachycardia, which could be sepsis due to UTI. Resolving on antibiotics as above. Leukocytosis likely due to high dose steroids which is also improving (5) COPD (chronic obstructive pulmonary disease) Current Visit: Yes Status: Chronic Assessment and Plan: Reports a history of COPD and has been on nocturnal home oxygen in the past. However, currently she does not have inhalers/nebulizers/home oxygen. Continue when necessary breathing treatments. (6) Anxiety and depression Current Visit: Yes Status: Chronic Assessment and Plan: Resume home medications. She has frequent mood swing and will likely benefit from titration of SSRIs (7) Hypothyroidism Current Visit: Yes Status: Chronic Assessment and Plan: resume home meds DVT Prophylaxis: SQ heparin - Time Spent with Patient Total time spent is greater than 50% in coordination of care (as documented) at patient's floor/unit and/or counseling patient: Plan of Care Discussed with: nurse Internal Medicine: Result - Labs CBC & Chem 7: 05/07/18 05:22 05/07/18 05:22 Labs: Short CBC 05/07/18 Range/Units 05:22 WBC 16.3 H (4.3-11.1) K/mcL Hgb 10.3 L (11.5-15.4) g/dL Hct 30.3 L (35.3-44.9) % Plt Count 171 (140-400) K/mcL Neutrophils # 13.9 H (1.6-8.9) K/mcL BMP 05/07/18 05:22 Sodium 137 Potassium 3.9 Chloride 107 Carbon Dioxide 22 L BUN 34 H Creatinine 0.93 Glucose 191 H Calcium 8.2 L Consult Discharge Plan - Plan Referrals: Aldo Alvarenga MD [Primary Care Provider] - (1) Urinary tract infection Qualifiers: Urinary tract infection type: site unspecified Hematuria presence: without hematuria Qualified Code(s): N39.0 - Urinary tract infection, site not specified (2) Shoulder pain Qualifiers: Chronicity: acute Laterality: left Qualified Code(s): M25.512 - Pain in left shoulder (3) Diabetes mellitus Qualifiers: Diabetes mellitus type: type 2 Diabetes mellitus longterm insulin use: without recruiter account manager use Diabetes mellitus complication status: with unspecified complications Qualified Code(s): E11.8 - Type 2 diabetes mellitus with unspecified complications (4) Sepsis Qualifiers: Sepsis type: sepsis due to unspecified organism Qualified Code(s): A41.9 - Sepsis, unspecified organism (5) COPD (chronic obstructive pulmonary disease) Qualifiers: COPD type: unspecified COPD Qualified Code(s): J44.9 - Chronic obstructive pulmonary disease, unspecified (7) Hypothyroidism Qualifiers: Hypothyroidism type: unspecified Qualified Code(s): E03.9 - Hypothyroidism, unspecified
[2018-05-07] MEDS: traZODone 50 MG TABLET PO SCH (21:22)
[2018-05-07] MEDS: *HR* OxyCODONE Immed Rel 5 MG TABLET PO PRN (21:34)
[2018-05-08] MEDS: *HR* Heparin 5,000 UNIT/ML VIAL SQ SCH (05:51)
[2018-05-08] MEDS: Cefepime HCl 2,000 MG in Water for inj. (sterile) 20 ML 20 ML IVP SCH (05:53)
--- NOTE | 2018-05-08 10:43 | Internal Med Progress Note ---
Hospitalist Progress Note - Encounter Date of Encounter: 05/08/18 Time of Encounter: 09:55 - Subjective Interval History: Seems to be in better spirit today knowing that her family member will be visiting her later. Denies significant pain over her joints and moving her shoulders much better today. No fever/chills, headache or blurring of vision. - Exam Vitals: Temp Pulse Resp BP Pulse Ox 98.0 F 87 16 145/92 97 05/08/18 10:03 05/08/18 10:03 05/08/18 10:03 05/08/18 10:03 05/08/18 10:03 Exam: General- alert, not in distress Respiratory- clear to auscultation B/L anterolaterally CVS- S1, S2 heard; RRR; trace pedal edema Abdomen- soft, obese, nontender MSK - joint swelling noted in left hand and wrist which is improving. Both feet non-tender on palpation. Mild shoulder girdle tenderness. - Assessment and Plan (1) Urinary tract infection Current Visit: Yes Status: Acute Assessment and Plan: Urinalysis suggestive of UTI. Could be catheter-associated UTI. Urine culture grew GNR- Pseudomonas sen to cefepime and resistant to cipro/levo Afebrile, leukocytosis improving complete Cefepime today (2) Shoulder pain Current Visit: Yes Status: Acute Assessment and Plan: concerning for polymyalgia rheumatica. ESR and CRP are mildly elevated. RF and anti-CCP IgG were previously negative, mildly elevated RF this time at 19 Rheumatology input appreciated, marked improvement after steroids continue PO prednisone 60mg till Rheumatology follow up next week on 05/12 Pain control with when necessary Tylenol, Tramadol and oxycodone. PT/OT, recommended SNF and pending placement confirmation tomorrow (3) Diabetes mellitus Current Visit: Yes Status: Acute Assessment and Plan: improving, 183 - 264 - 169 - 149 continue current regime of Levemir 25 units twice a day, lispro 14U TIDWM, and high dose sliding scale coverage (4) Sepsis Current Visit: Yes Status: Suspected Assessment and Plan: Presented with leukocytosis and tachycardia, which could be sepsis due to UTI. Resolving on antibiotics as above. Leukocytosis likely due to high dose steroids which is also improving complete abx today (5) COPD (chronic obstructive pulmonary disease) Current Visit: Yes Status: Chronic Assessment and Plan: Reports a history of COPD and has been on nocturnal home oxygen in the past. However, currently she does not have inhalers/nebulizers/home oxygen. Continue when necessary breathing treatments. (6) Anxiety and depression Current Visit: Yes Status: Chronic Assessment and Plan: Resume home medications. She has frequent mood swing and will likely benefit from titration of SSRIs (7) Hypothyroidism Current Visit: Yes Status: Chronic Assessment and Plan: resume home meds DVT Prophylaxis: switching to lovenox which would be once a day dosing as patient has needle phobia - Time Spent with Patient Total time spent is greater than 50% in coordination of care (as documented) at patient's floor/unit and/or counseling patient: Plan of Care Discussed with: nurse Internal Medicine: Result - Labs CBC & Chem 7: 05/07/18 05:22 05/07/18 05:22 Consult Discharge Plan - Plan Referrals: Aldo Alvarenga MD [Primary Care Provider] - (1) Urinary tract infection Qualifiers: Urinary tract infection type: site unspecified Hematuria presence: without hematuria Qualified Code(s): N39.0 - Urinary tract infection, site not specified (2) Shoulder pain Qualifiers: Chronicity: acute Laterality: left Qualified Code(s): M25.512 - Pain in left shoulder (3) Diabetes mellitus Qualifiers: Diabetes mellitus type: type 2 Diabetes mellitus usp insulin use: without usp use Diabetes mellitus complication status: with unspecified complications Qualified Code(s): E11.8 - Type 2 diabetes mellitus with unspecified complications (4) Sepsis Qualifiers: Sepsis type: sepsis due to unspecified organism Qualified Code(s): A41.9 - Sepsis, unspecified organism (5) COPD (chronic obstructive pulmonary disease) Qualifiers: COPD type: unspecified COPD Qualified Code(s): J44.9 - Chronic obstructive pulmonary disease, unspecified (7) Hypothyroidism Qualifiers: Hypothyroidism type: unspecified Qualified Code(s): E03.9 - Hypothyroidism, unspecified
[2018-05-08] MEDS: amLODIPine 5 MG TABLET PO SCH (10:44)
[2018-05-08] MEDS: Cholecalciferol (D-3) 1,000 UNIT TABLET PO SCH (10:44)
[2018-05-08] MEDS: Magnesium Oxide 400 MG TABLET PO SCH (10:44)
[2018-05-08] MEDS: predniSONE 20 MG TABLET PO SCH (10:44)
[2018-05-08] MEDS: Aspirin Enteric Coated 81 MG Tablet PO SCH (10:45)
[2018-05-08] MEDS: *HR* LORazepam 0.5 MG TABLET PO SCH ×3 (10:45→21:14)
[2018-05-08] MEDS: *HR* OxyCODONE Immed Rel 5 MG TABLET PO PRN ×2 (10:47→21:11)
[2018-05-08] MEDS: Insulin LISPRO 300 UNITS/3 ML VIAL SQ SCH ×7 (10:58→21:12)
[2018-05-08] MEDS: Insulin DETEMIR 100 UNIT/ML X5UNITS SQ SCH ×2 (13:10→21:11)
[2018-05-08] MEDS: traZODone 50 MG TABLET PO SCH (21:15)
[2018-05-09 01:44] LABS: Basophils % 0.1 %; Hemoglobin 10.2 g/dL (11.5-15.4); Immature Granulocytes % 0.8 % (0-4); Lymphocytes % 9.4 %; Mean Corpuscular HGB Conc 32.9 g/dL (31.6-35.5); Mean Corpuscular Hemoglobin 27.9 pg (28.0-33.3); Mean Corpuscular Volume 84.9 fL (83.0-100.0); Mean Platelet Volume 9.7 fL (9.4-12.4); Monocytes # 0.7 K/mcL (0.0-1.3); Monocytes % 6.7 %; Neutrophils # 8.9 K/mcL (1.6-8.9); Platelet Count 190 K/mcL (140-400); Red Blood Count 3.65 M/mcL (3.82-4.97); Red Cell Distribution Width 13.2 % (11.5-14.5)
[2018-05-09 02:04] LABS: BUN/Creatinine Ratio 34 (6-26); Blood Urea Nitrogen 32 mg/dL (8-23); Calcium 8.5 mg/dL (8.6-10.3); Carbon Dioxide 26 mEq/L (23-29); Chloride 103 mEq/L (98-107); Glucose 169 mg/dL (70-105); Osmolality,Calculated 291 (280-300); Potassium 4.2 mEq/L (3.5-5.1); Sodium 135 mEq/L (136-145); eGFR For Non-African Americans 57 (> 60)
[2018-05-09] MEDS ORDERED: *HR* Enoxaparin 40 MG/0.4 ML SYRINGE SQ SCH (06:00)
[2018-05-09] MEDS: *HR* Enoxaparin 30 MG/0.3 ML SYRINGE SQ SCH (06:23)
[2018-05-09] MEDS: *HR* OxyCODONE Immed Rel 5 MG TABLET PO PRN ×2 (06:26→14:12)
[2018-05-09] MEDS: Insulin LISPRO 300 UNITS/3 ML VIAL SQ SCH ×6 (08:49→16:37)
[2018-05-09] MEDS: predniSONE 20 MG TABLET PO SCH (09:32)
[2018-05-09] MEDS: Magnesium Oxide 400 MG TABLET PO SCH (09:32)
[2018-05-09] MEDS: Aspirin Enteric Coated 81 MG Tablet PO SCH (09:32)
[2018-05-09] MEDS: amLODIPine 5 MG TABLET PO SCH (09:33)
[2018-05-09] MEDS: Insulin DETEMIR 100 UNIT/ML X5UNITS SQ SCH ×2 (09:33→22:20)
[2018-05-09] MEDS: *HR* LORazepam 0.5 MG TABLET PO SCH ×3 (09:33→22:18)
[2018-05-09] MEDS: Cholecalciferol (D-3) 1,000 UNIT TABLET PO SCH (09:36)
--- NOTE | 2018-05-09 10:36 | Rheumatology Progress Note ---
<Iggy Hernandez - Last Filed: 05/09/18 11:47> Date of Encounter: 05/09/18 Time of Encounter: 10:00 Rheumatology Assess and Plan (1) Polyarthralgia Current Visit: Yes Status: Acute - Acute in onset. - Patient reports worsening of symptoms however compared to previous note she appears to have greatly improved ROM and strength - She is currently on Prednisone 60mg and has a follow up appointment on with Dr. Foster - Signs and symptoms do clinically point to PMR - ESR 66, CRP 210. (ESR previously elevated at in 40-60s) - RF 19, mildly elevated Plan - Continue prednisone at current dose until appointment with Dr. Foster on - Unlikely GCA component at this time. Patient is refusing any further biopsies. No temporal tenderness on exam. Neck stiffness and pain appears to be more MSK related. (2) Shoulder pain Current Visit: Yes Status: Acute As above Qualifiers: Chronicity: acute Laterality: bilateral Qualified Code(s): M25.511 - Pain in right shoulder; M25.512 - Pain in left shoulder (3) Elevated C-reactive protein Current Visit: Yes Status: Acute - Likely secondary to PMR however patient is alos noted to have a UTI on this admission - Management as above - Subjective Interval history: Ms. Fonseca was seen and examined this morning at bedside. She states that she feels "Terrible" this morning. She elaborates by saying she wants to go home and that nobody is doing anything for her. She still has complaints of bilateral shoulder pain, posterior neck pain. She thinks it may be worse than previous as she is unable to move around in bed without assistance. She denies any fevers or chills but states she breaks out in a sweat. Her pain is worse in the morning but never goes away and she is unsure how long it takes for her shoulders to loosen up. She denies changes in vision but states that its hard to tell given her chronic poor eyesight. She denies holiness tenderness, describing her neck pain as posterior with some occipital involvement. Exam Vital Signs, Last 4 Hours Temp Pulse Resp BP Pulse Ox 05/09/18 07:45 98 F 74 15 163/85 97 Exam: Gen.: Vitals noted. No acute distress. AAOx3 HEENT: PERRL/EOMI, oropharynx clear, Normocephalic, atraumatic, MMM. No tenderness to temporal palpation Cardiac: RRR, no murmur, +S1/S2 Pulmonary: CTA bilaterally, no wheezes, rales or rhonchi, equal chest expansion MSK: ROM intact, Muscle strength 4/5 in bilateral hands, 5/5 in shoulder and arms. Some swelling of DIP, PIP joints. Extremities: no BLE edema, nontender calf, no cyanosis or clubbing Neuro: A&Ox3, moves all extremities, no focal deficits Psych: Appropriate mood and behavior Objective Data 05/09/18 01:32 05/09/18 01:32 Immunology Rheumatoid Factor 19 IU/mL (Less than 14) H 05/05/18 14:26 Cycl Citrul Peptide IgG 2 Units (0-19) 05/05/18 14:26 All other labs normal. Consult Discharge Plan - Plan Referrals: Aldo Alvarenga MD [Primary Care Provider] - <Walter Foster W - Last Filed: 05/09/18 12:45> Date of Encounter: 05/09/18 Exam Vital Signs, Last 4 Hours Temp Pulse Resp BP Pulse Ox 05/09/18 11:17 97.9 F 86 15 126/54 96 Objective Data 05/09/18 01:32 05/09/18 01:32 Immunology Rheumatoid Factor 19 IU/mL (Less than 14) H 05/05/18 14:26 Cycl Citrul Peptide IgG 2 Units (0-19) 05/05/18 14:26 All other labs normal. - Attending Attestation I examined this patient and my medical decision making was reviewed with the resident physician. I agree with the documented findings, disposition and treatment as described with these exceptions. Mitzi continues to improve. She has full ROM of extremities, no peripheral effusions or joint swelling today. Reports posterior neck pain but that this is chronic and unchanged with other symptoms and no resolution with prednisone. At this time, my suspicion is that Mitzi has polymyalgia rheumatica and would require a prolonged prednisone taper. I discussed my concerns with the patient and her ; they are in agreement that she may have the condition. She and her are both adament that she not take any further prednisone for concerns over diabetes. I did try to reassure that we can treat the diabetes if prednisone is needed. They want her off of the prednisone and if her condition flares, they will consider treatment at that time. I did discuss that while I think it is PMR, I did wonder if she had features of GCA but she declines any procedures and she accepts risks of not accepting prednisone. At the conclusion of our visit, they were willing to follow-up in my office but in 10-14 days to see if symptoms manifest. Will call to set up appt.
--- NOTE | 2018-05-09 12:50 | Internal Med Progress Note ---
Hospitalist Progress Note - Encounter Date of Encounter: 05/09/18 Time of Encounter: 11:00 - Subjective Interval History: Denies significant pain over her joints and shoulder pain also improving. No fever/chills, headache or blurring of vision. - Exam Vitals: Temp Pulse Resp BP Pulse Ox 97.9 F 86 15 126/54 96 05/09/18 11:17 05/09/18 11:17 05/09/18 11:17 05/09/18 11:17 05/09/18 11:17 Exam: General- alert, not in distress Respiratory- clear to auscultation B/L anterolaterally CVS- S1, S2 heard; RRR; trace pedal edema Abdomen- soft, obese, nontender MSK - joint swelling noted in left hand and wrist which is improving. Both feet non-tender on palpation. Mild shoulder girdle tenderness. - Assessment and Plan (1) Urinary tract infection Current Visit: Yes Status: Acute Assessment and Plan: Urinalysis suggestive of UTI. Could be catheter-associated UTI. Urine culture grew GNR- Pseudomonas sen to cefepime and resistant to cipro/levo Afebrile, leukocytosis improving completed Cefepime yesterday (2) Shoulder pain Current Visit: Yes Status: Acute Assessment and Plan: concerning for polymyalgia rheumatica. ESR and CRP are mildly elevated. RF and anti-CCP IgG were previously negative, mildly elevated RF this time at 19 Rheumatology input appreciated, marked improvement after steroids continue PO prednisone 60mg till Rheumatology follow up next week on 05/12 Pain control with when necessary Tylenol, Tramadol and oxycodone. PT/OT, recommended SNF and pending placement confirmation tomorrow (3) Diabetes mellitus Current Visit: Yes Status: Acute Assessment and Plan: improving, 149 - 133 - 111 - 232 - 92 - 141 continue current regime of Levemir 25 units twice a day, lispro 14U TIDWM, decreased to moderate dose sliding scale coverage (4) Sepsis Current Visit: Yes Status: Suspected Assessment and Plan: Presented with leukocytosis and tachycardia, which could be sepsis due to UTI. Resolving on antibiotics as above. Leukocytosis likely due to high dose steroids which is also improving completed abx yesterday (5) COPD (chronic obstructive pulmonary disease) Current Visit: Yes Status: Chronic Assessment and Plan: Reports a history of COPD and has been on nocturnal home oxygen in the past. However, currently she does not have inhalers/nebulizers/home oxygen. Continue when necessary breathing treatments. (6) Anxiety and depression Current Visit: Yes Status: Chronic Assessment and Plan: Resume home medications. She has frequent mood swing and will likely benefit from titration of SSRIs (7) Hypothyroidism Current Visit: Yes Status: Chronic Assessment and Plan: resume home meds - Time Spent with Patient Total time spent is greater than 50% in coordination of care (as documented) at patient's floor/unit and/or counseling patient: Plan of Care Discussed with: nurse (also discussed with case management) Internal Medicine: Result - Labs CBC & Chem 7: 05/09/18 01:32 05/09/18 01:32 Labs: Short CBC 05/09/18 Range/Units 01:32 WBC 10.7 (4.3-11.1) K/mcL Hgb 10.2 L (11.5-15.4) g/dL Hct 31.0 L (35.3-44.9) % Plt Count 190 (140-400) K/mcL Neutrophils # 8.9 (1.6-8.9) K/mcL BMP 05/09/18 01:32 Sodium 135 L Potassium 4.2 Chloride 103 Carbon Dioxide 26 BUN 32 H Creatinine 0.93 Glucose 169 H Calcium 8.5 L Consult Discharge Plan - Plan Referrals: Aldo Alvarenga MD [Primary Care Provider] - (1) Urinary tract infection Qualifiers: Urinary tract infection type: site unspecified Hematuria presence: without hematuria Qualified Code(s): N39.0 - Urinary tract infection, site not specified (2) Shoulder pain Qualifiers: Chronicity: acute Laterality: bilateral Qualified Code(s): M25.511 - Pain in right shoulder; M25.512 - Pain in left shoulder (3) Diabetes mellitus Qualifiers: Diabetes mellitus type: type 2 Diabetes mellitus moth exterminator insulin use: without moth exterminator use Diabetes mellitus complication status: with unspecified complications Qualified Code(s): E11.8 - Type 2 diabetes mellitus with unspecified complications (4) Sepsis Qualifiers: Sepsis type: sepsis due to unspecified organism Qualified Code(s): A41.9 - Sepsis, unspecified organism (5) COPD (chronic obstructive pulmonary disease) Qualifiers: COPD type: unspecified COPD Qualified Code(s): J44.9 - Chronic obstructive pulmonary disease, unspecified (7) Hypothyroidism Qualifiers: Hypothyroidism type: unspecified Qualified Code(s): E03.9 - Hypothyroidism, unspecified
[2018-05-09] MEDS: traZODone 50 MG TABLET PO SCH (22:19)
[2018-05-10] MEDS: *HR* Enoxaparin 30 MG/0.3 ML SYRINGE SQ SCH (06:25)
[2018-05-10] MEDS: *HR* OxyCODONE Immed Rel 5 MG TABLET PO PRN ×2 (09:08→15:37)
[2018-05-10] MEDS: amLODIPine 5 MG TABLET PO SCH (09:08)
[2018-05-10] MEDS: *HR* LORazepam 0.5 MG TABLET PO SCH ×2 (09:08→15:37)
[2018-05-10] MEDS: predniSONE 20 MG TABLET PO SCH (09:08)
[2018-05-10] MEDS: Magnesium Oxide 400 MG TABLET PO SCH (09:09)
[2018-05-10] MEDS: Aspirin Enteric Coated 81 MG Tablet PO SCH (09:09)
[2018-05-10] MEDS: Cholecalciferol (D-3) 1,000 UNIT TABLET PO SCH (09:09)
[2018-05-10] MEDS: Insulin LISPRO 300 UNITS/3 ML VIAL SQ SCH ×4 (09:10→12:27)
[2018-05-10] MEDS: Insulin DETEMIR 100 UNIT/ML X5UNITS SQ SCH (09:19)
--- NOTE | 2018-05-10 12:15 | Discharge Summary ---
- NOTES TO OUTPATIENT PROVIDER Notes to Outpatient Provider: Patient was admitted for polymyalgia rheumatica and UTI. Urine culture grew Pseudomonas sensitive to cefepime hence she completed a five-day course of abx. For her PMR, rheumatology was consulted and was recommended to start oral prednisone 60 mg daily. She did have dramatic improvement in her movement of the shoulder girdles however refused to take further doses as she did not think it helped her much and it only worsened her blood glucose. After discussing with the tube washer, it was decided to monitor off steroid and follow up in office 10-14 days to see if symptoms manifest again. Given her deconditioning, she is discharged to [facility]. Her chronic smith was exchanged before she was sent to [facility]. Date of Encounter: 05/10/18 Time of Encounter: 10:30 - Discharge Diagnosis (1) Urinary tract infection Priority: Primary Status: Acute Qualifiers: Urinary tract infection type: site unspecified Hematuria presence: without hematuria Qualified Code(s): N39.0 - Urinary tract infection, site not specified (2) Shoulder pain Priority: Secondary Status: Acute Qualifiers: Chronicity: acute Laterality: bilateral Qualified Code(s): M25.511 - Pain in right shoulder; M25.512 - Pain in left shoulder (3) Diabetes mellitus Priority: Secondary Status: Acute Qualifiers: Diabetes mellitus type: type 2 Diabetes mellitus usp insulin use: without watermelon inspector use Diabetes mellitus complication status: with unspecified complications Qualified Code(s): E11.8 - Type 2 diabetes mellitus with unspecified complications (4) Sepsis Priority: Secondary Status: Suspected Qualifiers: Sepsis type: sepsis due to unspecified organism Qualified Code(s): A41.9 - Sepsis, unspecified organism (5) COPD (chronic obstructive pulmonary disease) Priority: Secondary Status: Chronic Qualifiers: COPD type: unspecified COPD Qualified Code(s): J44.9 - Chronic obstructive pulmonary disease, unspecified (6) Anxiety and depression Priority: Secondary Status: Chronic (7) Hypothyroidism Priority: Secondary Status: Chronic Qualifiers: Hypothyroidism type: unspecified Qualified Code(s): E03.9 - Hypothyroidism , unspecified Hospital course: Ms. Fonseca is a 87 year old female was admitted for polymyalgia rheumatica and UTI. Urine culture grew Pseudomonas sensitive to cefepime hence she completed a five-day course of abx. For her PMR, rheumatology was consulted and was recommended to start oral prednisone 60 mg daily. She did have dramatic improvement in her movement of the shoulder girdles however refused to take further doses as she did not think it helped her much and it only worsened her blood glucose. After discussing with the tube washer, it was decided to monitor off steroid and follow up in office 10-14 days to see if symptoms manifest again. Given her deconditioning, she is discharged to [facility]. Her chronic smith was exchanged before she was sent to [facility]. Discharge discussed with: patient, nurse, social work - Time Spent with Patient Total time spent providing and/or coordinating discharge services: Greater than 30 minutes - Discharge Medications Home Medications: Aspirin Enteric Coated [Aspirin EC] 81 mg PO DAILY 12/31/16 [History] Calcium Crb,Cit/D3/Min34/Antonio [Citracal + Bone Density Tablet] 1 each PO DAILY 12/31/16 [History] Ergocalciferol (VITAMIN D2) [Vitamin D2] 50,000 unit PO QWEEK 12/31/16 [History] Gluc Quan/Chondro Quan A/Vit C/Mn [Glucosamine Chondroitin Tab] 1 each PO DAILY [History] Lansoprazole [Prevacid] 30 mg PO DAILY 12/31/16 [History] Metformin HCl [Glucophage] 1,000 mg PO BID 12/31/16 [History] Triamterene/HCTZ 37.5/25mg [Dyazide] 1 tab PO DAILY 12/31/16 [History] amLODIPine [Norvasc] 5 mg PO DAILY 12/31/16 [History] Oxybutynin [Ditropan] 5 mg PO BID 11/11/17 [History] Trazodone HCl 150 mg PO HS 11/15/17 [History] LORazepam [Ativan] 0.5 mg PO TID 5 Days #15 tablet 11/16/17 [Rx] Magnesium Oxide [Magnesium] 400 mg PO DAILY 03/07/18 [History] Escitalopram [Lexapro] 30 mg PO DAILY 05/03/18 [History] HYDROcodone/Acet 5/325 mg [[place] 5-325 mg] 1 tab PO BID PRN 05/03/18 [History] Allergies/Adverse Reactions: 3 Allergy/AdvReac Type Severity Reaction Status Date / Time bacitracin Allergy Blister Verified 07/23/15 16:34 [From Neosporin ([id number])] brompheniramine Allergy See Verified 07/23/15 16:34 [From Drixoral] Comments ciprofloxacin [From Cipro] Allergy See Verified 05/03/18 12:34 Comments codeine Allergy Rash Verified 07/23/15 16:34 Cyclobenzaprine Allergy Fatigued Verified 07/23/15 16:34 [From Flexeril] dexbrompheniramine Allergy See Verified 07/23/15 16:34 [From Drixoral] Comments egg Allergy Swelling Verified 05/05/18 16:23 of Lip/Tongue/Throat Erythromycin Base Allergy Rash Verified 07/23/15 16:34 [From Erythrocin] Neomycin Allergy Blister Verified 07/23/15 16:34 [From Neosporin ([id number])] Penicillins [PCN] Allergy Rash Verified 07/23/15 16:34 polymyxin B Allergy Blister Verified 07/23/15 16:34 [From Neosporin ([id number])] pseudoephedrine Allergy See Verified 07/23/15 16:34 [From Drixoral] Comments trospium Allergy Swelling Verified 07/23/15 16:34 of Lip/Tongue/Throat mirtazapine [From Remeron] AdvReac Shakiness Verified 05/03/18 12:34 prednisone AdvReac Anxiety Verified 05/03/18 12:34 rosuvastatin [From Crestor] AdvReac Muscle Pain Verified 05/03/18 12:34 Date of admission: 05/03/18 14:06 Primary care physician: Aldo Alvarenga MD Consults: 05/04/18 15:30 Consult to Occupational Therapy [CONS] Routine Comment: Evaluate, develop and implement POC Reason for Consult: eval for poss ecf Does patient have active BEDREST order?: No Is patient medically & hemodynamically stable?: Yes Consult to Physical Therapy [CONS] Routine Comment: Evaluate, develop and implement POC Reason for Consult: eval for poss ecf Does patient have active BEDREST order?: No Is patient medically & hemodynamically stable?: Yes 05/04/18 17:20 Consult to Rheumatology [CONS] Routine Consulting Provider: Walter Foster Reason for Consult: Acute flareup of inflammatory arthritis Call Completed: Yes 05/09/18 09:39 Consult to Leather Roller [CONS] Routine Reason for SW Consult: pt needs ECF 05/10/18 10:30 Consult to Urology [CONS] Routine Consulting Provider: Urology Karyn Reason for Consult: chronic smith, follows with Dr. Forde. Leaking around the catheter Call Completed: Yes - Constitutional Vitals: Temp Pulse Resp BP Pulse Ox 98.0 F 76 17 118/78 96 05/10/18 12:01 05/10/18 12:01 05/10/18 12:01 05/10/18 12:01 05/10/18 12:01 General appearance: Present: mild distress, A&O X 3, answers questions appropriately Exam: General- alert, not in distress Respiratory- clear to auscultation B/L anterolaterally CVS- S1, S2 heard; RRR; trace pedal edema Abdomen- soft, obese, nontender MSK - joint swelling noted in left hand and wrist which is improving. Both feet non-tender on palpation. Mild shoulder girdle tenderness. - Patient Status Disposition: Transfer SNF Condition: Fair Overall status at discharge: patient is progressing back to baseline - Discharge Instructions Instructions: Diabetes Mellitus Type 2 in Adults (DC), Urinary Tract Infection in Women (DC), Chronic Obstructive Pulmonary Disease (DC), Anxiety (DC), Hypothyroidism (DC) Follow Up With: Aldo Alvarenga MD [Primary Care Provider] - ([facility] - Diet and Activity Activity: as per physical therapy Diet: diabetic diet
--- NOTE | 2018-05-10 12:19 | Physician Discharge Referral ---
ExtendedCare Referral Info Transfer To: [facility] Institutional Level of Care: Skilled - Diagnosis (1) Urinary tract infection Priority: Primary Status: Acute (2) Shoulder pain Priority: Secondary Status: Acute (3) Diabetes mellitus Priority: Secondary Status: Acute (4) Sepsis Priority: Secondary Status: Suspected (5) COPD (chronic obstructive pulmonary disease) Priority: Secondary Status: Chronic (6) Anxiety and depression Priority: Secondary Status: Chronic (7) Hypothyroidism Priority: Secondary Status: Chronic - Transfer Medications Home Medications: Aspirin Enteric Coated [Aspirin EC] 81 mg PO DAILY 12/31/16 [History] Calcium Crb,Cit/D3/Min34/Antonio [Citracal + Bone Density Tablet] 1 each PO DAILY 12/31/16 [History] Ergocalciferol (VITAMIN D2) [Vitamin D2] 50,000 unit PO QWEEK 12/31/16 [History] Gluc Quan/Chondro Quan A/Vit C/Mn [Glucosamine Chondroitin Tab] 1 each PO DAILY [History] Lansoprazole [Prevacid] 30 mg PO DAILY 12/31/16 [History] Metformin HCl [Glucophage] 1,000 mg PO BID 12/31/16 [History] Triamterene/HCTZ 37.5/25mg [Dyazide] 1 tab PO DAILY 12/31/16 [History] amLODIPine [Norvasc] 5 mg PO DAILY 12/31/16 [History] Oxybutynin [Ditropan] 5 mg PO BID 11/11/17 [History] Trazodone HCl 150 mg PO HS 11/15/17 [History] LORazepam [Ativan] 0.5 mg PO TID 5 Days #15 tablet 11/16/17 [Rx] Magnesium Oxide [Magnesium] 400 mg PO DAILY 03/07/18 [History] Escitalopram [Lexapro] 30 mg PO DAILY 05/03/18 [History] HYDROcodone/Acet 5/325 mg [[place] 5-325 mg] 1 tab PO BID PRN 05/03/18 [History] Allergies/Adverse Reactions: 3 Allergy/AdvReac Type Severity Reaction Status Date / Time bacitracin Allergy Blister Verified 07/23/15 16:34 [From Neosporin ([id number])] brompheniramine Allergy See Verified 07/23/15 16:34 [From Drixoral] Comments ciprofloxacin [From Cipro] Allergy See Verified 05/03/18 12:34 Comments codeine Allergy Rash Verified 07/23/15 16:34 Cyclobenzaprine Allergy Fatigued Verified 07/23/15 16:34 [From Flexeril] dexbrompheniramine Allergy See Verified 07/23/15 16:34 [From Drixoral] Comments egg Allergy Swelling Verified 05/05/18 16:23 of Lip/Tongue/Throat Erythromycin Base Allergy Rash Verified 07/23/15 16:34 [From Erythrocin] Neomycin Allergy Blister Verified 07/23/15 16:34 [From Neosporin ([id number])] Penicillins [PCN] Allergy Rash Verified 07/23/15 16:34 polymyxin B Allergy Blister Verified 07/23/15 16:34 [From Neosporin ([id number])] pseudoephedrine Allergy See Verified 07/23/15 16:34 [From Drixoral] Comments trospium Allergy Swelling Verified 07/23/15 16:34 of Lip/Tongue/Throat mirtazapine [From Remeron] AdvReac Shakiness Verified 05/03/18 12:34 prednisone AdvReac Anxiety Verified 05/03/18 12:34 rosuvastatin [From Crestor] AdvReac Muscle Pain Verified 05/03/18 12:34 - Respiratory Orders Smoking Cessation: Smoking cessation has been advised. For more information, call the [place] Tobacco Quit Line at 2-038-APYH-NOW. - Mobility Orders Ambulate - Rehabiliation Orders Rehab Orders: Evaluation for Physical Therapy, Evaluation for Occupational Therapy - Diet Orders No Concentrated Sweets CERTIFICATION: I certify that the transfer of the above named patient to an Extended Care Facility is necessary for the continuing treatment of the diagnosis listed. The above information is true and accurate reflection of patient's current condition. Confidential - Redisclosure prohibited without a patient's written consent.
[2018-05-10 16:01] VITALS: BP 116/73
== END 2018-05-10 18:12 | DRG 698 ==
LOC: 2ANU 09:23 → EMEROOARM 09:23 → SUATTDRO 14:06 → 2ANU 15:16
PROVIDERS: ADMIT Internal Medicine; ATTEND Internal Medicine

== ENCOUNTER 2018-11-02 15:37 | Observation (INO) ==
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
[2018-11-02 18:03] LABS: Basophils % 0.2 %; Eosinophils # 0.1 K/mcL (0.0-0.6); Eosinophils % 1.5 %; Hematocrit 30.2 % (35.3-44.9); Hemoglobin 10.5 g/dL (11.5-15.4); Immature Granulocytes % 0.7 % (0-4); Lymphocytes # 2.2 K/mcL (0.6-4.6); Lymphocytes % 27.4 %; Mean Corpuscular HGB Conc 34.8 g/dL (31.6-35.5); Mean Corpuscular Hemoglobin 30.4 pg (28.0-33.3); Mean Corpuscular Volume 87.5 fL (83.0-100.0); Mean Platelet Volume 9.6 fL (9.4-12.4); Monocytes # 0.7 K/mcL (0.0-1.3); Monocytes % 8.6 %; Platelet Count 171 K/mcL (140-400); Red Blood Count 3.45 M/mcL (3.82-4.97); Segmented Neutrophils % 61.6 %
[2018-11-02 18:25] LABS: Alanine Aminotransferase 11 Units/L (7-52); Albumin 3.5 g/dL (3.5-5.7); Albumin/Globulin Ratio 1.5 (1.1-2.2); Alkaline Phosphatase 55 Units/L (34-104); Aspartate Amino Transferase 12 Units/L (13-39); BUN/Creatinine Ratio 15 (6-26); Bilirubin,Total 0.5 mg/dL (0.3-1.0); Blood Urea Nitrogen 16 mg/dL (8-23); Calcium 9.1 mg/dL (8.6-10.3); Carbon Dioxide 22 mEq/L (23-29); Chloride 98 mEq/L (98-107); Globulin 2.3 g/dL (2.4-3.5); Glucose 126 mg/dL (70-105); Lipase 29 Units/L (11-82); Osmolality,Calculated 277 (280-300); Potassium 3.8 mEq/L (3.5-5.1); Sodium 132 mEq/L (136-145); Total Protein 5.8 g/dL (6.4-8.9); Troponin I < 0.03 ng/mL (< 0.04); eGFR For Non-African Americans 47 (> 60)
[2018-11-02] MEDS ORDERED: Dicyclomine 20 MG/2 ML AMPUL IM STA (18:37)
[2018-11-02] MEDS ORDERED: Hyoscyamine 0.5 MG/ML MLS IVP ONE (18:52)
[2018-11-02 18:54] LABS: Bilirubin,Urine Negative (Negative); Blood,Urine Negative (Negative); Clarity,Urine Clear (Clear); Color,Urine Yellow (Yellow); Glucose,Urine (UA) Normal (Normal); Ketones,Urine Negative (Negative); Leukocyte Esterase,Urine Moderate (Negative); Nitrite,Urine Negative (Negative); Protein,Urine Negative (Neg-Trace); Specific Gravity,Urine 1.014 (1.010-1.025); Urobilinogen,Urine Normal (Normal)
[2018-11-02 18:58] LABS: Bacteria,Urine None Seen per hpf (None-Few); Hyaline Casts,Urine None Seen per lpf (None-Few); Squamous Epithelial Cell,Urine Few per lpf (None-Few)
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
[2018-11-02] MEDS ORDERED: Acetaminophen 325 MG TABLET PO PRN (22:51)
[2018-11-02] MEDS ORDERED: Naloxone 0.4 MG/ML INJ IVP PRN (22:51)
[2018-11-02] MEDS ORDERED: Dextrose 4 GM Chewable Tablets PO PRN ×2 (22:51)
[2018-11-02] MEDS ORDERED: *HR* Dextrose 50 % in Water (Syg) 50 ML SYRINGE IVP PRN (22:51)
[2018-11-02] MEDS ORDERED: D5% in Water 1,000 ML IVC PRN (22:51)
[2018-11-02] MEDS ORDERED: Dextrose Gel 15 GM/37.5 ML TUBE PO PRN ×2 (22:51)
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
[2018-11-02] MEDS ORDERED: hydrOXYzine pamoate 25 MG CAPSULE PO PRN (23:39)
[2018-11-02] MEDS: Sulfamethoxazole/Trimeth DS 1 EACH TABLET PO SCH (23:41)
[2018-11-03] MEDS: *HR* LORazepam 0.5 MG TABLET PO PRN ×3 (00:05→20:46)
[2018-11-03] MEDS: traZODone 50 MG TABLET PO PRN ×2 (00:05→20:45)
[2018-11-03] MEDS: 0.9 % Sodium Chloride w KCl 20 MEQ/1,000 ML MLS IVC SCH ×2 (00:07→13:10)
[2018-11-03] MEDS: *HR* HYDROcodone/Acet 5/325 mg TABLET PO PRN ×2 (02:09→13:10)
[2018-11-03 03:44] LABS: Basophils % 0.4 %; Eosinophils # 0.2 K/mcL (0.0-0.6); Eosinophils % 1.8 %; Hematocrit 30.7 % (35.3-44.9); Hemoglobin 10.4 g/dL (11.5-15.4); Immature Granulocytes % 0.6 % (0-4); Lymphocytes # 2.1 K/mcL (0.6-4.6); Lymphocytes % 24.9 %; Mean Corpuscular HGB Conc 33.9 g/dL (31.6-35.5); Mean Corpuscular Hemoglobin 30.5 pg (28.0-33.3); Mean Platelet Volume 9.7 fL (9.4-12.4); Monocytes # 0.7 K/mcL (0.0-1.3); Monocytes % 8.1 %; Neutrophils # 5.4 K/mcL (1.6-8.9); Platelet Count 177 K/mcL (140-400); Red Blood Count 3.41 M/mcL (3.82-4.97); Red Cell Distribution Width 13.9 % (11.5-14.5); Segmented Neutrophils % 64.2 %
[2018-11-03 03:59] LABS: Alanine Aminotransferase 11 Units/L (7-52); Albumin 3.5 g/dL (3.5-5.7); Albumin/Globulin Ratio 1.5 (1.1-2.2); Alkaline Phosphatase 55 Units/L (34-104); Aspartate Amino Transferase 13 Units/L (13-39); BUN/Creatinine Ratio 14 (6-26); Bilirubin,Total 0.4 mg/dL (0.3-1.0); Blood Urea Nitrogen 15 mg/dL (8-23); Calcium 8.9 mg/dL (8.6-10.3); Carbon Dioxide 22 mEq/L (23-29); Chloride 98 mEq/L (98-107); Globulin 2.4 g/dL (2.4-3.5); Glucose 269 mg/dL (70-105); Magnesium 1.2 mg/dL (1.6-2.6); Osmolality,Calculated 284 (280-300); Potassium 4.3 mEq/L (3.5-5.1); Sodium 132 mEq/L (136-145); Total Protein 5.9 g/dL (6.4-8.9); eGFR For Non-African Americans 50 (> 60)
[2018-11-03] MEDS: *HR* Heparin 5,000 UNIT/ML VIAL SQ SCH ×2 (05:59→17:44)
[2018-11-03] MEDS: Insulin LISPRO 300 UNITS/3 ML VIAL SQ SCH ×3 (08:08→16:34)
[2018-11-03] MEDS: Magnesium Oxide 400 MG TABLET PO SCH (08:09)
[2018-11-03] MEDS: Sulfamethoxazole/Trimeth DS 1 EACH TABLET PO SCH (08:09)
[2018-11-03] MEDS: amLODIPine 5 MG TABLET PO SCH (08:09)
[2018-11-03] MEDS: Aspirin Enteric Coated 81 MG Tablet PO SCH (08:09)
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
[2018-11-03 10:10] LABS: Creatine Kinase 38 Units/L (30-223)
[2018-11-03] MEDS: Sulfamethoxazole/Trimeth SS 1 TAB PO SCH (20:50)
--- NOTE | 2018-11-03 21:07 | Electrocardiograph Report ---
[address] [place] [address] Test Date: 2018-11-02 Pat Name: Mitzi Fonseca Department: EXAM10 Room: 3A33 Gender: F Trimmer Machine: : [id number] Requested By: Rd Prabhakar Order Number: [id number] Reading MD: Paz Gaspar Measurements Intervals [place] Rate: 91 P: 72 [place]: 140 QRS: 50 QRSD: 113 T: 66 QT: 398 QTc: 490 Interpretive Statements Sinus rhythm Incomplete right bundle branch block Low voltage, extremity leads Borderline prolonged QT interval Electronically Signed On 11-03-2018 21:06:13 EST by Paz Gaspar
[2018-11-04] MEDS: *HR* Heparin 5,000 UNIT/ML VIAL SQ SCH ×2 (05:43→17:44)
[2018-11-04] MEDS: Insulin LISPRO 300 UNITS/3 ML VIAL SQ SCH ×3 (07:41→16:43)
[2018-11-04] MEDS: Sulfamethoxazole/Trimeth SS 1 TAB PO SCH (10:22)
[2018-11-04] MEDS: amLODIPine 5 MG TABLET PO SCH (10:22)
[2018-11-04] MEDS: Aspirin Enteric Coated 81 MG Tablet PO SCH (10:22)
[2018-11-04] MEDS: Magnesium Oxide 400 MG TABLET PO SCH (10:23)
[2018-11-04] MEDS: *HR* HYDROcodone/Acet 5/325 mg TABLET PO PRN (12:20)
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
[2018-11-04] MEDS: predniSONE 20 MG TABLET PO SCH (17:26)
[2018-11-04 18:35] LABS: Adenovirus Not Detected (Not Detect); Bordetella Pertussis Not Detected (Not Detect); Chlamydophila pneumoniae Not Detected (Not Detect); Coronavirus 229E Not Detected (Not Detect); Coronavirus HKU1 Not Detected (Not Detect); Coronavirus NL63 Not Detected (Not Detect); Coronavirus OC43 Not Detected (Not Detect); Human Metapneumovirus Not Detected (Not Detect); Human Rhinovirus/Enterovirus Not Detected (Not Detect); Influenza A Subtype 2009 H1 Not Detected (Not Detect); Influenza A Untypeable Not Detected (Not Detect); Influenza B Not Detected (Not Detect); Mycoplasma pneumoniae Not Detected (Not Detect); Parainfluenza Virus 1 Not Detected (Not Detect); Parainfluenza Virus 2 Not Detected (Not Detect); Parainfluenza Virus 3 Not Detected (Not Detect); Parainfluenza Virus 4 Not Detected (Not Detect); Respiratory Syncytial Virus Not Detected (Not Detect)
[2018-11-04] MEDS: *HR* Metformin 500 MG TABLET PO SCH (20:23)
[2018-11-04] MEDS: *HR* LORazepam 0.5 MG TABLET PO PRN (20:23)
[2018-11-04] MEDS ORDERED: traZODone 50 MG TABLET PO SCH (21:00)
[2018-11-05] MEDS: *HR* HYDROcodone/Acet 5/325 mg TABLET PO PRN (02:52)
[2018-11-05] MEDS: *HR* Heparin 5,000 UNIT/ML VIAL SQ SCH (06:22)
[2018-11-05] MEDS: Magnesium Oxide 400 MG TABLET PO SCH (08:29)
[2018-11-05] MEDS: *HR* Metformin 500 MG TABLET PO SCH (08:29)
[2018-11-05] MEDS: predniSONE 20 MG TABLET PO SCH (08:29)
[2018-11-05] MEDS: amLODIPine 5 MG TABLET PO SCH (08:29)
[2018-11-05] MEDS: Aspirin Enteric Coated 81 MG Tablet PO SCH (08:30)
[2018-11-05] MEDS: Insulin LISPRO 300 UNITS/3 ML VIAL SQ SCH ×2 (08:30→11:49)
[2018-11-05] MEDS ORDERED: Venlafaxine XR (24 HR) 75 MG CAP.ER.24H PO SCH (09:00)
[2018-11-05 10:40] VITALS: BP 127/77
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
[2018-11-05] MEDS ORDERED: 0.9 % Sodium Chloride 1,000 ML IVC ONE (11:53)
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
== END 2018-11-05 14:47 | disposition home health service (06) ==
LOC: EMEROOARM 15:37 → 3ANU 15:37 → SUATTDRO 21:10 → 3ANU 22:42
PROVIDERS: ADMIT Family Medicine; ATTEND Internal Medicine

== ENCOUNTER 2019-06-13 09:28 | Inpatient (IN) ==
[2019-06-13] MEDS ORDERED: 0.9 % Sodium Chloride 1,000 ML IVC ONE (09:52)
[2019-06-13] MEDS ORDERED: Ondansetron 4 MG/2 ML VIAL IVP ONE ×2 (09:52→14:45)
[2019-06-13] MEDS ORDERED: Isovue-370 500 ML BOTTLE IVP ONE (09:54)
[2019-06-13 10:04] LABS: Basophils # 0.1 K/mcL (0.0-0.2); Basophils % 0.5 %; Eosinophils % 0.2 %; Hematocrit 40.1 % (35.3-44.9); Hemoglobin 13.9 g/dL (11.5-15.4); Immature Granulocytes % 2.6 % (0-4); Lymphocytes # 2.4 K/mcL (0.6-4.6); Lymphocytes % 18.4 %; Mean Corpuscular HGB Conc 34.7 g/dL (31.6-35.5); Mean Corpuscular Hemoglobin 30.3 pg (28.0-33.3); Mean Corpuscular Volume 87.4 fL (83.0-100.0); Mean Platelet Volume 9.9 fL (9.4-12.4); Monocytes # 1.1 K/mcL (0.0-1.3); Monocytes % 8.5 %; Neutrophils # 8.9 K/mcL (1.6-8.9); Platelet Count 206 K/mcL (140-400); Red Blood Count 4.59 M/mcL (3.82-4.97); Red Cell Distribution Width 12.7 % (11.5-14.5); Segmented Neutrophils % 69.8 %; White Blood Count 12.8 K/mcL (4.3-11.1)
[2019-06-13 11:33] LABS: Bilirubin,Urine Small (Negative); Blood,Urine Moderate (Negative); Color,Urine Yellow (Yellow); Glucose,Urine (UA) Normal (Normal); Ketones,Urine 80 mg/dL (Negative); Leukocyte Esterase,Urine Moderate (Negative); Nitrite,Urine Negative (Negative); Protein,Urine 100 mg/dL (Neg-Trace); Specific Gravity,Urine 1.019 (1.010-1.025); Urobilinogen,Urine Normal (Normal)
[2019-06-13 11:42] LABS: Clarity,Urine Slightly Hazy (Clear)
[2019-06-13 11:52] LABS: Squamous Epithelial Cell,Urine Moderate per lpf (None-Few)
[2019-06-13 11:53] LABS: Hyaline Casts,Urine Few per lpf (None-Few)
[2019-06-13 11:54] LABS: WBC,Urine 30-50 per hpf (0-3)
[2019-06-13 11:55] LABS: Yeast,Urine Many per hpf (None Seen)
[2019-06-13 11:56] LABS: Bacteria,Urine Few per hpf (None-Few)
[2019-06-13 12:06] LABS: Alanine Aminotransferase 12 Units/L (7-52); Albumin/Globulin Ratio 1.6 (1.1-2.2); Alkaline Phosphatase 40 Units/L (34-104); Aspartate Amino Transferase 16 Units/L (13-39); BUN/Creatinine Ratio 25 (6-26); Bilirubin,Direct 0.2 mg/dL (0.0-0.2); Bilirubin,Indirect 1.1 mg/dL (0.0-1.2); Bilirubin,Total 1.3 mg/dL (0.3-1.0); Blood Urea Nitrogen 21 mg/dL (8-23); Calcium 8.3 mg/dL (8.6-10.3); Carbon Dioxide 21 mEq/L (23-29); Chloride 96 mEq/L (98-107); Globulin 2.5 g/dL (2.4-3.5); Glucose 201 mg/dL (70-105); Lipase 34 Units/L (11-82); Osmolality,Calculated 291 (280-300); Potassium 3.6 mEq/L (3.5-5.1); Sodium 136 mEq/L (136-145); Total Protein 6.5 g/dL (6.4-8.9); eGFR For African Americans > 60 (> 60); eGFR For Non-African Americans > 60 (> 60)
[2019-06-13] MEDS ORDERED: MetroNIDAZOLE 500 MG/100 ML 500 MG/100 ML BAG IVPB ONE (13:42)
[2019-06-13] MEDS ORDERED: cefTRIAXone 1,000 MG in Water for inj. (sterile) 10 ML IVP ONE (13:42)
[2019-06-13] MEDS ORDERED: Metoprolol XL (24 HR) Succ 25 MG TAB.ER.24H PO ONE (14:45)
[2019-06-13] MEDS ORDERED: Naloxone 0.4 MG/ML INJ IVP PRN (15:19)
[2019-06-13] MEDS ORDERED: Ondansetron 4 MG/2 ML VIAL IVP PRN (15:19)
[2019-06-13] MEDS ORDERED: Dextrose Gel 15 GM/37.5 ML TUBE PO PRN ×2 (15:57)
[2019-06-13] MEDS ORDERED: *HR* Dextrose 50 % in Water (Syg) 50 ML SYRINGE IVP PRN (15:57)
[2019-06-13] MEDS ORDERED: D5% in Water 1,000 ML IVC PRN (15:57)
[2019-06-13] MEDS: Insulin LISPRO 300 UNITS/3 ML VIAL SQ SCH ×2 (16:39→23:56)
[2019-06-13] MEDS: Pantoprazole 40 MG VIAL IVP SCH (16:39)
[2019-06-13] MEDS: 0.9 % Sodium Chloride 1,000 ML IVC SCH (16:40)
[2019-06-13] MEDS: *HR* Heparin 5,000 UNIT/ML VIAL SQ SCH (18:31)
[2019-06-13] MEDS: MetroNIDAZOLE 500 MG/100 ML 500 MG/100 ML BAG IVPB SCH (23:42)
[2019-06-14] MEDS: Insulin LISPRO 300 UNITS/3 ML VIAL SQ SCH ×4 (01:06→17:52)
[2019-06-14 04:44] LABS: Basophils % 0.3 %; Eosinophils % 0.1 %; Hematocrit 38.5 % (35.3-44.9); Hemoglobin 13.3 g/dL (11.5-15.4); Immature Granulocytes % 1.8 % (0-4); Lymphocytes # 1.9 K/mcL (0.6-4.6); Lymphocytes % 15.1 %; Mean Corpuscular HGB Conc 34.5 g/dL (31.6-35.5); Mean Corpuscular Hemoglobin 29.9 pg (28.0-33.3); Mean Corpuscular Volume 86.5 fL (83.0-100.0); Mean Platelet Volume 9.9 fL (9.4-12.4); Monocytes # 1.2 K/mcL (0.0-1.3); Monocytes % 9.6 %; Neutrophils # 9.3 K/mcL (1.6-8.9); Platelet Count 204 K/mcL (140-400); Red Blood Count 4.45 M/mcL (3.82-4.97); Red Cell Distribution Width 12.9 % (11.5-14.5); Segmented Neutrophils % 73.1 %; White Blood Count 12.8 K/mcL (4.3-11.1)
[2019-06-14 05:20] LABS: BUN/Creatinine Ratio 17 (6-26); Blood Urea Nitrogen 13 mg/dL (8-23); Calcium 7.7 mg/dL (8.6-10.3); Carbon Dioxide 24 mEq/L (23-29); Chloride 97 mEq/L (98-107); Glucose 163 mg/dL (70-105); Magnesium < 0.5 mg/dL (1.6-2.6); Osmolality,Calculated 280 (280-300); Potassium 2.8 mEq/L (3.5-5.1); Sodium 133 mEq/L (136-145); eGFR For African Americans > 60 (> 60); eGFR For Non-African Americans > 60 (> 60)
[2019-06-14] MEDS: *HR* Heparin 5,000 UNIT/ML VIAL SQ SCH ×2 (05:32→17:52)
[2019-06-14] MEDS: Pantoprazole 40 MG VIAL IVP SCH ×2 (05:33→13:46)
[2019-06-14] MEDS: MetroNIDAZOLE 500 MG/100 ML 500 MG/100 ML BAG IVPB SCH ×2 (07:52→17:52)
[2019-06-14] MEDS ORDERED: cefTRIAXone 1,000 MG in Water for inj. (sterile) 10 ML IVP SCH (09:00)
[2019-06-14] MEDS: Potassium Chloride 40 MEQ in D5% in 0.9% NACL 1,000 ML IVC SCH (12:09)
[2019-06-14] MEDS: Metoprolol XL (24 HR) Succ 25 MG TAB.ER.24H PO SCH (12:10)
[2019-06-14] MEDS: levoFLOXacin 500 MG/100 ML 500 MG/100 ML BAG IVPB SCH (12:10)
[2019-06-14] MEDS ORDERED: *HR* LORazepam 2 MG/ML VIAL IVP ONE (12:59)
[2019-06-14 19:39] LABS: BUN/Creatinine Ratio 14 (6-26); Blood Urea Nitrogen 13 mg/dL (8-23); Calcium 7.3 mg/dL (8.6-10.3); Carbon Dioxide 22 mEq/L (23-29); Chloride 98 mEq/L (98-107); Glucose 195 mg/dL (70-105); Magnesium 0.9 mg/dL (1.6-2.6); Osmolality,Calculated 277 (280-300); Potassium 3.7 mEq/L (3.5-5.1); Sodium 131 mEq/L (136-145); eGFR For African Americans > 60 (> 60); eGFR For Non-African Americans 58 (> 60)
[2019-06-14] MEDS: Magnesium Oxide 400 MG TABLET PO SCH (20:23)
[2019-06-14] MEDS: traZODone 50 MG TABLET PO SCH (20:23)
[2019-06-15] MEDS: MetroNIDAZOLE 500 MG/100 ML 500 MG/100 ML BAG IVPB SCH ×3 (01:00→17:44)
[2019-06-15] MEDS: Potassium Chloride 40 MEQ in D5% in 0.9% NACL 1,000 ML IVC SCH (01:00)
[2019-06-15] MEDS: Insulin LISPRO 300 UNITS/3 ML VIAL SQ SCH ×5 (01:01→21:32)
[2019-06-15] MEDS: *HR* Heparin 5,000 UNIT/ML VIAL SQ SCH ×2 (05:50→17:45)
[2019-06-15] MEDS: Magnesium Oxide 400 MG TABLET PO SCH ×2 (07:47→21:31)
[2019-06-15] MEDS: predniSONE 10 MG TABLET PO SCH (07:48)
[2019-06-15] MEDS: *HR* HYDROcodone/Acet 5/325 mg TABLET PO PRN (07:48)
[2019-06-15] MEDS: Metoprolol XL (24 HR) Succ 25 MG TAB.ER.24H PO SCH (07:48)
[2019-06-15] MEDS: Pantoprazole 40 MG VIAL IVP SCH (07:50)
[2019-06-15] MEDS ORDERED: D5% in 0.9% NACL 1,000 ML IVC SCH (08:15)
[2019-06-15] MEDS: Insulin DETEMIR 100 UNIT/ML X5UNITS SQ SCH (21:31)
[2019-06-15] MEDS: traZODone 50 MG TABLET PO SCH (21:31)
[2019-06-15] MEDS: *HR* LORazepam 0.5 MG TABLET PO SCH (21:31)
[2019-06-16] MEDS: MetroNIDAZOLE 500 MG/100 ML 500 MG/100 ML BAG IVPB SCH ×2 (00:35→08:36)
[2019-06-16 04:28] LABS: Basophils % 0.2 %; Eosinophils # 0.1 K/mcL (0.0-0.6); Eosinophils % 1.6 %; Hematocrit 32.6 % (35.3-44.9); Immature Granulocytes % 1.3 % (0-4); Lymphocytes # 1.8 K/mcL (0.6-4.6); Lymphocytes % 20.7 %; Mean Corpuscular HGB Conc 32.5 g/dL (31.6-35.5); Mean Corpuscular Hemoglobin 29.9 pg (28.0-33.3); Mean Corpuscular Volume 91.8 fL (83.0-100.0); Mean Platelet Volume 9.4 fL (9.4-12.4); Monocytes # 0.9 K/mcL (0.0-1.3); Neutrophils # 5.6 K/mcL (1.6-8.9); Platelet Count 124 K/mcL (140-400); Red Blood Count 3.55 M/mcL (3.82-4.97); Red Cell Distribution Width 12.7 % (11.5-14.5); Segmented Neutrophils % 65.2 %; White Blood Count 8.6 K/mcL (4.3-11.1)
[2019-06-16 04:41] LABS: BUN/Creatinine Ratio 13 (6-26); Blood Urea Nitrogen 9 mg/dL (8-23); Calcium 6.8 mg/dL (8.6-10.3); Carbon Dioxide 21 mEq/L (23-29); Chloride 106 mEq/L (98-107); Glucose 171 mg/dL (70-105); Magnesium 1.3 mg/dL (1.6-2.6); Osmolality,Calculated 283 (280-300); Phosphorous 1.9 mg/dL (2.7-4.5); Potassium 3.7 mEq/L (3.5-5.1); Sodium 135 mEq/L (136-145); eGFR For African Americans > 60 (> 60); eGFR For Non-African Americans > 60 (> 60)
[2019-06-16 04:51] LABS: Hemoglobin 10.6 g/dL (11.5-15.4)
[2019-06-16] MEDS: *HR* Heparin 5,000 UNIT/ML VIAL SQ SCH ×2 (05:40→16:54)
[2019-06-16] MEDS: Insulin LISPRO 300 UNITS/3 ML VIAL SQ SCH ×4 (08:12→21:06)
[2019-06-16] MEDS: Aspirin Enteric Coated 81 MG Tablet PO SCH (08:35)
[2019-06-16] MEDS: Pantoprazole 40 MG VIAL IVP SCH (08:35)
[2019-06-16] MEDS: predniSONE 10 MG TABLET PO SCH (08:35)
[2019-06-16] MEDS: Magnesium Oxide 400 MG TABLET PO SCH ×2 (08:35→21:05)
[2019-06-16] MEDS: Metoprolol XL (24 HR) Succ 25 MG TAB.ER.24H PO SCH (08:35)
[2019-06-16] MEDS: *HR* HYDROcodone/Acet 5/325 mg TABLET PO PRN (08:36)
[2019-06-16] MEDS: Insulin DETEMIR 100 UNIT/ML X5UNITS SQ SCH ×2 (08:37→21:06)
[2019-06-16] MEDS: levoFLOXacin 500 MG/100 ML 500 MG/100 ML BAG IVPB SCH (12:02)
[2019-06-16] MEDS: metroNIDAZOLE 500 MG TABLET PO SCH ×2 (16:52→21:06)
[2019-06-16] MEDS: 0.9 % Sodium Chloride 1,000 ML IVC SCH (19:17)
[2019-06-16] MEDS: *HR* LORazepam 0.5 MG TABLET PO SCH (21:06)
[2019-06-16] MEDS: traZODone 50 MG TABLET PO SCH (21:06)
[2019-06-17] MEDS: *HR* HYDROcodone/Acet 5/325 mg TABLET PO PRN (03:04)
[2019-06-17] MEDS: *HR* Heparin 5,000 UNIT/ML VIAL SQ SCH ×2 (05:24→17:04)
[2019-06-17 06:13] LABS: BUN/Creatinine Ratio 15 (6-26); Blood Urea Nitrogen 11 mg/dL (8-23); Calcium 7.1 mg/dL (8.6-10.3); Carbon Dioxide 24 mEq/L (23-29); Chloride 105 mEq/L (98-107); Glucose 174 mg/dL (70-105); Magnesium 1.4 mg/dL (1.6-2.6); Osmolality,Calculated 286 (280-300); Phosphorous 2.2 mg/dL (2.7-4.5); Potassium 3.9 mEq/L (3.5-5.1); Sodium 136 mEq/L (136-145); eGFR For African Americans > 60 (> 60); eGFR For Non-African Americans > 60 (> 60)
[2019-06-17] MEDS: Insulin LISPRO 300 UNITS/3 ML VIAL SQ SCH ×4 (07:43→20:28)
[2019-06-17] MEDS: Aspirin Enteric Coated 81 MG Tablet PO SCH (07:51)
[2019-06-17] MEDS: Metoprolol XL (24 HR) Succ 25 MG TAB.ER.24H PO SCH (07:51)
[2019-06-17] MEDS: predniSONE 10 MG TABLET PO SCH (07:51)
[2019-06-17] MEDS: metroNIDAZOLE 500 MG TABLET PO SCH ×3 (07:51→20:27)
[2019-06-17] MEDS: Magnesium Oxide 400 MG TABLET PO SCH ×2 (07:51→20:27)
[2019-06-17] MEDS: Insulin DETEMIR 100 UNIT/ML X5UNITS SQ SCH ×2 (07:52→20:29)
[2019-06-17] MEDS: *HR* LORazepam 0.5 MG TABLET PO SCH (20:27)
[2019-06-17] MEDS: traZODone 50 MG TABLET PO SCH (20:28)
[2019-06-18] MEDS ORDERED: Menthol 9.1 MG LOZENGE PO PRN (00:30)
[2019-06-18] MEDS: *HR* Heparin 5,000 UNIT/ML VIAL SQ SCH (05:57)
[2019-06-18] MEDS: Insulin LISPRO 300 UNITS/3 ML VIAL SQ SCH ×2 (07:36→11:59)
[2019-06-18 07:46] LABS: BUN/Creatinine Ratio 18 (6-26); Blood Urea Nitrogen 12 mg/dL (8-23); Calcium 8.1 mg/dL (8.6-10.3); Carbon Dioxide 27 mEq/L (23-29); Chloride 105 mEq/L (98-107); Glucose 142 mg/dL (70-105); Magnesium 1.3 mg/dL (1.6-2.6); Osmolality,Calculated 284 (280-300); Phosphorous 2.2 mg/dL (2.7-4.5); Potassium 3.7 mEq/L (3.5-5.1); Sodium 136 mEq/L (136-145); eGFR For African Americans > 60 (> 60); eGFR For Non-African Americans > 60 (> 60)
[2019-06-18] MEDS ORDERED: Magnesium Oxide 400 MG TABLET PO ONE (07:59)
[2019-06-18] MEDS: Magnesium Oxide 400 MG TABLET PO SCH (08:03)
[2019-06-18] MEDS: predniSONE 10 MG TABLET PO SCH (08:04)
[2019-06-18] MEDS: Metoprolol XL (24 HR) Succ 25 MG TAB.ER.24H PO SCH (08:04)
[2019-06-18] MEDS: metroNIDAZOLE 500 MG TABLET PO SCH (08:04)
[2019-06-18] MEDS: Aspirin Enteric Coated 81 MG Tablet PO SCH (08:04)
[2019-06-18] MEDS: Insulin DETEMIR 100 UNIT/ML X5UNITS SQ SCH (08:04)
[2019-06-18] MEDS ORDERED: levoFLOXacin 500 MG TABLET PO SCH (09:00)
[2019-06-18 14:56] VITALS: BP 124/74
== END 2019-06-18 17:30 | DRG 386 ==
LOC: EMEROOARM 09:28 → 3ANU 09:28 → SUATTDRO 14:20 → 3ANU 15:11
PROVIDERS: ADMIT Pharmacist; ATTEND Internal Medicine

== ENCOUNTER 2019-11-09 12:16 | Inpatient (IN) ==
[2019-11-09] MEDS ORDERED: Isovue-370 500 ML BOTTLE IVP ONE (12:30)
[2019-11-09] MEDS ORDERED: Morphine Sulfate 2 MG/ML SYRINGE IVP ONE (12:31)
[2019-11-09 13:39] LABS: Basophils # 0.1 K/mcL (0.0-0.2); Basophils % 0.5 %; Eosinophils % 0.3 %; Hematocrit 37.8 % (35.3-44.9); Hemoglobin 12.6 g/dL (11.5-15.4); Immature Granulocytes % 3.2 % (0-4); Lymphocytes # 1.9 K/mcL (0.6-4.6); Lymphocytes % 13.8 %; Mean Corpuscular HGB Conc 33.3 g/dL (31.6-35.5); Mean Corpuscular Hemoglobin 28.8 pg (28.0-33.3); Mean Corpuscular Volume 86.3 fL (83.0-100.0); Mean Platelet Volume 9.6 fL (9.4-12.4); Monocytes # 1.4 K/mcL (0.0-1.3); Monocytes % 10.4 %; Neutrophils # 9.6 K/mcL (1.6-8.9); Platelet Count 393 K/mcL (140-400); Red Blood Count 4.38 M/mcL (3.82-4.97); Red Cell Distribution Width 12.4 % (11.5-14.5); Segmented Neutrophils % 71.8 %; White Blood Count 13.4 K/mcL (4.3-11.1)
[2019-11-09 13:54] LABS: Albumin 3.7 g/dL (3.5-5.7); Albumin/Globulin Ratio 0.9 (1.1-2.2); Bilirubin,Total 0.7 mg/dL (0.3-1.0); Calcium 10.3 mg/dL (8.6-10.3); Globulin 3.9 g/dL (2.4-3.5); Potassium 3.9 mEq/L (3.5-5.1); Total Protein 7.6 g/dL (6.4-8.9)
[2019-11-09] MEDS ORDERED: 0.9 % Sodium Chloride 1,000 ML IV ONE (13:59)
[2019-11-09] MEDS ORDERED: Cefepime HCl 2,000 MG in Water for inj. (sterile) 20 ML IVP STA (14:53)
[2019-11-09] MEDS ORDERED: Naloxone 0.4 MG/ML INJ IVP PRN (17:03)
[2019-11-09] MEDS ORDERED: Ondansetron ODT 4 MG TAB.RAPDIS SL PRN (18:57)
[2019-11-09] MEDS ORDERED: Acetaminophen 325 MG TABLET PO PRN (18:57)
[2019-11-09] MEDS ORDERED: *HR* OxyCODONE Immed Rel 5 MG TABLET PO PRN (18:57)
[2019-11-09] MEDS ORDERED: *HR* FentaNYL (PF) 100 MCG/2 ML VIAL IVP PRN (19:24)
[2019-11-09] MEDS: 0.9 % Sodium Chloride 1,000 ML IVC SCH (21:34)
[2019-11-09] MEDS: *HR* OxyCODONE Immed Rel 5 MG TABLET PO PRN (21:47)
[2019-11-09] MEDS: traZODone 50 MG TABLET PO SCH (21:48)
[2019-11-09] MEDS ORDERED: D5% in Water 1,000 ML IVC PRN (23:14)
[2019-11-09] MEDS ORDERED: Dextrose Gel 15 GM/37.5 ML TUBE PO PRN ×2 (23:14)
[2019-11-09] MEDS ORDERED: *HR* Dextrose 50 % in Water (Syg) 50 ML SYRINGE IVP PRN (23:14)
[2019-11-10 01:40] LABS: Bilirubin,Urine Negative (Negative); Blood,Urine Trace (Negative); Clarity,Urine Cloudy (Clear); Color,Urine Yellow (Yellow); Glucose,Urine (UA) Normal (Normal); Ketones,Urine Negative (Negative); Leukocyte Esterase,Urine Moderate (Negative); Nitrite,Urine Negative (Negative); Protein,Urine Negative (Neg-Trace); Urobilinogen,Urine Normal (Normal)
[2019-11-10 01:42] LABS: Bacteria,Urine None Seen per hpf (None-Few); Hyaline Casts,Urine None Seen per lpf (None-Few); RBC,Urine 0-3 per hpf (0-3); Squamous Epithelial Cell,Urine Few per lpf (None-Few); WBC,Urine 15-30 per hpf (0-3)
[2019-11-10 01:50] LABS: Sodium, Urine 26.4 mEq/L
[2019-11-10 05:45] LABS: Basophils # 0.1 K/mcL (0.0-0.2); Basophils % 0.8 %; Eosinophils # 0.1 K/mcL (0.0-0.6); Hematocrit 34.1 % (35.3-44.9); Hemoglobin 11.1 g/dL (11.5-15.4); Immature Granulocytes % 4.5 % (0-4); Lymphocytes # 1.9 K/mcL (0.6-4.6); Lymphocytes % 18.7 %; Mean Corpuscular HGB Conc 32.6 g/dL (31.6-35.5); Mean Platelet Volume 9.6 fL (9.4-12.4); Monocytes # 1.5 K/mcL (0.0-1.3); Monocytes % 14.8 %; Neutrophils # 6.2 K/mcL (1.6-8.9); Platelet Count 316 K/mcL (140-400); Red Blood Count 3.83 M/mcL (3.82-4.97); Red Cell Distribution Width 12.4 % (11.5-14.5); Segmented Neutrophils % 60.2 %; White Blood Count 10.3 K/mcL (4.3-11.1)
[2019-11-10 06:04] LABS: Calcium 9.1 mg/dL (8.6-10.3); Potassium 3.4 mEq/L (3.5-5.1)
[2019-11-10] MEDS: *HR* Heparin 5,000 UNIT/ML VIAL SQ SCH ×2 (06:09→16:44)
[2019-11-10] MEDS: Insulin LISPRO 300 UNITS/3 ML VIAL SQ SCH ×4 (08:31→20:39)
[2019-11-10] MEDS: 0.9 % Sodium Chloride 1,000 ML IVC SCH ×2 (08:34→23:25)
[2019-11-10] MEDS: Aspirin Enteric Coated 81 MG Tablet PO SCH (08:35)
[2019-11-10] MEDS: Metoprolol XL (24 HR) Succ 25 MG TAB.ER.24H PO SCH (08:35)
[2019-11-10] MEDS: *HR* OxyCODONE Immed Rel 5 MG TABLET PO PRN ×2 (10:06→16:49)
[2019-11-10] MEDS ORDERED: Gadolinium Contrast Agent (WT Based) IV PRN (10:52)
[2019-11-10] MEDS ORDERED: Potassium Chloride Elixir 20 MEQ/15 ML UDC PO ONE (11:06)
[2019-11-10] MEDS: Cefepime HCl 1,000 MG in Water for inj. (sterile) 10 ML IVP SCH (11:56)
[2019-11-10] MEDS: traZODone 50 MG TABLET PO SCH (20:29)
[2019-11-11] MEDS: *HR* Heparin 5,000 UNIT/ML VIAL SQ SCH ×2 (04:40→16:58)
[2019-11-11] MEDS: *HR* OxyCODONE Immed Rel 5 MG TABLET PO PRN ×3 (04:40→21:20)
[2019-11-11 07:08] LABS: Basophils % 0.3 %; Eosinophils # 0.1 K/mcL (0.0-0.6); Eosinophils % 0.7 %; Hematocrit 29.9 % (35.3-44.9); Hemoglobin 9.7 g/dL (11.5-15.4); Immature Granulocytes % 4.2 % (0-4); Lymphocytes # 1.9 K/mcL (0.6-4.6); Lymphocytes % 19.7 %; Mean Corpuscular HGB Conc 32.4 g/dL (31.6-35.5); Mean Corpuscular Volume 89.5 fL (83.0-100.0); Mean Platelet Volume 9.4 fL (9.4-12.4); Monocytes # 1.2 K/mcL (0.0-1.3); Monocytes % 12.1 %; Platelet Count 280 K/mcL (140-400); Red Blood Count 3.34 M/mcL (3.82-4.97); Red Cell Distribution Width 12.5 % (11.5-14.5); White Blood Count 9.6 K/mcL (4.3-11.1)
[2019-11-11 07:28] LABS: BUN/Creatinine Ratio 39 (6-26); Blood Urea Nitrogen 35 mg/dL (8-23); Calcium 8.6 mg/dL (8.6-10.3); Carbon Dioxide 23 mEq/L (23-29); Chloride 106 mEq/L (98-107); Glucose 130 mg/dL (70-105); Osmolality,Calculated 292 (280-300); Potassium 3.8 mEq/L (3.5-5.1); Sodium 136 mEq/L (136-145); eGFR For African Americans > 60 (> 60); eGFR For Non-African Americans 59 (> 60)
[2019-11-11] MEDS: Insulin LISPRO 300 UNITS/3 ML VIAL SQ SCH ×4 (07:50→21:30)
[2019-11-11] MEDS: Metoprolol XL (24 HR) Succ 25 MG TAB.ER.24H PO SCH (08:46)
[2019-11-11] MEDS: Aspirin Enteric Coated 81 MG Tablet PO SCH (08:46)
[2019-11-11] MEDS: Cefepime HCl 1,000 MG in Water for inj. (sterile) 10 ML IVP SCH (12:03)
[2019-11-11 15:24] LABS: Hematocrit 31.2 % (35.3-44.9); Hemoglobin 9.8 g/dL (11.5-15.4)
[2019-11-11] MEDS: traZODone 50 MG TABLET PO SCH (21:20)
[2019-11-12 05:53] LABS: Basophils # 0.1 K/mcL (0.0-0.2); Basophils % 0.4 %; Eosinophils # 0.1 K/mcL (0.0-0.6); Hematocrit 31.4 % (35.3-44.9); Hemoglobin 9.7 g/dL (11.5-15.4); Immature Granulocytes % 2.5 % (0-4); Lymphocytes # 1.8 K/mcL (0.6-4.6); Lymphocytes % 15.7 %; Mean Corpuscular HGB Conc 30.9 g/dL (31.6-35.5); Mean Corpuscular Hemoglobin 28.2 pg (28.0-33.3); Mean Corpuscular Volume 91.3 fL (83.0-100.0); Mean Platelet Volume 9.8 fL (9.4-12.4); Monocytes # 1.4 K/mcL (0.0-1.3); Monocytes % 12.4 %; Neutrophils # 7.8 K/mcL (1.6-8.9); Platelet Count 283 K/mcL (140-400); Red Blood Count 3.44 M/mcL (3.82-4.97); Red Cell Distribution Width 12.5 % (11.5-14.5); White Blood Count 11.4 K/mcL (4.3-11.1)
[2019-11-12] MEDS: *HR* Heparin 5,000 UNIT/ML VIAL SQ SCH ×2 (06:15→16:40)
[2019-11-12] MEDS: Aspirin Enteric Coated 81 MG Tablet PO SCH (07:40)
[2019-11-12] MEDS: Insulin LISPRO 300 UNITS/3 ML VIAL SQ SCH ×4 (07:41→20:57)
[2019-11-12] MEDS: Metoprolol XL (24 HR) Succ 25 MG TAB.ER.24H PO SCH (07:41)
[2019-11-12] MEDS: Cefepime HCl 1,000 MG in Water for inj. (sterile) 10 ML IVP SCH (11:09)
[2019-11-12] MEDS: *HR* OxyCODONE Immed Rel 5 MG TABLET PO PRN ×2 (16:40→20:54)
[2019-11-12] MEDS: traZODone 50 MG TABLET PO SCH (20:54)
[2019-11-13 04:07] LABS: Basophils # 0.1 K/mcL (0.0-0.2); Basophils % 0.5 %; Eosinophils # 0.1 K/mcL (0.0-0.6); Eosinophils % 0.6 %; Hematocrit 31.7 % (35.3-44.9); Immature Granulocytes % 2.5 % (0-4); Lymphocytes # 2.2 K/mcL (0.6-4.6); Lymphocytes % 17.4 %; Mean Corpuscular HGB Conc 31.5 g/dL (31.6-35.5); Mean Corpuscular Hemoglobin 28.7 pg (28.0-33.3); Mean Corpuscular Volume 90.8 fL (83.0-100.0); Mean Platelet Volume 9.9 fL (9.4-12.4); Monocytes # 1.4 K/mcL (0.0-1.3); Monocytes % 10.6 %; Neutrophils # 8.7 K/mcL (1.6-8.9); Platelet Count 253 K/mcL (140-400); Red Blood Count 3.49 M/mcL (3.82-4.97); Red Cell Distribution Width 12.4 % (11.5-14.5); Segmented Neutrophils % 68.4 %; White Blood Count 12.7 K/mcL (4.3-11.1)
[2019-11-13 04:26] LABS: BUN/Creatinine Ratio 22 (6-26); Blood Urea Nitrogen 15 mg/dL (8-23); Calcium 9.1 mg/dL (8.6-10.3); Carbon Dioxide 25 mEq/L (23-29); Chloride 104 mEq/L (98-107); Glucose 143 mg/dL (70-105); Osmolality,Calculated 285 (280-300); Potassium 3.7 mEq/L (3.5-5.1); Sodium 136 mEq/L (136-145); eGFR For African Americans > 60 (> 60); eGFR For Non-African Americans > 60 (> 60)
[2019-11-13] MEDS: *HR* Heparin 5,000 UNIT/ML VIAL SQ SCH ×2 (06:11→16:07)
[2019-11-13] MEDS: Aspirin Enteric Coated 81 MG Tablet PO SCH (08:22)
[2019-11-13] MEDS: Metoprolol XL (24 HR) Succ 25 MG TAB.ER.24H PO SCH (08:23)
[2019-11-13] MEDS: *HR* OxyCODONE Immed Rel 5 MG TABLET PO PRN ×2 (08:23→21:00)
[2019-11-13] MEDS: Insulin LISPRO 300 UNITS/3 ML VIAL SQ SCH ×4 (08:24→21:01)
[2019-11-13] MEDS: Cefepime HCl 2,000 MG in Water for inj. (sterile) 20 ML IVP SCH ×2 (11:07→23:20)
[2019-11-13] MEDS: traZODone 50 MG TABLET PO SCH (21:00)
[2019-11-13] MEDS: Ciprofloxacin/Dex *EAR* Susp 7.5 ML BOTTLE LEFT EAR SCH (21:01)
[2019-11-14] MEDS: *HR* Heparin 5,000 UNIT/ML VIAL SQ SCH ×2 (05:35→18:13)
[2019-11-14] MEDS: Aspirin Enteric Coated 81 MG Tablet PO SCH (07:38)
[2019-11-14] MEDS: Ciprofloxacin/Dex *EAR* Susp 7.5 ML BOTTLE LEFT EAR SCH ×2 (07:38→20:32)
[2019-11-14] MEDS: Metoprolol XL (24 HR) Succ 25 MG TAB.ER.24H PO SCH (07:38)
[2019-11-14] MEDS: Insulin LISPRO 300 UNITS/3 ML VIAL SQ SCH ×4 (07:39→20:32)
[2019-11-14] MEDS: Cefepime HCl 2,000 MG in Water for inj. (sterile) 20 ML IVP SCH ×2 (11:31→22:57)
[2019-11-14 11:38] LABS: Basophils % 0.4 %; Eosinophils # 0.1 K/mcL (0.0-0.6); Eosinophils % 0.8 %; Hematocrit 30.2 % (35.3-44.9); Immature Granulocytes % 1.8 % (0-4); Lymphocytes # 1.4 K/mcL (0.6-4.6); Lymphocytes % 12.2 %; Mean Corpuscular HGB Conc 33.1 g/dL (31.6-35.5); Mean Corpuscular Hemoglobin 29.6 pg (28.0-33.3); Mean Corpuscular Volume 89.3 fL (83.0-100.0); Mean Platelet Volume 9.6 fL (9.4-12.4); Monocytes # 1.1 K/mcL (0.0-1.3); Monocytes % 10.1 %; Neutrophils # 8.5 K/mcL (1.6-8.9); Platelet Count 270 K/mcL (140-400); Red Blood Count 3.38 M/mcL (3.82-4.97); Red Cell Distribution Width 12.3 % (11.5-14.5); Segmented Neutrophils % 74.7 %; White Blood Count 11.3 K/mcL (4.3-11.1)
[2019-11-14 11:56] LABS: BUN/Creatinine Ratio 29 (6-26); Blood Urea Nitrogen 19 mg/dL (8-23); Calcium 9.1 mg/dL (8.6-10.3); Carbon Dioxide 25 mEq/L (23-29); Chloride 104 mEq/L (98-107); Glucose 179 mg/dL (70-105); Osmolality,Calculated 289 (280-300); Potassium 3.5 mEq/L (3.5-5.1); Sodium 136 mEq/L (136-145); eGFR For African Americans > 60 (> 60); eGFR For Non-African Americans > 60 (> 60)
[2019-11-14] MEDS ORDERED: Aminoglycoside Consult 1 EACH MC ONE (15:00)
[2019-11-14] MEDS ORDERED: *HR* Propofol 200 MG/20 ML VIAL IVP ONE (15:38)
[2019-11-14] MEDS ORDERED: Lidocaine -MPF 2% 2 ML VIAL ONE (15:50)
[2019-11-14] MEDS ORDERED: Ondansetron 4 MG/2 ML VIAL ONE (15:50)
[2019-11-14] MEDS ORDERED: Dexamethasone 4 MG/ML VIAL ONE (15:50)
[2019-11-14] MEDS ORDERED: Ciprofloxacin/Dex *EAR* Susp 7.5 ML BOTTLE ONE (15:52)
[2019-11-14] MEDS ORDERED: Morphine Sulfate 2 MG/ML SYRINGE IVP PRN (15:58)
[2019-11-14] MEDS ORDERED: Ondansetron 4 MG/2 ML VIAL IVP ONE (15:58)
[2019-11-14] MEDS ORDERED: *HR* PHENYLEPHRINE 1,000 MCG/10 ML SYRINGE IVP ONE (16:23)
[2019-11-14] MEDS ORDERED: *HR* OxyCODONE Immed Rel 5 MG TABLET PO PRN (16:34)
[2019-11-14] MEDS: traZODone 50 MG TABLET PO SCH (20:31)
[2019-11-15 02:33] LABS: Basophils % 0.2 %; Hematocrit 29.5 % (35.3-44.9); Hemoglobin 9.7 g/dL (11.5-15.4); Immature Granulocytes % 1.6 % (0-4); Lymphocytes # 0.9 K/mcL (0.6-4.6); Lymphocytes % 7.3 %; Mean Corpuscular HGB Conc 32.9 g/dL (31.6-35.5); Mean Corpuscular Hemoglobin 29.5 pg (28.0-33.3); Mean Corpuscular Volume 89.7 fL (83.0-100.0); Monocytes # 0.6 K/mcL (0.0-1.3); Monocytes % 4.5 %; Neutrophils # 10.5 K/mcL (1.6-8.9); Platelet Count 255 K/mcL (140-400); Red Blood Count 3.29 M/mcL (3.82-4.97); Red Cell Distribution Width 12.4 % (11.5-14.5); Segmented Neutrophils % 86.4 %; White Blood Count 12.1 K/mcL (4.3-11.1)
[2019-11-15 02:52] LABS: BUN/Creatinine Ratio 30 (6-26); Blood Urea Nitrogen 25 mg/dL (8-23); Calcium 8.9 mg/dL (8.6-10.3); Carbon Dioxide 21 mEq/L (23-29); Chloride 102 mEq/L (98-107); Glucose 351 mg/dL (70-105); Osmolality,Calculated 292 (280-300); Potassium 4.3 mEq/L (3.5-5.1); Sodium 132 mEq/L (136-145); eGFR For African Americans > 60 (> 60); eGFR For Non-African Americans > 60 (> 60)
[2019-11-15] MEDS: *HR* Heparin 5,000 UNIT/ML VIAL SQ SCH (05:32)
[2019-11-15] MEDS ORDERED: Artificial Tears SOLN 15 ML BOTTLE BOTH EYES PRN (06:21)
[2019-11-15] MEDS: Metoprolol XL (24 HR) Succ 25 MG TAB.ER.24H PO SCH (08:19)
[2019-11-15] MEDS: Aspirin Enteric Coated 81 MG Tablet PO SCH (08:19)
[2019-11-15] MEDS: Insulin LISPRO 300 UNITS/3 ML VIAL SQ SCH ×2 (08:21→12:12)
[2019-11-15] MEDS: Ciprofloxacin/Dex *EAR* Susp 7.5 ML BOTTLE LEFT EAR SCH (08:23)
[2019-11-15 10:56] VITALS: BP 133/73
[2019-11-15] MEDS: Cefepime HCl 2,000 MG in Water for inj. (sterile) 20 ML IVP SCH (12:12)
== END 2019-11-15 15:01 | DRG 133 ==
LOC: EMEROOARM 12:16 → 3BNU 12:16 → 2ANU 19:35 → SUATTDRO 11-10 18:24
PROVIDERS: ADMIT Internal Medicine; ATTEND Internal Medicine